=== PATIENT | male | born 1940 | race Caucasian/White ===

== ENCOUNTER → 2016-05-07 | Outpatient (CLI) | payer MEDICARE, BC ==
--- NOTE | 2016-05-07 16:15 | US ---
EXAMINATION TYPE: US thyroid st tissue head/neck DATE OF EXAM: 05/07/2016 2:49 PM COMPARISON: No previous CLINICAL HISTORY: 75-year-old male Thyroid Nodule. Ghazal's thyroiditis TECHNIQUE: Multiple sonographic images of the thyroid gland are obtained. FINDINGS: Right Lobe: 5.7 x 2.4 x 2.1cm, heterogeneous Left Lobe: 5.7 x 2.0 x 1.7cm, heterogeneous Isthmus Thickness: 0.6cm Previously, the thyroid gland measured up to 5.4 and 4.8 cm on the right and left sides, respectively . There is continued diffuse heterogeneous echotexture. No discrete nodule is seen. IMPRESSION: Continued diffuse glandular heterogeneity and progressive thyromegaly. Findings suggest diffuse thyro iditis. No discrete nodule.
== END | disposition home or self-care (01) ==
LOC: RADUSWWP 14:29
PROVIDERS: ATTEND Otolaryngology
DX: E01.0 Iodine-deficiency related diffuse (endemic) goiter (principal)
CPT/HCPCS: 76536

== ENCOUNTER 2016-09-01 08:01 | Day surgery (SDC) | payer MEDICARE, BC ==
[2016-08-27 13:47] VITALS: BMI 27.3
[~2016-09-01 08:01] MED LIST: LACTATED RINGERS 1,000 ML IV SCH
[2016-09-01 08:34] VITALS: TEMP 97.5
[2016-09-01] MEDS ORDERED: LIDOCAINE 1% 20 ML VIAL (10MG/ML) FOR IV START INTRADERMA ONE (08:46)
[2016-09-01] MEDS ORDERED: PROPOFOL 10 MG/ML 20 ML VIAL IV ONE (10:02)
[2016-09-01 10:52] VITALS: RESP 16
--- NOTE | 2016-09-01 11:02 | P.PCN ---
Date of Procedure: 09/01/16 Preoperative Diagnosis: Postoperative Diagnosis: Procedure(s) Performed: Procedures: 1. Esophagogastroduodenoscopy and biopsy. 2. Colonoscopy and biopsy. Preoperative diagnosis: Chronic reflux symptoms, rectal bleeding and history of polyps. Postoperative diagnosis: 1. Hiatal hernia with no evidence of esophagitis or complicated reflux disease. 2. Mild antral gastritis and duodenitis. 3. Sigmoid diverticulosis with no evidence of acute diverticulitis or strictures. 4. Short segments of nonspecific colitis in the distal sigmoid and distal rectum, biopsied, that could be related to radiation treatment. 5. Low-grade internal hemorrhoids without bleeding at the time of this exam. Preparation: HalfLytely prep. Sedation: Was provided by anesthesia. Brief clinical history: The patient is a 75-year-old male who is scheduled for this evaluation for the above reasons. The patient was evaluated in the office last month when he presented with intermittent rectal bleeding, 2 months duration he also reported constipation over the same period of time. His bleeding was described as fresh bleeding. He also has chronic reflux symptoms requiring PPI therapy. On his last colonoscopy in June 2014. A flat polyp around the hepatic flexure which was removed and pathology showed tubular adenoma. Patient had prior radiation therapy for prostate cancer. Procedure: With the patient on her left lateral decubitus position and after informed consent and adequate sedation, I passed the Olympus-GIF 160 video upper endoscope through the cricopharyngeus down the esophagus. GE junction was around 42-43 cm from the incisors and there was a small sliding hiatal hernia. The esophagus did not show any erosions, ulcers, strictures or Herr 's esophagus. The endoscope was then passed into the stomach which was insufflated with air and inspected in detail including the retroflex view in the cardia. There was some mottling and erythema in the antrum consistent with gastritis but no ulcers or erosions. Pyloric channel did not show any ulcers. Duodenal bulb, post bulbar area and descending duodenum showed minimal erythema. Because of his symptoms I obtained biopsies from the duodenum, antrum and esophagus then the endoscope was withdrawn and I proceeded with the colonoscopy. Perianal area did not show any fissures or fistulas. There were no masses felt on digital rectal examination. The Olympus CFQ 160L video colonoscope was then inserted in the rectum in the usual fashion and advanced to the cecum. There were several diverticular orifices seen scattered in the sigmoid with no evidence of acute diverticulitis or strictures. There were 2 short segments of nonspecific colitis in the distal sigmoid and distal rectum. The mucosa, otherwise, appeared healthy. There was no polyps or tumors seen. The area around the splenic flexure where he had a polyp removed did not show any residual or new pathology. I obtained biopsies in the sigmoid and rectum then I retroflexed the endoscope in the rectum before the endoscope was withdrawn. Low-grade internal hemorrhoids were noted with no evidence of bleeding. The patient tolerated the procedure well. Plan: The patient was reassured. Will await pathology results and make further recommendations. I will keep you updated on his progress. Implants: Indications for Procedure: Operative Findings: Description of Procedure:
[2016-09-01 11:13] VITALS: BP 115/68; PULSE 57
== END 2016-09-01 14:00 | disposition home or self-care (01) ==
LOC: ORWHC2ENDO 08:01
DX: K20.9 Esophagitis, unspecified (principal); K29.50 Unspecified chronic gastritis without bleeding; K44.9 Diaphragmatic hernia without obstruction or gangrene; K52.9 Noninfective gastroenteritis and colitis, unspecified; Z86.010 Personal history of colon polyps; K29.80 Duodenitis without bleeding; K57.30 Diverticulosis of large intestine without perforation or abscess without bleeding; Z95.5 Presence of coronary angioplasty implant and graft; K64.8 Other hemorrhoids; E78.5 Hyperlipidemia, unspecified; I10 Essential (primary) hypertension; I25.10 Atherosclerotic heart disease of native coronary artery without angina pectoris; E07.9 Disorder of thyroid, unspecified; N42.9 Disorder of prostate, unspecified; Z79.82 Long term (current) use of aspirin; Z79.899 Other long term (current) drug therapy; Z91.030 Bee allergy status
CPT/HCPCS: 88305; 88342; 45380; 43239; J2704

== ENCOUNTER 2016-11-23 09:54 | Day surgery (SDC) | payer MEDICARE, BC ==
[2016-11-19 10:52] VITALS: BMI 28.0
[2016-11-23 10:22] VITALS: RESP 18; TEMP 96.9
[2016-11-23] MEDS ORDERED: LIDOCAINE 1% 20 ML VIAL (10MG/ML) FOR IV START INTRADERMA ONE (10:23)
[2016-11-23] MEDS ORDERED: PROPOFOL 10 MG/ML 20 ML VIAL IV ONE (10:24)
[2016-11-23] MEDS ORDERED: fentaNYL (PF) 50 MCG/ML 2 ML AMP ONE (10:24)
[2016-11-23 11:11] VITALS: BP 131/77; PULSE 64
--- NOTE | 2016-11-23 13:53 | P.PCN ---
Date of Procedure: 11/23/16 Preoperative Diagnosis: Postoperative Diagnosis: Procedure(s) Performed: Procedure: Colonoscopy and argon plasma coagulation of rectal ectasias. Preoperative diagnosis: Rectal bleeding and history of chronic colitis and radiation proctitis. Postoperative diagnosis: 1. Segmental proctitis and colitis involving the distal sigmoid with ectasias in the rectum consistent with radiation proctitis, S/P treatment with argon plasma coagulation. 2. Sigmoid diverticulosis. 3. Low -grade internal hemorrhoids. Preparation: HalfLytely prep. Sedation: Was provided by anesthesia. Brief clinical history: The patient is a 75-year-old male who is scheduled for this evaluation for the above reasons. The patient was evaluated in the office in September in F/U following his colonoscopy 09/01/2016 performed for intermittent rectal bleeding of 2 months duration. His bleeding was described as fresh bleeding. His colonoscopy showed colitis in distal sigmoid and rectum. Biopsies showed acute colitis with chronicity. Patient had prior radiation therapy for prostate cancer in 2011, but had chronic colitis on biopsies prior to that. Procedure: With the patient on her left lateral decubitus position and after informed consent and adequate sedation, the perianal area was inspected and it did not show any fissures or fistulas. There were no masses felt on digital rectal examination. The Olympus CFQ 160L video colonoscope was then inserted in the rectum in the usual fashion and advanced to the cecum. There were several diverticular orifices seen scattered in the sigmoid with no evidence of acute diverticulitis or strictures. There were 2 short segments of nonspecific colitis in the distal sigmoid and distal rectum as previously described. The mucosa, otherwise, appeared healthy. There was no polyps or tumors seen. The area around the splenic flexure where he had a polyp removed in 2014 did not show any residual or new pathology. I retroflexed the endoscope in the rectum before the endoscope was withdrawn. Low-grade internal hemorrhoids were noted with no evidence of bleeding. At this point, I proceeded to use the argon plasma coagulation power A40 to coagulate the ectatic vessels in the distal rectum with good hemostasis. No biopsies were obtained today. The patient tolerated the procedure well. Plan: The patient was reassured. I discussed dietary measures and local care. I will see him in follow-up in the office and make further recommendations based on his course. I will keep you updated on his progress. Implants: Indications for Procedure: Operative Findings: Description of Procedure:
== END 2016-11-23 11:25 | disposition home or self-care (01) ==
LOC: ORWHC2ENDO 09:54
DX: K62.89 Other specified diseases of anus and rectum (principal); K62.5 Hemorrhage of anus and rectum; K52.9 Noninfective gastroenteritis and colitis, unspecified; K62.7 Radiation proctitis; K57.30 Diverticulosis of large intestine without perforation or abscess without bleeding; K64.8 Other hemorrhoids; Z85.46 Personal history of malignant neoplasm of prostate; Z92.3 Personal history of irradiation; J44.9 Chronic obstructive pulmonary disease, unspecified; I10 Essential (primary) hypertension; K21.9 Gastro-esophageal reflux disease without esophagitis; I25.10 Atherosclerotic heart disease of native coronary artery without angina pectoris; E07.9 Disorder of thyroid, unspecified; Z95.5 Presence of coronary angioplasty implant and graft; Z79.82 Long term (current) use of aspirin; Z79.899 Other long term (current) drug therapy; Z91.030 Bee allergy status
CPT/HCPCS: 45382; J3010; J2704

== ENCOUNTER → 2017-05-12 | Outpatient (CLI) | payer MEDICARE, BC ==
--- NOTE | 2017-05-13 17:57 | US ---
EXAMINATION TYPE: US thyroid st tissue head/neck DATE OF EXAM: 05/12/2017 COMPARISON: 05/07/2016 CLINICAL HISTORY: E07.9 Thyromegaly; Difficulty swallowing per patient; taking thyroid medication GLAND SIZE: Right Lobe: 5.5 x 2.0 x 2.6 cm Overall Parenchyma: heterogenous Left Lobe: 5.3 x 1.9 x 2.9 cm Overall Parenchyma: heterogeneous Isthmus Thickness: 0.3 cm NODULES RIGHT: # of nodules measured on right: 0 LEFT: # of nodules measured on left: 1 1. 0.6 X 0.5 x 0.5 cm isoechoic solid nodule at the upper medial pole with well-defined margins. T his nodule is wider as is tall and shows no intranodular vascularity. No nodule measured previously. ISTHMUS: # of nodules measured in the isthmus: 0 Bilateral neck scanned, no evidence of lymphadenopathy. IMPRESSION: 1. Subcentimeter nodule left lobe thyroid which appears new
== END | disposition home or self-care (01) ==
LOC: RADUSWWP 14:00
PROVIDERS: ATTEND Otolaryngology
DX: E04.1 Nontoxic single thyroid nodule (principal)
CPT/HCPCS: 76536

== ENCOUNTER 2017-09-29 10:40 | Day surgery (SDC) | payer MEDICARE, BC ==
[2017-09-22 16:43] VITALS: BMI 27.9
[~2017-09-29 10:40] MED LIST changes: +ALPRAZolam 0.25 MG TAB PO PRN; +ALPRAZolam 0.5 MG TAB PO PRN; +ASPIRIN 325 MG TAB PO STA; +ATORVASTATIN 80 MG TAB PO STA; -LACTATED RINGERS 1,000 ML IV SCH; +NITROGLYCERIN SL TABS 0.4 MG TAB SUBLINGUAL PRN; +SODIUM CHLORIDE 0.9% 1,000 ML in EMPTY BAG 1 BAG IV ONE
[2017-09-29] MEDS ORDERED: fentaNYL (PF) 50 MCG/ML 2 ML AMP IV ONE (13:25)
[2017-09-29] MEDS ORDERED: LIDOCAINE 2% SYG (PF) 100 MG/5 ML MISCELLANE ONE (13:29)
[2017-09-29] MEDS ORDERED: VERAPAMIL SYRINGE (5 MG/10 ML) INTRAARTER ONE (13:32)
[2017-09-29 13:40] LABS: Basophils % (A) 1 %; Eosinophils # (A) 0.5 k/uL (0-0.7); Eosinophils % (A) 7 %; HCT 42.5 % (39.0-53.0); HGB 14.4 gm/dL (13.0-17.5); Lymphocytes # (A) 2.3 k/uL (1.0-4.8); Lymphocytes % (A) 31 %; MCH 33.9 pg (25.0-35.0); MCHC 33.9 g/dL (31.0-37.0); MCV 100.1 fL (80.0-100.0); Mean Platelet Volume 7.1; Monocytes # (A) 0.5 k/uL (0-1.0); Monocytes % (A) 7 %; Neutrophils # (A) 3.9 k/uL (1.3-7.7); Neutrophils % (A) 53 %; Platelet Count 196 k/uL (150-450); RBC 4.25 m/uL (4.30-5.90); RDW 12.7 % (11.5-15.5); WBC 7.4 k/uL (3.8-10.6)
[2017-09-29] MEDS ORDERED: BIVALIRUDIN BOLUS 250 MG/50 ML IV ONE ×2 (13:40)
[2017-09-29] MEDS ORDERED: BIVALIRUDIN 250 MG in SODIUM CHLORIDE 0.9% 40 ML IV ONE (13:41)
[2017-09-29] MEDS ORDERED: CLOPIDOGREL 75 MG TAB PO ONE (13:46)
[2017-09-29] MEDS ORDERED: BIVALIRUDIN 250 MG in SODIUM CHLORIDE 0.9% 50 ML IV ONE (14:32)
[2017-09-29] MEDS ORDERED: IOPAMIDOL-370 125ML BTL INJ ONE (14:40)
[2017-09-29] MEDS ORDERED: IOPAMIDOL-370 100ML BTL INJ ONE ×2 (14:41)
[2017-09-29] MEDS ORDERED: NITROGLYCERIN SL TABS 0.4 MG TAB SUBLINGUAL PRN (14:44)
[2017-09-29] MEDS ORDERED: MAG HYDROX/AL HYDROX/SIMETH 30 ML CUP PO PRN (14:44)
[2017-09-29] MEDS ORDERED: ZOLPIDEM 5 MG TAB PO PRN (14:44)
[2017-09-29] MEDS ORDERED: ATROPINE SULFATE 0.1 MG/ML 10ML SYRINGE IV PRN (14:44)
[2017-09-29] MEDS ORDERED: RX INFO: IV CONTRAST WAS GIVEN 1 EACH MISC MISCELLANE PRN (14:44)
[2017-09-29] MEDS ORDERED: SODIUM CHLORIDE 0.9% 1,000 ML IV SCH (14:45)
[2017-09-29] MEDS ORDERED: PANTOPRAZOLE 40 MG TABLET PO PRN (14:46)
[2017-09-29] MEDS ORDERED: ACETAMINOPHEN TAB 500 MG TAB PO PRN (14:46)
[2017-09-29] MEDS ORDERED: amLODIPine 5 MG TAB PO SCH (16:00)
--- NOTE | 2017-09-29 19:20 | CC ---
CARDIAC CATHETERIZATION REPORT HISTORY: Ms. Frederick is a 76-year-old male, known history of coronary artery disease, status post stenting of the right coronary artery in 2001, history of hypertension, hyperlipidemia, who has been complaining of episodes of chest discomfort consistent with angina pectoris of new onset. In view of that, recommendation made regarding cardiac catheterization. The procedures, risks and complication were discussed with the patient who is in full understanding and agreement. PROCEDURE: Patient was brought to the shop laborer in a fasting semi-sedated state after receiving fentanyl and Benadryl and achieving moderate conscious sedated state. Using Xylocaine anesthesia and Seldinger technique, a 6-Norwegian sheath was introduced in the right radial artery. Selective right and left coronary angiography performed using 5-Norwegian 3-1/2 bend right and left Danny catheter. Multiple views of the coronary artery including hemiaxial views were obtained. Following that, catheter removed. Images were reviewed. FINDINGS: LEFT MAIN: This is a large-sized vessel, bifurcating in left circumflex, left anterior descending artery. The left main coronary artery has a 30% to 40% plaque distally. LEFT ANTERIOR DESCENDING ARTERY: This is a large-sized vessel, reaching toward the apex, with a wrap around the apex segment, giving rise to 2 diagonal branches. Left anterior descending artery has mild intimal disease without any evidence of high-grade stenosis. LEFT CIRCUMFLEX: This is a nondominant vessel, giving rise to 3 obtuse marginal branches. The first one is the largest in caliber. The takeoff of the left circumflex has a 60% to 70% plaque. The first obtuse marginal branch has a 99% stenosis. The rest of the vessel has no high-grade stenosis. RIGHT CORONARY ARTERY: This is a large dominant vessel bifurcating distally PDA and posterolateral segment and branches. The right coronary artery is stented in the mid segment. It has in-stent stenosis of about 70%, extending distally to the stent. The right PDA is totally occluded shortly after the takeoff with no significant antegrade flow. COLLATERALS: There are collaterals from the left coronary system toward the right PDA. CONCLUSION: 1. Critical stenosis involving the first obtuse marginal branch. 2. Chronically occluded right PDA. 3. Significant stenosis in the mid right coronary artery. 4. Moderate disease in the distal left main with moderate significant disease in the ostial left circumflex. RECOMMENDATIONS: In view of finding of anatomy, recommend proceeding with angioplasty and stenting of the obtuse marginal branch and the right coronary artery. The procedure as well as the risks and complications were discussed with the patient who is in full understanding and agreement. MMODL / IJN: [id number] /
--- NOTE | 2017-09-29 19:23 | PTCA ---
PERCUTANEOUSTRANS CORORONARY ANGIOGRAPHY Mr. Frederick is a 76-year-old male with a known history of coronary artery disease who presented with symptoms of recent onset angina pectoris, underwent cardiac catheterization, was found to have significant stenosis involving the left circumflex, 1st obtuse marginal branch and the right coronary artery. Recommendation was made regarding angioplasty and stenting. The procedures, risks and complications were discussed with the patient who is in full understanding and agreement. PROCEDURE: A 6-Haitian FL 3.5 guiding catheter was introduced into the system. After cannulating the left main, a 0.014 balanced medium weight J-wire was advanced across the lesion, positioned distally. Then a 2.5 x 12 mm Trek balloon was advanced. One inflation at 8 atmospheres was done. Following that, the balloon was removed. The balloon was removed and a 2.5 x 15 mm Xience Alpine stent was deployed. It was dilated at 14 atmospheres. After the last inflation, after appropriate wait, the balloon and the guidewire were withdrawn back in the guiding catheter. Images were obtained and repeated. Those images revealed stable successful stenting. At that point, the guiding catheter, the balloon and the guidewire were removed and a 6-Haitian FR4 guiding catheter in the system. After cannulating the right coronary ostium, a corsair with a balanced medium weight J-wire was advanced across the system. Multiple attempts to cross the totally occluded right PDA were unsuccessful. That wire was removed and a Whisper J-wire was advanced and was unable to cross the total occlusion. Subsequently, a Iain XT wire was advanced and in spite of multiple attempts, there were inability to cross the total occlusion. At that point, the wire was exchanged to a BMW through the corsair catheter and the corsair was removed. Subsequently, a 3.25 x 28 mm Xience Alpine stent was deployed in the mid segment and post dilated at 16 atmospheres. After the last inflation, after appropriate wait, the balloon and the guidewire were withdrawn back in the guiding catheter. Images were obtained and repeated. Those images revealed stable successful stenting. At that point, the guiding catheter, the balloon and the guidewire were removed and sheath was removed. Hemostasis was obtained with deployment of a TR band. There was no immediate complication. The patient was returned to his room in stable condition. Of note, the patient had chest discomfort with the inflation that resolved at the end of the procedure. He received Angiomax per protocol as well as oral loading dose of Plavix. He received intra-arterial verapamil at the start of his coronary angiography. RESULTS: 1. Successful stenting of the first obtuse marginal branch with reduction of stenosis from 99% to 0%. 2. Successful stenting of the mid right coronary artery with reduction of stenosis from 70% to 0%. 3. Inability to recannulize the totally occluded right coronary artery. RECOMMENDATION: At this time, I will recommend to continue present medical therapy. If the patient has persistent symptoms, then he will need to be evaluated either for ENAMELER intervention of the right PDA or depending on the left main, considering coronary artery bypass grafting. Those findings and recommendation were discussed with the patient and his family who are in full understanding and agreement. Duration of procedure is 109 minutes. NICKI / MARCI: [id number] /
[2017-09-29] MEDS ORDERED: ATORVASTATIN 40 MG TAB PO SCH (21:00)
[2017-09-29] MEDS ORDERED: MECLIZINE 12.5 MG TAB PO SCH (21:00)
[2017-09-29] MEDS ORDERED: FLUTICASONE 50MCG/SPRAY NASAL 16GM EA NOSTRIL SCH (21:00)
[2017-09-30] MEDS ORDERED: LEVOTHYROXINE 75 MCG TAB PO SCH (06:30)
--- NOTE | 2017-09-30 07:33 | PN ---
PROGRESS NOTE Mr. Frederick is a 76-year-old male who presented with symptoms of angina pectoris, underwent cardiac catheterization, who underwent stenting of his left circumflex, first obtuse marginal branch and mid right coronary artery. He had chronic total occlusion of the right PDA. He is doing well this morning ambulating without difficulty. Denying any chest pain. No dizziness. No palpitation. No nausea. He continues to be on amlodipine 5 mg daily, aspirin 81 mg daily, Lipitor 40 mg daily, Plavix 75 mg daily, isosorbide mononitrate 30 mg daily, levothyroxine 0.15 mg daily, losartan 50 mg daily, Protonix. PHYSICAL EXAMINATION: Blood pressure 130/60 with the heart rate in 60s. LUNGS: Clear. HEART: Regular rate and rhythm. S1, S2. No S3. No rub. ABDOMEN: Soft, nontender. EXTREMITIES: No edema. Right radial pulse intact. EKG revealed no acute changes. IMPRESSION: 1. Status post stenting of the first obtuse marginal branch and mid right coronary artery. 2. 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 3. Hypertension. 4. Hyperlipidemia. RECOMMENDATION: Patient will be discharged home today and followed as an outpatient. MMODL / IJN: [id number] /
[2017-09-30 07:53] LABS: Anion Gap 12 mmol/L; Blood Urea Nitrogen 17 mg/dL (9-20); Calcium 9.4 mg/dL (8.4-10.2); Carbon Dioxide 22 mmol/L (22-30); Chloride 107 mmol/L (98-107); Glucose 89 mg/dL (74-99); Potassium 4.3 mmol/L (3.5-5.1); Sodium 141 mmol/L (137-145)
[2017-09-30 08:09] VITALS: BP 144/72; PULSE 66; RESP 16; TEMP 96.9
[2017-09-30] MEDS ORDERED: ISOSORBIDE MONONITRATE ER 30 MG TAB.ER.24H PO SCH (09:00)
[2017-09-30] MEDS ORDERED: CHOLECALCIFEROL 1,000 UNIT TAB PO SCH (09:00)
[2017-09-30] MEDS ORDERED: LOSARTAN 50 MG TAB PO SCH (09:00)
[2017-09-30] MEDS ORDERED: ASPIRIN 81 MG PO SCH (09:00)
[2017-09-30] MEDS ORDERED: CLOPIDOGREL 75 MG TAB PO SCH (12:00)
== END 2017-09-30 10:05 | disposition home or self-care (01) ==
LOC: CATHCVL 10:40 → 6SEL 14:35 → CATHCVL 09-30 10:05
PROVIDERS: ATTEND Internal Medicine Interventional Cardiology
DX: I25.119 Atherosclerotic heart disease of native coronary artery with unspecified angina pectoris (principal); I10 Essential (primary) hypertension; F17.210 Nicotine dependence, cigarettes, uncomplicated; E78.2 Mixed hyperlipidemia; Z95.5 Presence of coronary angioplasty implant and graft; Z79.899 Other long term (current) drug therapy; Z79.02 Long term (current) use of antithrombotics/antiplatelets
CPT/HCPCS: 85347; 80048; 85025; C9600; C1769 ×4; C1887 ×3; C1894; C1725; C1874; J2001; J3010; J0583; Q9967 ×2; 93454

== ENCOUNTER → 2018-05-05 | Outpatient (CLI) | payer MEDICARE, BC | END | disposition home or self-care (01) | LOC: LABWHC1 15:11 | PROVIDERS: ATTEND Urology | DX: C61 Malignant neoplasm of prostate (principal); R97.21 Rising PSA following treatment for malignant neoplasm of prostate | CPT/HCPCS: 36415; 84153 ==

== ENCOUNTER → 2018-06-13 | Outpatient (CLI) | payer MEDICARE, BC ==
--- NOTE | 2018-06-13 15:50 | US ---
EXAMINATION TYPE: US thyroid st tissue head/neck DATE OF EXAM: 06/13/2018 COMPARISON: Ultrasound 05/12/2017 CLINICAL HISTORY: E04.1 goiter. Follow up left thyroid nodule, on thyroid meds GLAND SIZE: Right Lobe: 5.2 x 2.1 x 2.1 cm Overall Parenchyma: heterogenous Left Lobe: 5.1 x 2.2 x 1.6 cm Overall Parenchyma: heterogeneous Isthmus Thickness: 0.7 cm NODULES RIGHT: # of nodules measured on right: 0 LEFT: # of nodules measured on left: 1 1. 0.6 X 0.5 x 0.6 cm isoechoic solid nodule at the upper medial pole with well-defined margins. Th is nodule is wider than tall and shows intranodular vascularity. Prior size: 0.6 x 0.5 x 0.5 cm ISTHMUS: # of nodules measured in the isthmus: 0 Bilateral neck scanned, no evidence of lymphadenopathy. Heterogeneous gland with left lobe nodule. IMPRESSION: 1. Stable subcentimeter thyroid nodule left lobe thyroid
== END ==
LOC: RADUSWWP 14:32
PROVIDERS: ATTEND Otolaryngology
DX: E04.1 Nontoxic single thyroid nodule (principal)
CPT/HCPCS: 76536; 84443

== ENCOUNTER → 2018-07-19 | Outpatient (CLI) | payer MEDICARE, BC | END | disposition home or self-care (01) | LOC: LABWHC1 11:58 | PROVIDERS: ATTEND Urology | DX: C61 Malignant neoplasm of prostate (principal); R97.21 Rising PSA following treatment for malignant neoplasm of prostate | CPT/HCPCS: 36415; 84153 ==

== ENCOUNTER → 2018-11-01 | Outpatient (CLI) | payer MEDICARE, BC | END | disposition home or self-care (01) | LOC: LABWHC1 13:45 | PROVIDERS: ATTEND Urology | DX: C61 Malignant neoplasm of prostate (principal); R97.21 Rising PSA following treatment for malignant neoplasm of prostate | CPT/HCPCS: 36415; 84153 ==

== ENCOUNTER → 2019-01-03 | Outpatient (CLI) | payer MEDICARE, BC ==
--- NOTE | 2019-01-04 04:17 | NM ---
EXAMINATION TYPE: NM bone scan whole body DATE OF EXAM: 01/03/2019 COMPARISON: 07/08/2011 HISTORY: 78-year-old male history of prostate cancer with all over body aches. Technique: Delayed whole-body scanning was performed following the injection of 24.7 mCi Tc 99m MDP. Images acquired 3 hours post injection. FINDINGS: Scattered degenerative tracer activity suggestive of the shoulders, sternoclavicular joints, severe a t the left knee especially the medial compartment, and severe at the right ankle. Additional degenera tive activity at the base of the left thumb. No suspicious distribution of tracer to suggest osseous metastatic disease. IMPRESSION: Scattered degenerative tracer activity as above, particularly severe in the left knee and right ankle . No scintigraphic evidence for osseous metastatic disease.
== END | disposition home or self-care (01) ==
LOC: RADNMMAIN 09:30
PROVIDERS: ATTEND Urology
DX: C61 Malignant neoplasm of prostate (principal)
CPT/HCPCS: 78306; A9503

== ENCOUNTER → 2019-09-01 | Outpatient (CLI) | payer MEDICARE, BC | END | disposition home or self-care (01) | LOC: LABWHC1 10:33 | PROVIDERS: ATTEND Internal Medicine Interventional Cardiology | DX: U07.1 COVID-19 (principal) | CPT/HCPCS: 87635 ==

== ENCOUNTER 2019-09-05 06:28 | Day surgery (SDC) | payer MEDICARE, BC ==
[2019-09-04 09:00] VITALS: BMI 29.5
[~2019-09-05 06:28] MED LIST changes: -ATORVASTATIN 80 MG TAB PO STA
[2019-09-05 07:15] VITALS: RESP 16; TEMP 97.7
[2019-09-05] MEDS ORDERED: SODIUM CHLORIDE 0.9% 1,000 ML IV ONE (07:17)
[2019-09-05] MEDS ORDERED: LIDOCAINE 1% INJ 10MG/ML (20 ML MDV) ONE (07:18)
[2019-09-05] MEDS ORDERED: fentaNYL (PF) 50 MCG/ML 2 ML AMP ONE (07:18)
[2019-09-05] MEDS ORDERED: HEPARIN SODIUM 1,000 UN/ML (10ML VL) ONE (07:18)
[2019-09-05] MEDS ORDERED: VERAPAMIL 2.5 MG/ML 2 ML AMP ONE (07:18)
[2019-09-05 07:21] LABS: Basophils % (A) 1 %; Eosinophils # (A) 0.6 k/uL (0-0.7); Eosinophils % (A) 6 %; HCT 43.8 % (39.0-53.0); HGB 14.9 gm/dL (13.0-17.5); Lymphocytes # (A) 2.2 k/uL (1.0-4.8); Lymphocytes % (A) 24 %; MCH 34.6 pg (25.0-35.0); Mean Platelet Volume 7.3; Monocytes # (A) 0.5 k/uL (0-1.0); Monocytes % (A) 6 %; Neutrophils # (A) 5.5 k/uL (1.3-7.7); Neutrophils % (A) 62 %; Platelet Count 204 k/uL (150-450); RBC 4.29 m/uL (4.30-5.90); RDW 12.4 % (11.5-15.5); WBC 8.9 k/uL (3.8-10.6)
[2019-09-05 07:30] LABS: African American GFR (CKD) >90 (>60 ml/min/1.73 sqM); Anion Gap 9 mmol/L; Blood Urea Nitrogen 22 mg/dL (9-20); Calcium 9.2 mg/dL (8.4-10.2); Carbon Dioxide 19 mmol/L (22-30); Chloride 110 mmol/L (98-107); Glucose 98 mg/dL (74-99); Non-African American GFR(CKD) 79 (>60 ml/min/1.73 sqM); Potassium 4.1 mmol/L (3.5-5.1); Sodium 138 mmol/L (137-145)
[2019-09-05] MEDS ORDERED: fentaNYL (PF) 50 MCG/ML 2 ML AMP IV ONE (07:32)
[2019-09-05] MEDS ORDERED: LIDOCAINE 1% INJ 10MG/ML (20 ML MDV) SQ ONE (07:34)
[2019-09-05] MEDS ORDERED: VERAPAMIL SYRINGE (5 MG/10 ML) INTRAARTER ONE (07:37)
[2019-09-05] MEDS ORDERED: HEPARIN SODIUM 1,000 UN/ML (10ML VL) IV ONE (07:45)
[2019-09-05] MEDS ORDERED: IOPAMIDOL-370 125ML BTL INJ ONE (07:50)
[2019-09-05] MEDS ORDERED: RX INFO: IV CONTRAST WAS GIVEN 1 EACH MISC MISCELLANE PRN (08:06)
[2019-09-05] MEDS ORDERED: ALBUTEROL NEBULIZED 2.5 MG/3 ML INHALATION PRN (08:07)
[2019-09-05] MEDS ORDERED: FLUTICASONE 50MCG/SPRAY NASAL 16GM EA NOSTRIL PRN (08:07)
[2019-09-05] MEDS ORDERED: NITROGLYCERIN SL TABS 0.4 MG TAB SUBLINGUAL PRN (08:07)
[2019-09-05] MEDS ORDERED: PANTOPRAZOLE 40 MG TABLET PO PRN (08:07)
[2019-09-05] MEDS ORDERED: SODIUM CHLORIDE 0.9% 1,000 ML IV SCH (08:15)
[2019-09-05] MEDS ORDERED: NON FORMULARY DRUG (Fish Oil/Dha/Epa [Fish Oil 1,200 Mg Fish Oil] 1 EACH) PO SCH (09:00)
--- NOTE | 2019-09-05 09:22 | CC ---
CARDIAC CATHETERIZATION REPORT Mr. Frederick is an 78-year-old male with a known history of hypertension, hyperlipidemia, history of coronary artery disease, status post percutaneous revascularization who presented with symptoms of discomfort in the chest. In view of that, recommendation made regarding cardiac catheterization. The procedures, risks, and complications were discussed with the patient who is in full understanding and agreement. PROCEDURE: Patient was brought to wharf labourer in a fasting semi-sedated state after receiving fentanyl and Benadryl and achieving moderate conscious sedated state. Using Xylocaine anesthesia and Seldinger technique, a 6-Malay sheath was introduced in the right radial artery. Selective right and left coronary angiography performed using 5-Malay 3.5 bend right and left Danny catheter, multiple views of the coronary artery including hemiaxial views were obtained. Following that, a 5-Malay tight pigtail catheter was introduced into the left ventricle and pressures were calculated. Following that, catheter and sheath were removed. Hemostasis was obtained with deployment of a TR band. There was no immediate complication. Patient is returned to his room in stable condition. Of note, the patient received 5000 units of intravenous heparin as well as intra-arterial verapamil. FINDINGS: LEFT MAIN: This is a large-sized vessel, bifurcating into left circumflex, left anterior descending artery. Left main coronary artery had a 40% to 50% plaque distally. The rest of the vessel has no high-grade stenosis. LEFT ANTERIOR DESCENDING ARTERY: This is a large-sized vessel, reaching towards the apex with a wraparound apex segment, giving rise to 2 diagonal branches. The second one is smaller in caliber. The left anterior descending artery has intimal disease throughout its course of 20% to 30%. The second diagonal branch has a 50% to 60% stenosis. The rest of the vessel has no high-grade stenosis. LEFT CIRCUMFLEX: This is a nondominant vessel, moderate in caliber, giving rise to three obtuse marginal branches, the first one is the largest in caliber. The ostium of the left circumflex has a 60% stenosis. The first obtuse marginal branch stented segment is patent with no evidence of a stenosis. RIGHT CORONARY ARTERY: This is a large dominant vessel, bifurcating distally to PDA and posterolateral segment and branches. The right coronary artery stented segment in the mid area is patent with intimal restenosis of 30%. The right PDA is totally occluded. The PLV has intimal disease without any evidence of high-grade stenosis. Next colitis there is collateral from the left coronary system toward the right PDA. LEFT VENTRICULOGRAM: Left ventriculogram was not performed. HEMODYNAMICS: There was no gradient across the aortic valve. The ventricular end- diastolic pressure was 12-14 mmHg. CONCLUSION: 1. Patent stent in the first obtuse marginal branch and the mid right coronary artery. 2. Moderate disease in the distal left main, unchanged compared to images obtained in 2018. 3. Moderate significant disease of the ostium of the left circumflex with no progression. 4. Chronic occluded right PDA. RECOMMENDATION: Reviewing the images and after comparison with 2018, there was no significant progression of disease. I recommend continue medical therapy with aggressive risk modifications being initiated. Those findings and recommendation were discussed with the patient and his family and they are in full understanding and agreement. Duration of procedure is 18 minutes. MMMARCIA / MIKIEN: [id number] /
[2019-09-05] MEDS ORDERED: amLODIPine 5 MG TAB PO SCH (15:00)
[2019-09-05 15:03] VITALS: BP 109/62; PULSE 55
[2019-09-05] MEDS ORDERED: PRAMIPEXOLE 0.25 MG TAB PO SCH (21:00)
[2019-09-05] MEDS ORDERED: ATORVASTATIN 40 MG TAB PO SCH (21:00)
[2019-09-06] MEDS ORDERED: LEVOTHYROXINE 75 MCG TAB PO SCH (06:30)
[2019-09-06] MEDS ORDERED: ISOSORBIDE MONONITRATE ER 30 MG TAB.ER.24H PO SCH (09:00)
[2019-09-06] MEDS ORDERED: CHOLECALCIFEROL 1,000 UNIT TAB PO SCH (09:00)
[2019-09-06] MEDS ORDERED: BICALUTAMIDE 50 MG TAB PO SCH (09:00)
[2019-09-06] MEDS ORDERED: MULTIVITAMINS, THERA 1 EACH TAB PO SCH (09:00)
[2019-09-06] MEDS ORDERED: LOSARTAN 50 MG TAB PO SCH (09:00)
[2019-09-06] MEDS ORDERED: ASPIRIN 81 MG PO SCH (09:00)
== END 2019-09-05 13:00 | disposition home or self-care (01) ==
LOC: CATHCVL 06:28
PROVIDERS: ATTEND Internal Medicine Interventional Cardiology
DX: I25.110 Atherosclerotic heart disease of native coronary artery with unstable angina pectoris (principal); I25.82 Chronic total occlusion of coronary artery; I10 Essential (primary) hypertension; E78.2 Mixed hyperlipidemia; F17.210 Nicotine dependence, cigarettes, uncomplicated; Z95.5 Presence of coronary angioplasty implant and graft; Z79.82 Long term (current) use of aspirin; Z79.02 Long term (current) use of antithrombotics/antiplatelets; Z79.899 Other long term (current) drug therapy; Z79.890 Hormone replacement therapy
CPT/HCPCS: 93458; 80048; 85025; C1769; C1894; J2001; J3010; J1644; Q9967

== ENCOUNTER → 2020-02-12 | Outpatient (CLI) | payer MEDICARE, BC ==
[2020-02-12 17:51] LABS: African American GFR (CKD) 81.4 (60.0-200.0); Albumin 4.6 g/dL (3.80-4.90); Albumin/Globulin Ratio 2.09 (1.60-3.17); Anion Gap 8.6 mmol/L (4.00-12.00); Calcium 9.2 mg/dL (8.7-10.3); Carbon Dioxide 24.4 mmol/L (21.6-31.8); Chol/HDL Ratio 2.92; Globulin 2.2 g/dL (1.6-3.3); LDL Cholesterol,Calculated 69.8 mg/dL (0.0-131.0); Non-African American GFR(CKD) 70.3 (60.0-200.0); Potassium 4.5 mmol/L (3.5-5.5); Total Bilirubin 0.5 mg/dL (0.3-1.2); Total Protein 6.8 g/dL (6.2-8.2); VLDL Calculation 26.2 mg/dL (5.00-40.00)
== END | disposition home or self-care (01) ==
LOC: LABWHC1 09:11
PROVIDERS: ATTEND Internal Medicine Interventional Cardiology
DX: E78.2 Mixed hyperlipidemia (principal)
CPT/HCPCS: 36415; 80053; 80061

== ENCOUNTER → 2020-04-25 | Outpatient (CLI) | payer MEDICARE, BC ==
--- NOTE | 2020-04-25 15:12 | US ---
EXAMINATION TYPE: US thyroid st tissue head/neck DATE OF EXAM: 04/25/2020 COMPARISON: US 06/13/2018 CLINICAL HISTORY: E04.1 Thyroid nodule. GLAND SIZE: Right Lobe: 4.3 x 2.0 x 1.7 cm Overall Parenchyma: heterogenous Left Lobe: 5.0 x 2.0 x 1.6 cm Overall Parenchyma: heterogeneous Isthmus Thickness: 0.6 cm NODULES RIGHT: # of nodules measured on right: 0 LEFT: # of nodules measured on left: 0 ISTHMUS: # of nodules measured in the isthmus: 0 Bilateral neck scanned, no evidence of lymphadenopathy. Diffusely heterogeneous bilateral thyroid lobes IMPRESSION: Heterogenous appearing thyroid. Monitoring can be performed. No discrete suspicious nodules identifie d.
== END | disposition home or self-care (01) ==
LOC: RADUSWWP 14:31
PROVIDERS: ATTEND Otolaryngology
DX: R93.89 Abnormal findings on diagnostic imaging of other specified body structures (principal)
CPT/HCPCS: 76536

== ENCOUNTER → 2020-06-07 | Outpatient (CLI) | payer MEDICARE, BC ==
--- NOTE | 2020-06-07 11:26 | MM ---
Reason for exam: clinical finding. Baseline mammogram. History: Patient has history of other cancer at age 69. Taking other hormone for 1 year. Physical Findings: Nurse did not find any significant physical abnormalities on exam. MG 3D Diag Mammo W/Cad CHRISTOFER Bilateral CC and MLO view(s) were taken. No prior studies available for comparison. The breast tissue is heterogeneously dense. This may lower the sensitivity of mammography. There is no discrete abnormality. These results were verbally communicated with the patient and result sheet given to the patient on 06/07/20. ASSESSMENT: Incomplete: need additional imaging evaluation, BI-RAD 0 RECOMMENDATION: Ultrasound of the right breast.
--- NOTE | 2020-06-07 11:27 | USB ---
Reason for exam: clinical finding. History: Patient has history of other cancer at age 69. Taking other hormone for 1 year. US Breast RT Technologist: Lillie Fontana Right complete breast ultrasound includes all four quadrants, the retroareolar region and axilla. Finding demonstrates no cystic or solid lesion seen. These results were verbally communicated with the patient and result sheet given to the patient on 06/07/20. ASSESSMENT: Negative, BI-RAD 1 RECOMMENDATION: Clinical management of the right breast.
== END | disposition home or self-care (01) ==
LOC: RADMAMWWP 08:37
PROVIDERS: ATTEND Internal Medicine
DX: N63.10 Unspecified lump in the right breast, unspecified quadrant (principal); R92.8 Other abnormal and inconclusive findings on diagnostic imaging of breast
CPT/HCPCS: 77066; 76641; G0279; 77062

== ENCOUNTER → 2020-06-17 | Outpatient (CLI) | payer MEDICARE, BC ==
[2020-06-17 13:57] LABS: HGB 14.1 gm/dL (13.0-17.5); MCH 35.8 pg (25.0-35.0); MCHC 35.2 g/dL (31.0-37.0); MCV 101.7 fL (80.0-100.0); Mean Platelet Volume 7.3; Platelet Count 179 k/uL (150-450); RBC 3.93 m/uL (4.30-5.90); RDW 11.8 % (11.5-15.5); WBC 8.6 k/uL (3.8-10.6)
[2020-06-17 14:00] LABS: Appearance,Urine Clear (Clear); Bilirubin,Urine Negative (Negative); Blood,Urine Negative (Negative); Color,Urine Yellow; Glucose,Urine (UA) Negative (Negative); Ketones,Urine Negative (Negative); Leukocyte Esterase,Urine Negative (Negative); Nitrite,Urine Negative (Negative); Protein,Urine Negative (Negative); Specific Gravity,Urine 1.015 (1.001-1.035); Urobilinogen,Urine <2.0 mg/dL (<2.0)
[2020-06-17 14:07] LABS: INR 0.9 (<1.2); Partial Thromboplastin Time 24.4 sec (22.0-30.0)
[2020-06-17 14:10] LABS: Albumin 4.1 g/dL (3.5-5.0); Calcium 9.5 mg/dL (8.4-10.2); Potassium 4.2 mmol/L (3.5-5.1); Total Bilirubin 0.5 mg/dL (0.2-1.3); Total Protein 6.7 g/dL (6.3-8.2)
== END | disposition home or self-care (01) ==
LOC: LABPAT 12:17
PROVIDERS: ATTEND Orthopaedic Surgery
DX: Z01.818 Encounter for other preprocedural examination (principal); Z01.812 Encounter for preprocedural laboratory examination; Z79.01 Long term (current) use of anticoagulants
CPT/HCPCS: 80053; 81003; 85027; 85610; 85730; 87070

== ENCOUNTER 2020-07-04 08:40 | Day surgery (SDC) | payer MEDICARE, BC ==
[2020-06-28 08:54] VITALS: BMI 28.7
[~2020-07-04 08:40] MED LIST changes: +ACETAMINOPHEN TAB 500 MG TAB PO PRN; -ALPRAZolam 0.25 MG TAB PO PRN; -ALPRAZolam 0.5 MG TAB PO PRN; -ASPIRIN 325 MG TAB PO STA; +GABAPENTIN 300 MG CAP PO PRN; +HYDROmorphone 0.5 MG/0.5 ML SYRINGE IVP PRN; +MELOXICAM 7.5 MG TAB PO PRN; -NITROGLYCERIN SL TABS 0.4 MG TAB SUBLINGUAL PRN; +ONDANSETRON 4 MG/2 ML VIAL IVP ONE; +ONDANSETRON 4 MG/2 ML VIAL IVP PRN; -SODIUM CHLORIDE 0.9% 1,000 ML in EMPTY BAG 1 BAG IV ONE; +TRANEXAMIC ACID 1,000 MG in SODIUM CHLORIDE 0.9% 100 ML IVPB PRN
[2020-07-04] MEDS ORDERED: LIDOCAINE 1% (10MG/ML) FOR IV START INTRADERMA ONE (09:43)
[2020-07-04] MEDS: LACTATED RINGERS 1,000 ML IV SCH ×3 (09:44→19:55)
[2020-07-04] MEDS ORDERED: DEXAMETHASONE SOD PHOSPHATE 4 MG/ML 1 ML VIAL IV ONE (09:45)
[2020-07-04] MEDS ORDERED: MIDAZOLAM 2 MG/2 ML VIAL IV ONE (09:48)
[2020-07-04] MEDS ORDERED: ROPIVACAINE 0.2%-NS ON-Q PUMP 1,090 MG, EMPTY PAIN BALL 1 EACH MISCELLANE PRN (10:29)
--- NOTE | 2020-07-04 10:32 | P.ANPRN ---
Procedure Note - Anesthesia - Nerve Block Performed Left Adductor Canal Infusion Time Out Performed: Yes Date of Procedure: 07/04/20 Procedure Start Time: 09:48 Procedure Stop Time: 10:01 Location of Patient: PreOp Indication: Acute Post-Operative Pain, Requested by Surgeon Sedation Type: Sedate with meaningful contact maintained Preparation: Sterile Prep, Sterile Dressing Position: Supine Catheter: Indwelling Needle Types: Pajunk Needle Gauge: 21 Ultrasound used to visualize needle placement: Yes Ultrasound used to observe medication spread: Yes Blood Aspirated: No Pain Paresthesia on Injection Noted: No Resistance on Injection: Normal Image Stored and Saved: Yes Events: Uneventful and Well Tolerated (ropi .5% 20cc plus dexamethasone 4mg)
--- NOTE | 2020-07-04 10:34 | P.ANPRN ---
Procedure Note - Anesthesia - Nerve Block Performed Left iPack Single Time Out Performed: Yes Date of Procedure: 07/04/20 Procedure Start Time: 10:02 Procedure Stop Time: 10:08 Location of Patient: PreOp Indication: Acute Post-Operative Pain, Requested by Surgeon Sedation Type: Sedate with meaningful contact maintained Preparation: Sterile Prep Position: Supine Needle Types: Pajunk Needle Gauge: 21 Ultrasound used to visualize needle placement: Yes Ultrasound used to observe medication spread: Yes Blood Aspirated: No Pain Paresthesia on Injection Noted: No Resistance on Injection: Normal Image Stored and Saved: Yes Events: Uneventful and Well Tolerated (ropi .5% 20cc)
[2020-07-04] MEDS ORDERED: fentaNYL (PF) 50 MCG/ML 2 ML AMP ONE (11:09)
[2020-07-04] MEDS ORDERED: TRANEXAMIC ACID 1,000 MG/10 ML VIAL ONE (11:09)
[2020-07-04] MEDS ORDERED: PHENYLEPHRINE-0.9% NACL SYG 1,000 MCG/10 ML SYRINGE ONE (11:09)
[2020-07-04] MEDS ORDERED: SODIUM CHLORIDE 0.9% 100 ML BAG ONE (11:09)
[2020-07-04] MEDS ORDERED: PROPOFOL 10 MG/ML 20 ML VIAL IV ONE (11:09)
[2020-07-04] MEDS ORDERED: bisacodyL 10 MG SUPP RECTAL PRN (11:12)
[2020-07-04] MEDS ORDERED: HYDROmorphone 0.5 MG/0.5 ML SYRINGE IVP PRN ×2 (11:12)
[2020-07-04] MEDS ORDERED: diazePAM 5 MG TAB PO PRN (11:12)
[2020-07-04] MEDS ORDERED: NALOXONE 0.4 MG/ML 1 ML VIAL IV PRN (11:12)
[2020-07-04] MEDS ORDERED: ONDANSETRON 4 MG/2 ML VIAL IVP PRN (11:12)
[2020-07-04] MEDS ORDERED: NA PHOS,M-B/NA PHOS,DI-BA 133 ML ENEMA RECTAL PRN (11:12)
[2020-07-04] MEDS ORDERED: HYDROcodone/APAP 5-325MG 1 EACH TAB PO PRN (11:12)
[2020-07-04] MEDS ORDERED: MAGNESIUM HYDROXIDE 2,400 MG/10 ML CUP PO PRN (11:12)
[2020-07-04] MEDS ORDERED: ACETAMINOPHEN TAB 325 MG TAB PO PRN (11:12)
[2020-07-04] MEDS ORDERED: HYDROmorphone 0.2 MG/1 ML SYRINGE IVP PRN (11:12)
[2020-07-04] MEDS ORDERED: traMADol 50 MG TAB PO PRN (11:12)
[2020-07-04] MEDS ORDERED: TEMAZEPAM 15 MG CAP PO PRN (11:12)
[2020-07-04] MEDS ORDERED: ceFAZolin 3,000 MG in SODIUM CHLORIDE 0.9% IRRIGATIO 3,000 ML IRRIGATION ONE (11:14)
[2020-07-04] MEDS: ROPIVACAINE/EPI/CLONIDINE/KET 50 ML SYRINGE MISCELLANE PRN ×2 (11:43→12:32)
[2020-07-04] MEDS ORDERED: LACTATED RINGERS 1,000 ML IV ONE (13:03)
[2020-07-04] MEDS ORDERED: ROPIVACAINE 0.2%-NS ON-Q PUMP 2 MG/ML EACH MISCELLANE ONE (13:25)
--- NOTE | 2020-07-04 14:00 | XR ---
EXAMINATION TYPE: XR knee limited LT DATE OF EXAM: 07/04/2020 COMPARISON: NONE HISTORY: 79-year-old male evaluation for postoperative abnormality in alignment TECHNIQUE: 2 views FINDINGS: Images show placement of left total knee arthroplasty. Both distal femoral and proximal tibial compon ents of the prosthesis appear well seated without periprosthetic fracture. Alignment grossly anatomic . Anterior soft tissue swelling with scattered soft tissue air as well as intra-articular air related to recent operation. IMPRESSION: Uncomplicated postoperative appearance left total knee arthroplasty.
--- NOTE | 2020-07-04 15:44 | OP ---
OPERATIVE REPORT DATE OF PROCEDURE: 07/04/2020 SURGEON: Samm Tapia MD. [facility] RO[facility] ATTENDANT: Calos LOVE. PREOPERATIVE DIAGNOSIS: Left knee osteoarthrosis. POSTOP DIAGNOSIS: Left knee osteoarthrosis. OPERATION: Left total knee arthroplasty. ANESTHESIA: Spinal with sedation. ESTIMATED BLOOD LOSS: 100 mL. TOURNIQUET TIME: Tourniquet time was 58 minutes at 250 mmHg. COMPLICATIONS: None apparent. DRAINS: None. DISPOSITION: Postanesthesia care unit. INDICATIONS: Vincent is an 79-year-old male with longstanding history of left knee pain. History and physical examination are consistent with advanced left knee osteoarthrosis. He has been through significant nonoperative management up to this point. Further treatment options were discussed and he has decided to go forward with a left total knee arthroplasty. The risks of procedure were discussed with him in detail. These risks include, but are not limited to risk of infection, nerve damage, bleeding, pain, and a small risk of deep vein thrombosis which could lead to fatal pulmonary embolism. There is also risk of loosening of the implant which could require revision operation. The patient understands these risks. All of his questions were answered to his satisfaction. An appropriate informed consent was obtained. DESCRIPTION OF THE PROCEDURE: The patient identified in preoperative holding area. Surgical site was marked by both the patient and myself. He was given 2 grams of Ancef IV for prophylactic purposes. He was then transferred to the operative suite. He was placed supine on the operating room table. Spinal anesthetic was then administered and dosed per the Anesthesia Department without apparent complication. Examination under anesthesia was then performed. The patient was 5-7 degrees shy of full extension. He had 95 degrees of flexion. The medial collateral ligament, lateral collateral ligament and posterior cruciate ligaments were stable. Tourniquet was then placed high on the left upper thigh well-padded in preparation for surgery. The patient's left lower extremity was then prepped and draped in usual sterile fashion. Standard surgical pause was undertaken to ensure that we were operating on the correct site and that appropriate preoperative antibiotics had been given. All staff in the room were in agreement and we proceeded. The outlines of the patella were marked surgical pen. A planned 12 cm vertical incision was centered over the patella. It was marked with surgical pen. Leg was exsanguinated with an Esmarch dressing. The knee was then flexed and tourniquet inflated to 250 mmHg. Total tourniquet time for the procedure was 58 minutes Incision was then made with a 10 blade scalpel. Dissection was carried down sharply to the overlying fascia. Great care was taken to minimize the skin flaps. The knee was then exposed using a standard medial parapatellar approach. A small cuff of quadriceps tendon was then left for suturing. He was in quite a bit of varus preoperatively. A standard medial release was then made. The superficial medial collateral ligament was dissected off of the bone around to the posterior aspect of the proximal tibia. The medial meniscus was then excised as well. The lateral meniscus was also released anteriorly. The leg was then externally rotated. The patella was everted. The knee was flexed. Retractors were then placed to protect the collateral ligaments. I then proceeded to remove the infrapatellar fat pad. This was excised sharply tangentially with the fibers of the patellar tendon. I then proceeded to remove the peripheral osteophytes. This was done with a rongeur. I then proceeded with distal femoral resection. He did have a flexion contracture. A planned 11 mm resection was then done. The femoral canal was then entered in the midline of the femur approximately 10 mm anterior to the origin of the posterior cruciate ligament. The geno was then advanced down the center of the femur and placed intramedullary. Based on the preoperative radiographs, the angle between the anatomic and mechanical axis of the femur was approximately 4-5 degrees. The valgus angle of the distal femoral cutting guide was then set at 4 degrees for the left knee. The distal femoral cutting guide was then advanced over the intramedullary geno. This was seated firmly against the femur. I then as mentioned planned to take 11 mm off the distal femur. The cutting block was then secured on the femur with pins. The jig was removed. The distal femoral cut was made through the slot of the block. The pins were removed. The distal femoral cutting block was removed. The accuracy of the distal femoral cuts was checked with 2 flat bars. I then proceeded with femoral sizing. The posterior referencing sizing guide was held firmly against the resected distal surface of the femur. The posterior condyles were resting on the posterior plane of the guide. The sizing stylus was then placed onto the anterior femur. The size was measured as a size 10. I then assessed for femoral rotation. Plan was for 3 degrees external rotation. Three degrees external rotation was placed onto the jig. These holes were then marked. I then confirmed the rotation by 3 separate methods. This was done using epicondylar axis as well as Whitesides line and posterior referencing. It was deemed that the external rotation was proper. I then went forward with placing the femoral cutting block. This was placed over the previously placed pin holes. The Alexey wing was then placed onto the anterior slots to ensure that we would not notch the anterior femur with the anterior femoral cut. I then proceeded with the anterior femoral cut. This was flushed with the anterior cortex of the femur. The posterior cuts were then made followed by the anterior chamfer cut, then the posterior chamfer cut. The cutting block was then removed. Throughout the resection, the collateral ligaments were protected with retractors. I then placed a trial size 10 femur. It fit very nice medial-lateral and fit flush with the distal end of the femur. The drill holes were then made. I then proceeded with the tibial cutter. I planned for cruciate-retaining knee. The guide was placed and set for varus, valgus and for slope. The height was set for approximate 2 mm resection from the medial tibial plateau which was the lower side. I was happy with the alignment and amount of resection. The cutting block was then pinned to the proximal tibia. The alignment geno was removed. The proximal tibia was resected with a reciprocating saw. Again, this was done with retractors protecting the collateral ligaments as well as the posterior cruciate ligament. I then proceeded to evaluate the flexion and extension gaps. A 10 mm block was then placed. The flexion and extension gaps were equal. I then proceeded to resection of posterior osteophytes. He had very extensive posterior osteophytes. This was done using a curved osteotome. This resected the posterior osteophytes and posterior capsule stripping was done off the posterior aspect of the femur at this time. The osteophytes were then removed. I then proceeded with resection of the patella. The thickness of patella was measured using the caliper. The thickness was 24 mm. The thickness of the anticipated patellar dome was taken into account. Resection was performed and confirmed to be equal in 4 quadrants using a caliper. Approximately 14 mm of bone remained after resection. A 32 x 8.5 standard patellar trial was then placed. The holes drilled and the trial was then placed. I then proceeded to sizing tibial plate. A size F tibial plate fit very nicely. I then placed the trial femur, the tibial tray and patellar button. A 10 mm trial tibial insert was also placed. The components fit very nicely. He had full extension and flexion. The extension and flexion gaps were equal and stable to both varus and valgus stress. The patella tracked appropriately. The tibial tray rotation was then marked with a Bovie. This was externally rotated properly. I then proceeded with tibial preparation. I first drilled the femoral holes and removed femoral component. The tibial tray was then set for proper external rotation as well as mediolateral placement onto the tibia. It was then pinned into place. I then proceeded with punching the keel. I then decided to proceed with cementing of all of our components. The knee was thoroughly irrigated with sterile saline solution via pulse lavage. The lateral geniculate artery was identified and cauterized. All blood was removed from the bone of the tibia, femur and patella with pulse lavage. I then proceeded with cementing. Two packs of antibiotic bone cement prepared on the back table by the surgical scrub technologist. I then proceeded with cementing the tibia first. The cement was impacted into the keel as well as deeply seated into the bone. A second coat of cement was then placed. The tibia was then impacted into place. Excess cement was removed with Radha's and Jokers. I then proceeded with cementing of the femoral component. The femoral component was also cemented using standard technique. Excess cement was removed. A 10 mm trial insert was then placed into the knee. It was brought into full extension with a constant axial load placed until the cement had hardened. The patellar component was then cemented. This was held firmly with compressive device until the cement had dried. When the cement had dried, the knee was taken out of extension. All excess cement was removed from around the prosthesis. I then trialed with a 10 mm insert. Flexion extension gaps were appropriate. The knee was stable. It came into full extension. I decided to go forward with a 10 mm medial congruent cross-linked cruciate-retaining tibial insert. Polyethylene was then placed onto the tibial tray and locked into place. The knee was then reduced. The knee was again further irrigated with sterile saline solution with antibiotic added. The tourniquet was then deflated. The total tourniquet time for the procedure was 58 minutes at 250 mmHg. Final components were Judi Persona size 10 cruciate-retaining femoral component, size F tibial tray, a 10 mm medial congruent cruciate-retaining polyethylene insert and a 32 x 8.5 mm patella. I then proceeded with closure. Again, the knee was thoroughly irrigated. The quadriceps tendon and the medial retinaculum were reapproximated with #2 Ethibond suture. The extensor mechanism was then closed with a running #2 Quill suture. Subcutaneous tissues were closed with 2-0 Vicryl interrupted suture. The skin was closed with a running 3-0 Quill suture. Dermabond was applied to the incision. Sterile compressive dressing was then applied. All sponge and needle counts were deemed correct prior to closure. The patient tolerated the procedure without apparent complication. He was transferred to the recovery room in stable condition. MMODL / IJN: [id number] /
[2020-07-04] MEDS: ASPIRIN 81 MG PO SCH (19:54)
[2020-07-04] MEDS ORDERED: SENNOSIDES-DOCUSATE SODIUM 1 EACH TAB PO SCH (21:00)
[2020-07-05 03:19] VITALS: TEMP 97.7
[2020-07-05] MEDS: LACTATED RINGERS 1,000 ML IV SCH ×3 (04:14→07:48)
[2020-07-05 07:33] VITALS: BP 144/77; PULSE 64; RESP 18
--- NOTE | 2020-07-05 07:40 | P.PN ---
Progress Note - Text 07/05/20 717am 79-year-old male status post total knee replacement. Patient has an On-Q pump for postop pain control with the solution running at 8 mL an hour with a VAS of 5. Dressing is clean dry and intact. Plan to continue On-Q pump infusion
[2020-07-05] MEDS: ASPIRIN 81 MG PO SCH (07:45)
[2020-07-05] MEDS: HYDROcodone/APAP 10-325MG 1 EACH TAB PO PRN ×2 (07:45→13:33)
[2020-07-05 08:52] LABS: Basophils # (A) 0.04 X 10*3/uL (0.00-0.10); Basophils % (A) 0.2 %; Eosinophils # (A) 0 X 10*3/uL (0.04-0.35); Eosinophils % (A) 0 %; HCT 37.3 % (39.6-50.0); HGB 12.9 g/dL (13.0-17.0); Lymphocytes % (A) 7.1 %; MCH 34.8 pg (27.0-32.0); MCHC 34.6 g/dL (32.0-37.0); MCV 100.5 fL (80.0-97.0); Mean Platelet Volume 10.1 fL (9.5-12.2); Monocytes # (A) 1.39 X 10*3/uL (0.20-1.00); Monocytes % (A) 6.6 %; Neutrophils # (A) 17.94 X 10*3/uL (1.80-7.70); Neutrophils % (A) 85.5 %; Platelet Count 187 X 10*3/uL (140-440); RBC 3.71 X 10*6/uL (4.40-5.60); WBC 20.99 X 10*3/uL (4.50-10.00)
[2020-07-05] MEDS ORDERED: FLUTICASONE 50MCG/SPRAY NASAL 16GM EA NOSTRIL PRN (09:14)
[2020-07-05] MEDS ORDERED: ALBUTEROL NEBULIZED 2.5 MG/3 ML INHALATION PRN (09:14)
[2020-07-05] MEDS ORDERED: LOSARTAN 50 MG TAB PO SCH (09:30)
--- NOTE | 2020-07-05 10:21 | P.CONS ---
History of Present Illness - Reason for Consult Consult date: 07/05/20 medical management Requesting physician: Samm Tapia - Chief Complaint OA of the left knee - History of Present Illness This is an 79-year-old male patient of Dr. Godoy. Patient presented for an elective total left knee arthroplasty with Dr. Tapia. Patient is currently postop day 1. Patient reports that he has been up ambulating with walker complaints of minimum discomfort. Patient has a past medical history of prostate cancer in which she underwent procedure that he now requires straight catheterizations at home. Cohen catheter is in place. Additional medical history includes COPD, GERD hyperlipidemia and hypertension. Patient's white blood cell count elevated at 20.99. This does appear higher than patient's baseline. Patient is afebrile denies any acute complaints. Denies chest pain or shortness breath. Patient denies nausea vomiting or diarrhea. Patient does straight cath at home and currently has indwelling catheter in place will check UA to rule out infection. Patient states he's planning to be DC'd home with assistance of family. Possible discharge today per orthopedic services Review of Systems please refer to HPI otherwise unremarkable Past Medical History Past Medical History: Cancer, COPD, GERD/Reflux, GI Bleed, Hyperlipidemia, Hypertension, Prostate Disorder, Thyroid Disorder Additional Past Medical History / Comment(s): had both moderna vaccine doses,prostate CA recurrence 2019-on oral tx,PROSTATE CANCER (SURGERY & RADIATION [place] (2011) , hiatal hernia, constipation, hx ulcer yrs ago, INCONTINENT URINE-USES EXTERNAL MALE CATHETER, lt ear has fluid in ear drum causes occasional dizziness. History of Any Multi-Drug Resistant Organisms: None Reported Past Surgical History: Heart Catheterization With Stent, Hernia Repair, Prostate Surgery, Tonsillectomy Additional Past Surgical History / Comment(s): colonoscopy, surgery for artificial urethral sphincter inserted and removed., carpal tunnel-left, nasal surgery,heart stents x3,prostatectomy,left thumb Past Anesthesia/Blood Transfusion Reactions: No Reported Reaction Additional Past Anesthesia/Blood Transfusion Reaction / Comm: no hx blood transf usion Date of Last Stent Placement:: Smoking Status: Former smoker - Past Family History Sister(s) Family Medical History: No Reported History Brother(s) Family Medical History: Cancer, CVA/TIA Additional Family Medical History / Comment(s): testicular CA Medications and Allergies Home Medications Medication Instructions Recorded Confirmed Type Cholecalciferol [Vitamin D3 (25 2,000 unit PO DAILY 06/25/14 07/04/20 History Mcg = 1000 Iu)] Multivit-Min/FA/Lycopen/Lutein 1 tab PO DAILY 11/05/15 07/04/20 History [Centrum Silver Tablet] amLODIPine [Norvasc] 5 mg PO 1500 11/05/15 07/04/20 History Aspirin [Adult Low Dose Aspirin EC] 81 mg PO DAILY 08/27/16 07/04/20 History Fluticasone Nasal [place] [Flonase 1 spray EA NOSTRIL HS PRN 09/22/17 07/04/20 History Nasal [place]] Losartan [Cozaar] 50 mg PO QAM 09/22/17 07/04/20 History Omeprazole [PriLOSEC] 20 mg PO QAM 09/22/17 07/04/20 History Nitroglycerin Sl Tabs [Nitrostat] 0.4 mg SUBLINGUAL Q5M PRN #25 tab 09/30/17 07/04/20 Rx Albuterol Inhaler [Ventolin Hfa 2 puff INHALATION DIRECTED PRN 09/04/19 07/04/20 History Inhaler] Atorvastatin [Lipitor] 40 mg PO HS 09/04/19 07/04/20 History Bicalutamide [Casodex] 50 mg PO DAILY 09/04/19 07/04/20 History Fish Oil/Dha/Epa [Fish Oil 1,200 1 each PO DAILY 09/04/19 07/04/20 History mg Fish Oil] Levothyroxine Sodium [Levoxyl] 150 mcg PO QAM 09/04/19 07/04/20 History Pramipexole Di-HCl [Mirapex] 1 mg PO HS 09/04/19 07/04/20 History Isosorbide Mononitrate ER [Imdur] 30 mg PO QAM 06/28/20 07/04/20 History Acetaminophen [Tylenol Extra 500 - 1,000 mg PO Q6H PRN 07/03/20 07/04/20 History Strength] Allergies Allergy/AdvReac Type Severity Reaction Status Date / Time venom-honey bee Allergy Severe Swelling Verified 07/04/20 09:22 [bee venom (honey bee)] Physical Exam Vitals: Vital Signs Temp Pulse Pulse Resp BP Pulse Ox 07/05/20 07:32 97.7 F 64 18 144/77 95 07/05/20 02:10 97.7 F 63 15 124/56 95 07/04/20 19:10 15 07/04/20 19:05 97.5 F L 59 L 15 130/66 95 07/04/20 18:00 59 L 16 114/59 98 07/04/20 17:00 59 L 17 117/59 99 07/04/20 16:00 58 L 16 121/60 99 07/04/20 15:00 55 L 16 116/58 100 07/04/20 14:45 52 L 16 121/58 99 07/04/20 14:30 59 L 16 119/58 94 L 07/04/20 14:15 53 L 16 122/59 95 07/04/20 14:00 55 L 16 118/59 96 07/04/20 13:45 52 L 16 111/57 97 07/04/20 13:30 52 L 16 121/59 100 07/04/20 13:15 98.8 F 52 L 16 118/56 95 Intake and Output 07/04/20 07/05/20 07/05/20 22:59 06:59 14:59 Intake Total 300 50 Output Total 300 1750 Balance 0 -1750 50 Intake: IV 300 Intake, IV Titration 50 Amount ceFAZolin 2 gm In Sodium 50 Chloride 0.9% 50 ml @ 100 mls/hr IVPB Q8H [facility] Rx#: [id number] Output: Urine 300 1750 Other: Voiding Method Indwelling Catheter Indwelling Catheter # Bowel Movements 0 Weight 92.9 kg Head normocephalic Neck supple Lungs clear to auscultation bilaterally no wheezing or crackles Heart regular rate and rhythm S1-S2, no rub or gallop Abdomen is soft nontender nondistended positive bowel sounds no hepatosplenomegaly Extremities no edema. Left knee dressing is clean dry and intact Neuro alert and orientated to 3 Results CBC & Chem 7: 07/05/20 05:38 Labs: Abnormal Lab Results - Last 24 Hours (Table) 07/05/20 Range/Units 05:38 WBC 20.99 H (4.50-10.00) X 10*3/uL RBC 3.71 L (4.40-5.60) X 10*6/uL Hgb 12.9 L (13.0-17.0) g/dL Hct 37.3 L (39.6-50.0) % MCV 100.5 H (80.0-97.0) fL MCH 34.8 H (27.0-32.0) pg Immature Gran # 0.12 H (0.00-0.04) X 10*3/uL Neutrophils # 17.94 H (1.80-7.70) X 10*3/uL Monocytes # 1.39 H (0.20-1.00) X 10*3/uL Eosinophils # 0 L (0.04-0.35) X 10*3/uL Assessment and Plan Assessment: 1. Status post total left knee arthroplasty. Patient is currently postop day 1. Patient is currently maintained on aspirin 81 mg twice a day per orthopedic services 2. Leukocytosis. WBC elevated at 20.99. afebrile. Denies any acute complaints will check UA 3. History of prostate cancer in which he underwent surgery in which patient now requires straight catheterizations at home 4. History of COPD no exacerbation at this time 5. History of GERD 6. Hyperlipidemia. Maintained on statin 7. History of essential hypertension 8. Hypothyroidism. Maintained on Synthroid Thank you for this consultation we'll continue to follow patient closely throughout stay
[2020-07-05 11:05] LABS: ALT 16 U/L (4-49); AST 26 U/L (17-59); African American GFR (CKD) >90 (>60 ml/min/1.73 sqM); Albumin 3.8 g/dL (3.5-5.0); Albumin/Globulin Ratio 1.5; Alkaline Phosphatase 63 U/L (38-126); Anion Gap 8 mmol/L; Blood Urea Nitrogen 27 mg/dL (9-20); Calcium 9.2 mg/dL (8.4-10.2); Carbon Dioxide 23 mmol/L (22-30); Chloride 106 mmol/L (98-107); Globulin 2.5 g/dL; Glucose 99 mg/dL (74-99); Non-African American GFR(CKD) 80 (>60 ml/min/1.73 sqM); Potassium 4.3 mmol/L (3.5-5.1); Sodium 137 mmol/L (137-145); Total Bilirubin 0.5 mg/dL (0.2-1.3); Total Protein 6.3 g/dL (6.3-8.2)
[2020-07-05 11:08] LABS: Appearance,Urine Clear (Clear); Bilirubin,Urine Negative (Negative); Blood,Urine Negative (Negative); Color,Urine Yellow; Glucose,Urine (UA) Negative (Negative); Ketones,Urine Negative (Negative); Leukocyte Esterase,Urine Negative (Negative); Nitrite,Urine Negative (Negative); PH, Urine 5.5 (5.0-8.0); Protein,Urine Negative (Negative); Specific Gravity,Urine 1.024 (1.001-1.035); Urobilinogen,Urine <2.0 mg/dL (<2.0)
--- NOTE | 2020-07-05 11:37 | P.DS ---
Providers Expected date of discharge: 07/05/20 Attending physician: Samm Tapia Consults: 07/04/20 11:12 Consult Physician Routine Consulting Provider: Heike Tavera Consult Reason/Comments: post op medical management Do you want consulting provider notified?: Yes Primary care physician: Rima Godoy - Discharge Diagnosis(es) (1) Status post total left knee replacement Patient was admitted to the OR on 07/04/20 to undergo a left total knee arthroplasty. He had failed conservative measures as an outpatient and desired to proceed with elective surgery after given informed consent. He underwent the above procedure which he tolerated well without complication. Postoperative hospital course has remained without complication. On day of discharge he is afebrile, vital signs stable, labs within acceptable ranges, tolerating by mouth meds and diet, voiding without difficulty, positive flatus, denies abdominal pain or calf pain, pain is controlled on oral pain medication and has no new complaints. Wound is benign, neurovascular status is intact, calf is soft and nontender, abdomen soft and nontender. Review of systems is negative for numbness, tingling, fever, chills, chest pain, shortness of breath, nausea, vomiting, dizziness, headaches, slurred speech or other. Current Visit: Yes Status: Acute Priority: Medium Procedures: Left TKA Patient Condition at Discharge: Good Plan - Discharge Summary Discharge Rx Participant: No New Discharge Prescriptions: New Aspirin [Adult Low Dose Aspirin EC] 81 mg PO BID #60 tablet. Docusate [Colace] 100 mg PO BID #60 capsule HYDROcodone/APAP 7.5-325MG [[place] 7.5-325] 1 - 2 each PO Q6HR PRN #42 tab PRN Reason: Pain Continue Cholecalciferol [Vitamin D3 (25 Mcg = 1000 Iu)] 2,000 unit PO DAILY amLODIPine [Norvasc] 5 mg PO 1500 Multivit-Min/FA/Lycopen/Lutein [Centrum Silver Tablet] 1 tab PO DAILY Omeprazole [PriLOSEC] 20 mg PO QAM Losartan [Cozaar] 50 mg PO QAM Fluticasone Nasal [place] [Flonase Nasal [place]] 1 spray EA NOSTRIL HS PRN PRN Reason: Congestion Nitroglycerin Sl Tabs [Nitrostat] 0.4 mg SUBLINGUAL Q5M PRN #25 tab PRN Reason: Chest Pain Albuterol Inhaler [Ventolin Hfa Inhaler] 2 puff INHALATION DIRECTED PRN PRN Reason: Wheezing Fish Oil/Dha/Epa [Fish Oil 1,200 mg Fish Oil] 1 each PO DAILY Pramipexole Di-HCl [Mirapex] 1 mg PO HS Bicalutamide [Casodex] 50 mg PO DAILY Levothyroxine Sodium [Levoxyl] 150 mcg PO QAM Atorvastatin [Lipitor] 40 mg PO HS Isosorbide Mononitrate ER [Imdur] 30 mg PO QAM Acetaminophen [Tylenol Extra Strength] 500 - 1,000 mg PO Q6H PRN PRN Reason: Pain No Action Aspirin [Adult Low Dose Aspirin EC] 81 mg PO DAILY Discharge Medication List Cholecalciferol [Vitamin D3 (25 Mcg = 1000 Iu)] 2,000 unit PO DAILY 06/25/14 [History] Multivit-Min/FA/Lycopen/Lutein [Centrum Silver Tablet] 1 tab PO DAILY 11/05/15 [History] amLODIPine [Norvasc] 5 mg PO 1500 11/05/15 [History] Aspirin [Adult Low Dose Aspirin EC] 81 mg PO DAILY 08/27/16 [History] Fluticasone Nasal [place] [Flonase Nasal [place]] 1 spray EA NOSTRIL HS PRN 09/22/17 [History] Losartan [Cozaar] 50 mg PO QAM 09/22/17 [History] Omeprazole [PriLOSEC] 20 mg PO QAM 09/22/17 [History] Nitroglycerin Sl Tabs [Nitrostat] 0.4 mg SUBLINGUAL Q5M PRN #25 tab 09/30/17 [Rx] Albuterol Inhaler [Ventolin Hfa Inhaler] 2 puff INHALATION DIRECTED PRN 09/04/19 [History] Atorvastatin [Lipitor] 40 mg PO HS 09/04/19 [History] Bicalutamide [Casodex] 50 mg PO DAILY 09/04/19 [History] Fish Oil/Dha/Epa [Fish Oil 1,200 mg Fish Oil] 1 each PO DAILY 09/04/19 [History] Levothyroxine Sodium [Levoxyl] 150 mcg PO QAM 09/04/19 [History] Pramipexole Di-HCl [Mirapex] 1 mg PO HS 09/04/19 [History] Isosorbide Mononitrate ER [Imdur] 30 mg PO QAM 06/28/20 [History] Acetaminophen [Tylenol Extra Strength] 500 - 1,000 mg PO Q6H PRN 07/03/20 [History] Aspirin [Adult Low Dose Aspirin EC] 81 mg PO BID #60 tablet. 07/05/20 [Rx] Docusate [Colace] 100 mg PO BID #60 capsule 07/05/20 [Rx] HYDROcodone/APAP 7.5-325MG [[place] 7.5-325] 1 - 2 each PO Q6HR PRN #42 tab 07/05/20 [Rx] Follow up Appointment(s)/Referral(s): Rima Godoy MD [Primary Care Provider] - 07/10/20 11:15 am [facility] [NON-STAFF] - (Please call [facility] if you have questions regarding your new walker.) [facility], [NON-STAFF] - ([facility] will call you to arrange your first visit. ) Samm Tapia MD [STAFF PHYSICIAN] - 07/16/20 1:05 pm Ambulatory/Diagnostic Orders: Complete Blood Count w/diff [LAB.AMB] Time Frame: 2 Days, Location: None Selected Activity/Diet/Wound Care/Special Instructions: Keep wound clean and dry Take meds as directed Follow-up with Dr. Tapia in office Weight bear as tolerated May shower in 3 days if no bleeding Discharge Disposition: HOME WITH HOME HEALTH SERVICES
[2020-07-05] MEDS ORDERED: MULTIVITAMINS, THERA 1 EACH TAB PO SCH (12:00)
[2020-07-05] MEDS ORDERED: amLODIPine 5 MG TAB PO SCH (15:00)
[2020-07-05] MEDS ORDERED: PRAMIPEXOLE 1 MG TAB PO SCH (21:00)
[2020-07-05] MEDS ORDERED: ATORVASTATIN 40 MG TAB PO SCH (21:00)
[2020-07-06] MEDS ORDERED: LEVOTHYROXINE 75 MCG TAB PO SCH (06:30)
[2020-07-06] MEDS ORDERED: PANTOPRAZOLE 40 MG TABLET PO SCH (07:30)
[2020-07-06] MEDS ORDERED: CHOLECALCIFEROL 25 MCG (1000 IU) TABLET PO SCH (09:00)
[2020-07-06] MEDS ORDERED: ISOSORBIDE MONONITRATE ER 30 MG TAB.ER.24H PO SCH (09:00)
[2020-07-06] MEDS ORDERED: NON FORMULARY DRUG (Fish Oil/Dha/Epa [Fish Oil 1,200 Mg Fish Oil] 1 EACH Capsule) PO SCH (09:00)
[2020-07-06] MEDS ORDERED: BICALUTAMIDE 50 MG TAB PO SCH (09:00)
[2020-07-06] MEDS ORDERED: MULTIVITAMINS, THERA 1 EACH TAB PO SCH (09:00)
== END 2020-07-05 16:41 | disposition home health service (06) ==
LOC: OR 08:40 → 4SSUR 13:10 → OR 07-05 16:41
PROVIDERS: ATTEND Orthopaedic Surgery Sports Medicine
DX: M17.12 Unilateral primary osteoarthritis, left knee (principal); M25.762 Osteophyte, left knee; I11.9 Hypertensive heart disease without heart failure; E78.2 Mixed hyperlipidemia; H91.90 Unspecified hearing loss, unspecified ear; E03.9 Hypothyroidism, unspecified; Z87.11 Personal history of peptic ulcer disease; Z85.46 Personal history of malignant neoplasm of prostate; Z97.3 Presence of spectacles and contact lenses; J44.9 Chronic obstructive pulmonary disease, unspecified; Z82.49 Family history of ischemic heart disease and other diseases of the circulatory system; Z72.0 Tobacco use; I25.10 Atherosclerotic heart disease of native coronary artery without angina pectoris; Z95.5 Presence of coronary angioplasty implant and graft; Z90.79 Acquired absence of other genital organ(s); D72.829 Elevated white blood cell count, unspecified; K21.9 Gastro-esophageal reflux disease without esophagitis; Z79.890 Hormone replacement therapy; Z79.82 Long term (current) use of aspirin; Z79.899 Other long term (current) drug therapy
CPT/HCPCS: 97110; 97161; 64448; 76942; 80053; 85025; 81003; 88300; 73560; 27447; C1776; C1713; J2250; J1100; J0690 ×3; J2405; J3010; J2370; J2704; J2795

== ENCOUNTER → 2021-09-23 | Outpatient (CLI) | payer MEDICARE, BC ==
--- NOTE | 2021-09-24 04:28 | MR ---
EXAMINATION TYPE: MR huber/lspine wo con DATE OF EXAM: 09/23/2021 COMPARISON: Lumbar spine 02/01/2013 HISTORY: Neck pain, low back pain that radiates down both legs. Multiplanar multiecho imaging of the cervical spine and lumbar spine with no contrast. The cervical vertebra have normal alignment. Disc spaces are fairly normal for age. No compression fr acture. Cervical spinal cord has normal signal pattern. No edema. No spinal stenosis. No cervical dis c herniation. Brainstem is intact. Facet joints are intact. There is no cervical paraspinal mass. IMPRESSION: Negative MRI scan of the cervical spine. Lumbar spine The lumbar vertebrae have normal alignment. No significant disc space narrowing. There are small post erior disc bulging at L2-3 and L4-5. There is some hypertrophic facet arthropathy and mild spinal ana nosis at L4-5. There is some mild lateral recess stenosis at L2-3 due to facet arthropathy. Lumbar ne rve roots appear normal. The lumbar neural foramina are fairly well maintained. No paraspinal mass. N o focal bone destruction. The sacroiliac joints are intact. IMPRESSION: Mild posterior disc bulging as above. There is a mild relative spinal stenosis at L4-5 due to disc bu lging and facet arthropathy. There is mild lateral recess stenosis at L2-3.
== END | disposition home or self-care (01) ==
LOC: RADMRIMAIN 15:20
PROVIDERS: ATTEND Orthopaedic Surgery Orthopaedic Surgery of the Spine
DX: R29.2 Abnormal reflex (principal); M47.12 Other spondylosis with myelopathy, cervical region; M47.816 Spondylosis without myelopathy or radiculopathy, lumbar region; R26.89 Other abnormalities of gait and mobility; M25.78 Osteophyte, vertebrae; M51.17 Intervertebral disc disorders with radiculopathy, lumbosacral region; F17.200 Nicotine dependence, unspecified, uncomplicated; E66.3 Overweight
CPT/HCPCS: 72141; 72148

== ENCOUNTER → 2021-12-15 | Outpatient (CLI) | payer MEDICARE, BC ==
--- NOTE | 2021-12-15 22:14 | MR ---
EXAMINATION TYPE: MR brain wo con DATE OF EXAM: 12/15/2021 COMPARISON: NONE HISTORY: CVA, balance issues. TECHNIQUE: Multiplanar, multisequence imaging of the brain and brainstem is performed without IV cont rast. FINDINGS: Diffusion weighted images demonstrate no evidence of a recent infarct or other diffusion abnormality. There is mild to moderate ventricular and sulcal prominence. Focal and confluent areas of T2 hyperint ensity are seen throughout the white matter bilaterally. Lesions are nonspecific in appearance and di stribution. Midline structures demonstrate normal morphology. The craniocervical junction appears within normal limits. Normal vascular flow voids are present. Moderate mucosal thickening involving ethmoid sinuses bilaterally. Increased fluid signal right greater than left bilateral mastoid air cells. Flattening of the bilateral lens in the bilateral globes suggest prior cataract surgery bilaterally. IMPRESSION: 1. Fairly moderate diffuse cerebral atrophy and moderate chronic small vessel ischemic changes. No MR I evidence for recent infarct. 2. Moderate chronic ethmoid sinus disease. 3. Fluid signal right greater than left mastoid air cells raises concern for bilateral mastoiditis, c orrelate clinically.
== END | disposition home or self-care (01) ==
LOC: RADMRIMAIN 16:21
PROVIDERS: ATTEND Psychiatry & Neurology Neurology
DX: I67.9 Cerebrovascular disease, unspecified (principal)
CPT/HCPCS: 70551

== ENCOUNTER 2022-02-12 09:49 | Day surgery (SDC) | payer MEDICARE, BC ==
[2022-01-28 08:39] VITALS: BMI 31.0
[2022-02-12] MEDS ORDERED: LACTATED RINGERS 1,000 ML IV SCH (10:13)
[2022-02-12] MEDS ORDERED: LIDOCAINE 1% (10MG/ML) FOR IV START INTRADERMA PRN (10:13)
[2022-02-12 10:30] VITALS: RESP 16; TEMP 97.2
[2022-02-12] MEDS ORDERED: IV FLUID CONTINUATION 1,000 ML IV ONE (10:59)
--- NOTE | 2022-02-12 11:02 | P.PCN ---
Date of Procedure: 02/12/22 Procedure(s) Performed: Preoperative diagnosis: Normal pressure hydrocephalus Post operative diagnoses: Normal pressure hydrocephalus Procedure= lumbar puncture Anesthesia= none Condition: stable Complication: none. Description of the procedure procedure risk and benefits discussed with the patient and family, consent signed. Patient and the procedure area placed in lateral position ( right side down ), back prepped with chlorhexidine 3 times been local infiltration of the skin and subcutaneous tissue with lidocaine 1% 2 mL for skin and subcu interstitial frustrations at L4 5 levels then 20 -gauge Quincke-type needle advanced slowly at L4- 5 interlaminar space there was positive cerebrospinal fluid which was clear, no heme, no paresthesia ,total of 31 ML of clear cerebrospinal fluid collected in 4 different tubes 7.5- 8 mL in each, then the needle removed and a Band-Aid applied and patient tolerated the procedure well without any complications. Opening pressure 24 cm of water. Closing pressure after removal of 31 mL of clear cerebrospinal fluid is 9 cm of water
[2022-02-12 11:24] VITALS: BP 118/61; PULSE 68
[2022-02-12 12:28] LABS: Glucose,CSF 60 mg/dL (40-70); Total Protein,CSF 46 mg/dL (12-60)
[2022-02-12 15:00] LABS: Appearance,CSF Clear; CSF Tube Number 4; CSF Tube Volume 7.5; Nucleated Cells, CSF 0 u/L (0-5); Red Blood Cell,CSF 0 u/L (0-10)
== END 2022-02-12 11:46 | disposition home or self-care (01) ==
LOC: ORPAIN 09:49
PROVIDERS: ATTEND Specialist
DX: G91.2 (Idiopathic) normal pressure hydrocephalus (principal)
CPT/HCPCS: 62270; 82945; 84157; 88108; 89050

== ENCOUNTER → 2022-03-24 | Day surgery (SDC) | payer MEDICARE, BC ==
[2022-03-24 08:44] VITALS: TEMP 98.3
[2022-03-24 09:44] VITALS: RESP 18
--- NOTE | 2022-03-24 10:45 | FL ---
PROCEDURE: FL Lumbar puncture for nuclear medicine cisternogram. DATE: 03/24/2022 CLINICAL HISTORY: 81-year-old male G91. Recent lumbar puncture with fluid removed; subsequent improve ment of incontinence and trouble walking that lasted a week. COMPLICATIONS: None SEDATION: Oral Valium administered by nursing. The patient and the patient's vital signs were monitored by balwinder norman independent radiology personnel. TECHNIQUE: The procedure and potential risks were explained to patient and an informed consent was obtained with teach back. Site and side was verified. A time out was performed. The patient was placed prone on the fluoroscopy table and the L3-L4 level was localized and the skin was marked and was prepped and draped in the usual sterile fashion. Lidocaine was used for local anesthesia. Utilizing fluoroscopic guidance a 22-gauge normal spinal nee dle was placed through the skin and into the subarachnoid space. Clear, colorless cerebral spinal fluid was visualized at the needle hub. Subsequently, we attached the syringe with the measured dose of indium-111 DTPA, handed to us by the physicist nuclear. The dose was injected through the needle. The needle was flushed with 1 to 2 mL of 1% lidocaine as it was withdrawn. Syringe, needles, and gloves were handed to the physicist nuclear for appropriate disposa l. The patient tolerated the procedure well and was sent back to recovery room in satisfactory condition . The estimated blood loss was minimal. The patient's condition was unchanged following the procedure. Fluoroscopy time: 10 Total images: 1 IMPRESSION: Successful lumbar puncture at the L3-L4 level and administration of the measured dose of indium-111 D TPA for subsequent nuclear medicine cisternogram.
[2022-03-24 14:48] VITALS: BP 111/63; PULSE 62
== END ==
LOC: RADPROMAIN 07:57
PROVIDERS: ATTEND Psychiatry & Neurology Neurology
DX: G91.8 Other hydrocephalus (principal); G25.81 Restless legs syndrome; J44.9 Chronic obstructive pulmonary disease, unspecified; F17.210 Nicotine dependence, cigarettes, uncomplicated; I25.10 Atherosclerotic heart disease of native coronary artery without angina pectoris; G47.33 Obstructive sleep apnea (adult) (pediatric); Z96.652 Presence of left artificial knee joint; Z90.79 Acquired absence of other genital organ(s); Z98.890 Other specified postprocedural states; Z82.49 Family history of ischemic heart disease and other diseases of the circulatory system; Z83.49 Family history of other endocrine, nutritional and metabolic diseases; Z82.0 Family history of epilepsy and other diseases of the nervous system; Z79.01 Long term (current) use of anticoagulants; Z79.02 Long term (current) use of antithrombotics/antiplatelets; Z79.82 Long term (current) use of aspirin; Z79.890 Hormone replacement therapy; Z79.899 Other long term (current) drug therapy
CPT/HCPCS: 62328; J2001; 78630

== ENCOUNTER → 2022-09-24 | Outpatient (CLI) | payer MEDICARE, BC ==
--- NOTE | 2022-09-24 15:13 | NM ---
EXAMINATION TYPE: NM bone scan whole body DATE OF EXAM: 09/24/2022 COMPARISON: Nuclear medicine bone scan 01/03/2019 CLINICAL INDICATION: Male, 81 years old with history of C61 MALIGNANT NEOPLASM OF PROSTATE; Delayed whole-body scanning was performed following the injection of 23.1 mCi Tc 99m MDP. Images acq uired 3.75 hours post injection. FINDINGS: New abnormal foci of radiotracer uptake identified within the posterior calvarium, left aspect of the sternum, right lateral fifth rib, in the region of the T7 vertebral body, right posterior 10th rib, right aspect of the L2 vertebral body and diffusely throughout the L4 vertebral body. Likely degenera tive changes involving the left right ankle. IMPRESSION: Findings concerning for osseous metastatic disease with new foci of radiotracer uptake id entified within the calvarium, sternum, ribs, and thoracic lumbar spine. Consider further evaluation with CT.
== END | disposition home or self-care (01) ==
LOC: RADNMMAIN 09:28
PROVIDERS: ATTEND Urology
DX: C61 Malignant neoplasm of prostate (principal)
CPT/HCPCS: 78306; A9503

== ENCOUNTER → 2022-11-18 | Outpatient (CLI) | payer MEDICARE, BC ==
--- NOTE | 2022-11-18 17:27 | CT ---
EXAMINATION TYPE: CT brain wo/w con DATE OF EXAM: 11/18/2022 COMPARISON: None INDICATION: ataxia of gait, headaches see previous study DLP: 2559.3 mGycm, Automated exposure control for dose reduction was used. CONTRAST: None CT of the brain is performed utilizing 3 mm thick sections through the posterior fossa and 3 mm thick sections through the remaining calvarium. Study is performed within 24 hours of arrival to the hosp ital. No abnormal hyperdensity is present to suggest an acute intracranial hemorrhage. No mass lesion is evident. There is some prominence of the extra-axial space near the foramen magnum. Arachnoid cyst may be present within this region. No acute infarcts are evident. There is periventricular white matter hypodensity, likely on the basis of chronic white matter ischemic changes. Ventricles and sulci are prominent for the patient age. Because of thickening is within the ethmoid air cells. Frontal and sphenoid sinuses are clear. Maxill haroon sinuses are clear. There is some mild fluid within the inferior mastoid air cells bilaterally. Re maining mastoid air cells appear clear Following contrast, no suspicious enhancement is evident. IMPRESSIONS: 1. Atrophy with chronic appearing periventricular white matter ischemic type changes. 2. No abnormal enhancement. 3. Arachnoid cyst may be present within the inferior posterior fossa and foramen magnum region.
--- NOTE | 2022-11-18 20:21 | CT ---
EXAMINATION TYPE: CT lumbar spine wo/w con DATE OF EXAM: 11/18/2022 COMPARISON: HISTORY: hx of prostate cancer, lumbar pain CT DLP: 3716.9 mGycm CONTRAST: CT scan of the lumbar is performed with IV Contrast, patient injected with mL of Isovue 300. TECHNIQUE: CT of the lumbar spine is performed on a spiral scan at 3 mm thick sections. Reconstructed images are performed in the coronal and sagittal planes. FINDINGS: There is a sclerotic irregular area within the L3 vertebral body. There is sclerosis diffus tamara through the L4 vertebral body. Findings are suggestive for sclerotic metastasis. T12-L1: No focal disc herniation or significant disc bulge is evident. No spinal canal stenosis or neural foraminal stenosis is present. L1-L2: No focal disc herniation or significant disc bulge is evident. No spinal canal stenosis or n eural foraminal stenosis is present L2-L3: Broad-based disc bulge is present with mild anterior thecal sac compression. Ligamentum flavum laxity is present causing some mild spinal canal narrowing. L3-L4: Broad-based disc bulge is present with mild anterior thecal sac flattening. No AP spinal canal stenosis present. L4-L5: Broad-based disc bulge is present with moderate anterior thecal sac compression. Facet hypertr ophy and ligamentum flavum laxity have significant posterior lateral thecal sac compression. Spinal c anal stenosis present. Correlate with patient's symptoms. L5-S1: No focal disc herniation or significant disc bulge is evident. No spinal canal stenosis or n eural foraminal stenosis is present Vertebral alignment appears normal. Joint space phenomenon is present within the sacroiliac joints. IMPRESSION: 1. Disc bulging and ligamentum flavum laxity with significant spinal canal stenosis L4-5 and to a les ser degree L2-3.
== END | disposition home or self-care (01) ==
LOC: RADCTMAIN 12:50
PROVIDERS: ATTEND Psychiatry & Neurology Neurology
DX: M51.36 Other intervertebral disc degeneration, lumbar region (principal); M48.061 Spinal stenosis, lumbar region without neurogenic claudication; I67.82 Cerebral ischemia; G31.9 Degenerative disease of nervous system, unspecified; R26.0 Ataxic gait; R93.7 Abnormal findings on diagnostic imaging of other parts of musculoskeletal system; R90.82 White matter disease, unspecified; Z85.46 Personal history of malignant neoplasm of prostate
CPT/HCPCS: 72133; 70470; Q9967

== ENCOUNTER 2022-12-12 12:40 | Inpatient (IN) | payer MEDICARE, BC ==
--- NOTE | 2022-12-12 13:22 | ED ---
General Adult HPI - General Chief complaint: Weakness Stated complaint: FALL Time Seen by Provider: 12/12/22 12:54 Source: EMS, RN notes reviewed, old records reviewed Mode of arrival: EMS Limitations: no limitations - History of Present Illness Initial comments: 82-year-old male presenting for evaluation of weakness and multiple falls. Patient states he does not specifically recall falling. He does complain of some right hip pain. Patient reports that he fell twice over the past 24 hours. No central chest pain. No fever. No vomiting. No abdominal pain. - Related Data Home Medications Medication Instructions Recorded Confirmed Cholecalciferol [Vitamin D3 (25 2,000 unit PO DAILY 06/25/14 06/08/22 Mcg = 1000 Iu)] Multivit-Min/FA/Lycopen/Lutein 1 tab PO DAILY 11/05/15 06/08/22 [Centrum Silver Tablet] amLODIPine [Norvasc] 5 mg PO HS 11/05/15 06/08/22 Aspirin [Adult Low Dose Aspirin EC] 81 mg PO DAILY 08/27/16 06/08/22 Losartan [Cozaar] 50 mg PO QAM 09/22/17 06/08/22 Omeprazole [PriLOSEC] 20 mg PO QAM 09/22/17 06/08/22 Albuterol Inhaler [Ventolin Hfa 2 puff INHALATION DIRECTED PRN 09/04/19 06/08/22 Inhaler] Atorvastatin [Lipitor] 40 mg PO HS 09/04/19 06/08/22 Fish Oil/Dha/Epa [Fish Oil 1,200 1 each PO DAILY 09/04/19 06/08/22 mg Fish Oil] Levothyroxine Sodium [Levoxyl] 150 mcg PO QAM 09/04/19 06/08/22 Isosorbide Mononitrate ER [Imdur] 30 mg PO QAM 06/28/20 06/08/22 Acetaminophen [Tylenol Extra 500 - 1,000 mg PO Q6H PRN 07/03/20 06/08/22 Strength] Fluticasone Nasal [place] [Flonase 1 spray EA NOSTRIL DAILY PRN 01/28/22 06/08/22 Nasal [place]] Bicalutamide [Casodex] 50 mg PO DAILY 03/24/22 06/08/22 Pramipexole [Mirapex] 1 mg PO DAILY 03/24/22 06/08/22 Vit C/E/Zn/Coppr/Lutein/Zeaxan 1 each PO DAILY 03/24/22 06/08/22 [Preservision Areds 2 Softgel] Previous Rx's Medication Instructions Recorded Nitroglycerin Sl Tabs [Nitrostat] 0.4 mg SUBLINGUAL Q5M PRN #25 tab 09/30/17 Allergies Allergy/AdvReac Type Severity Reaction Status Date / Time venom-honey bee Allergy Severe Swelling Verified 06/08/22 10:05 [bee venom (honey bee)] latex Allergy Rash/Hives Verified 06/08/22 10:05 Review of Systems ROS Statement: Those systems with pertinent positive or pertinent negative responses have been documented in the HPI. ROS Other: All systems not noted in ROS Statement are negative. Past Medical History Past Medical History: Coronary Artery Disease (CAD), Cancer, GERD/Reflux, GI Bleed, Hyperlipidemia, Hypertension, Prostate Disorder, Sleep Apnea/CPAP/BIPAP, Thyroid Disorder Additional Past Medical History / Comment(s): PROSTATE CANCER ([place]URGERY & RADIATION [place] (2011) , hiatal hernia, constipation, hx ulcer yrs ago, INCONT INENT URINE-USES EXTERNAL MALE CATHETER, occasional dizziness."spinal tap done feb 12 2022 & MRI "water on the brain"-following with Dr Parkinson and specialist- ringing carolyn ear History of Any Multi-Drug Resistant Organisms: None Reported Past Surgical History: Heart Catheterization With Stent, Hernia Repair, Prostate Surgery, Tonsillectomy Additional Past Surgical History / Comment(s): colonoscopy, surgery for artificial urethral sphincter inserted and removed., carpal tunnel-left, nasal surgery. Past Anesthesia/Blood Transfusion Reactions: No Reported Reaction Date of Last Stent Placement:: 2001 Past Psychological History: No Psychological Hx Reported Smoking Status: Former smoker Past Alcohol Use History: None Reported Past Drug Use History: None Reported - Past Family History Sister(s) Family Medical History: Cancer Brother(s) Family Medical History: Cancer, CVA/TIA General Exam Limitations: no limitations General appearance: alert, in no apparent distress Head exam: Present: atraumatic, normocephalic Eye exam: Present: normal appearance, PERRL ENT exam: Present: normal exam Neck exam: Present: normal inspection. Absent: tenderness, meningismus Respiratory exam: Present: normal lung sounds bilaterally. Absent: respiratory distress, wheezes Cardiovascular Exam: Present: regular rate, normal rhythm GI/Abdominal exam: Present: soft. Absent: distended, tenderness, guarding Extremities exam: Present: normal inspection, normal capillary refill Neurological exam: Present: alert, oriented X3, CN II-XII intact. Absent: motor sensory deficit Psychiatric exam: Present: normal affect, normal mood Skin exam: Present: warm, dry Course Vital Signs 12/12/22 12:44 Temperature 97.7 F Pulse Rate 66 Respiratory 18 Rate Blood Pressure 138/92 O2 Sat by Pulse 95 Oximetry Medical Decision Making - Medical Decision Making Was pt. sent in by a medical professional or institution (, PA, MOBILE APPLICATION TESTER, urgent care, hospital, or penitentiary...) When possible be specific @ -No Did you speak to anyone other than the patient for history (EMS, parent, family, police, friend...)? What history was obtained from this source @ -No Did you review nursing and triage notes (agree or disagree)? Why? @ -I reviewed and agree with nursing and triage notes Were old charts reviewed (outside hosp., previous admission, EMS record, old EKG, old radiological studies, urgent care reports/EKG's, penitentiary records)? Report findings @ -No old charts were reviewed Differential Diagnosis (chest pain, altered mental status, abdominal pain women, abdominal pain men, vaginal bleeding, weakness, fever, dyspnea, syncope, headache, dizziness, GI bleed, back pain, seizure, CVA, palpatations, mental health, musculoskeletal)? @ -not applicable EKG interpreted by me (3pts min.). @ Sinus bradycardia rate of 59, QRS duration 135, QTC 400, QRS duration is 89, no ST segment elevation. X-rays interpreted by me (1pt min.). @ X-ray of the pelvis and right hip negative for acute bony abnormality, chest x-ray concerning for pneumonia CT interpreted by me (1pt min.). @ CT brain negative for intracranial hemorrhage or mass effect U/S interpreted by me (1pt. min.). @ -None done What testing was considered but not performed or refused? (CT, X-rays, U/S, labs)? Why? @ -None What meds were considered but not given or refused? Why? @ -None Did you discuss the management of the patient with other professionals (professionals i.e. , BEKA, MOBILE APPLICATION TESTER, lab, RT, psych nurse, social service assistant, prepress operator, teacher, chief medical officer, shoe parts caser)? Give summary @ -Dr. Tavera Was smoking cessation discussed for >3mins.? @ -No Was critical care preformed (if so, how long)? @ -No Were there social determinants of health that impacted care today? How? (Homelessness, low income, unemployed, alcoholism, drug addiction, transportation, low edu. Level, literacy, decrease access to med. care, half-way, rehab)? @ -No Was there de-escalation of care discussed even if they declined (Discuss DNR or withdrawal of care, Hospice)? DNR status @ -No What co-morbidities impacted this encounter? (DM, HTN, Smoking, COPD, CAD, Cancer, CVA, ARF, Chemo, Hep., AIDS, mental health diagnosis, sleep apnea, morbid obesity)? @Hypertension, coronary artery disease Was patient admitted / discharged? Hospital course, mention meds given and route, prescriptions, significant lab abnormalities, going to OR and other pertinent info. @82-year-old male with generalized weakness, multiple falls. Patient denies central chest pain. Denies abdominal pain or fever. He apparently had fallen and was found for an unknown amount of time. He does have a mildly elevated CK at 354. He has a normal white blood cell count, stable hemoglobin, CT brain is negative for intracranial hemorrhage or mass effect. Chest x-ray concerning for possible infiltrate, x-ray of the hip negative for fracture dislocation. Beka serna will be admitted for antibiotics to treat both pneumonia and urinary tract infection. Be placed on IV fluid. Undiagnosed new problem with uncertain prognosis? @ -No Drug Therapy requiring intensive monitoring for toxicity (Heparin, Nitro, Insulin, Cardizem)? @ -No Were any procedures done? @ -No Diagnosis/symptom? @ -Pneumonia, UTI, dehydration Acute, or Chronic, or Acute on Chronic? @Acute Uncomplicated (without systemic symptoms) or Complicated (systemic symptoms)? @ -default Side effects of treatment? @ -No Exacerbation, Progression, or Severe Exacerbation? @ -No Poses a threat to life or bodily function? How? (Chest pain, [place], NH, pneumonia, PE, COPD, DKA, ARF, appy, cholecystitis, CVA, Diverticulitis, Homicidal, Suicidal, threat to staff... and all critical care pts) @ -[Yes, sepsis - Lab Data Result diagrams: 12/12/22 13:10 12/12/22 13:10 Lab Results 12/12/22 12/12/22 12/12/22 Range/Units 13:10 13:10 13:10 WBC 6.9 (3.8-10.6) k/uL RBC 3.94 L (4.30-5.90) m/uL Hgb 13.9 (13.0-17.5) gm/dL Hct 40.5 (39.0-53.0) % MCV 102.7 H (80.0-100.0) fL MCH 35.3 H (25.0-35.0) pg MCHC 34.3 (31.0-37.0) g/dL RDW 12.7 (11.5-15.5) % Plt Count 198 (150-450) k/uL MPV 7.7 Neutrophils % 59 % Lymphocytes % 25 % Monocytes % 8 % Eosinophils % 5 % Basophils % 0 % Neutrophils # 4.1 (1.3-7.7) k/uL Lymphocytes # 1.7 (1.0-4.8) k/uL Monocytes # 0.6 (0-1.0) k/uL Eosinophils # 0.4 (0-0.7) k/uL Basophils # 0.0 (0-0.2) k/uL Macrocytosis Slight PT 9.8 (9.0-12.0) sec INR 0.9 (<1.2) APTT 22.1 (22.0-30.0) sec Sodium (137-145) mmol/L Potassium (3.5-5.1) mmol/L Chloride (98-107) mmol/L Carbon Dioxide (22-30) mmol/L Anion Gap mmol/L BUN (9-20) mg/dL Creatinine (0.66-1.25) mg/dL Est GFR (CKD-EPI)AfAm (>60 ml/min/1.73 sqM) Est GFR (CKD-EPI)NonAf (>60 ml/min/1.73 sqM) Glucose (74-99) mg/dL Plasma Lactic Acid Terell (0.7-2.0) mmol/L Calcium (8.4-10.2) mg/dL Magnesium (1.6-2.3) mg/dL Total Bilirubin (0.2-1.3) mg/dL AST (17-59) U/L ALT (4-49) U/L Alkaline Phosphatase (38-126) U/L Creatine Kinase (55-170) U/L Troponin I (0.000-0.034) ng/mL Total Protein (6.3-8.2) g/dL Albumin (3.5-5.0) g/dL Urine Color Yellow Urine Appearance Clear (Clear) Urine pH 5.5 (5.0-8.0) Ur Specific [place] 1.025 (1.001-1.035) Urine Protein Trace H (Negative) Urine Glucose (UA) Negative (Negative) Urine Ketones Negative (Negative) Urine Blood Trace H (Negative) Urine Nitrite Negative (Negative) Urine Bilirubin Negative (Negative) Urine Urobilinogen <2.0 (<2.0) mg/dL Ur Leukocyte Esterase Large H (Negative) Urine RBC 3 (0-5) /hpf Urine WBC 88 H (0-5) /hpf Ur Squamous Epith Cells 2 (0-4) /hpf Urine Bacteria Rare H (None) /hpf Urine Mucus Occasional H (None) /hpf 12/12/22 12/12/22 12/12/22 Range/Units 13:10 13:10 13:10 WBC (3.8-10.6) k/uL RBC (4.30-5.90) m/uL Hgb (13.0-17.5) gm/dL Hct (39.0-53.0) % MCV (80.0-100.0) fL MCH (25.0-35.0) pg MCHC (31.0-37.0) g/dL RDW (11.5-15.5) % Plt Count (150-450) k/uL MPV Neutrophils % % Lymphocytes % % Monocytes % % Eosinophils % % Basophils % % Neutrophils # (1.3-7.7) k/uL Lymphocytes # (1.0-4.8) k/uL Monocytes # (0-1.0) k/uL Eosinophils # (0-0.7) k/uL Basophils # (0-0.2) k/uL Macrocytosis PT (9.0-12.0) sec INR (<1.2) APTT (22.0-30.0) sec Sodium 137 (137-145) mmol/L Potassium 3.9 (3.5-5.1) mmol/L Chloride 105 (98-107) mmol/L Carbon Dioxide 23 (22-30) mmol/L Anion Gap 9 mmol/L BUN 25 H (9-20) mg/dL Creatinine 0.99 (0.66-1.25) mg/dL Est GFR (CKD-EPI)AfAm 81 (>60 ml/min/1.73 sqM) Est GFR (CKD-EPI)NonAf 70 (>60 ml/min/1.73 sqM) Glucose 117 H (74-99) mg/dL Plasma Lactic Acid Terell 1.8 (0.7-2.0) mmol/L Calcium 8.9 (8.4-10.2) mg/dL Magnesium 1.9 (1.6-2.3) mg/dL Total Bilirubin 0.8 (0.2-1.3) mg/dL AST 34 (17-59) U/L ALT 20 (4-49) U/L Alkaline Phosphatase 50 (38-126) U/L Creatine Kinase (55-170) U/L Troponin I <0.012 (0.000-0.034) ng/mL Total Protein 6.6 (6.3-8.2) g/dL Albumin 4.0 (3.5-5.0) g/dL Urine Color Urine Appearance (Clear) Urine pH (5.0-8.0) Ur Specific [place] (1.001-1.035) Urine Protein (Negative) Urine Glucose (UA) (Negative) Urine Ketones (Negative) Urine Blood (Negative) Urine Nitrite (Negative) Urine Bilirubin (Negative) Urine Urobilinogen (<2.0) mg/dL Ur Leukocyte Esterase (Negative) Urine RBC (0-5) /hpf Urine WBC (0-5) /hpf Ur Squamous Epith Cells (0-4) /hpf Urine Bacteria (None) /hpf Urine Mucus (None) /hpf 12/12/22 Range/Units 13:10 WBC (3.8-10.6) k/uL RBC (4.30-5.90) m/uL Hgb (13.0-17.5) gm/dL Hct (39.0-53.0) % MCV (80.0-100.0) fL MCH (25.0-35.0) pg MCHC (31.0-37.0) g/dL RDW (11.5-15.5) % Plt Count (150-450) k/uL MPV Neutrophils % % Lymphocytes % % Monocytes % % Eosinophils % % Basophils % % Neutrophils # (1.3-7.7) k/uL Lymphocytes # (1.0-4.8) k/uL Monocytes # (0-1.0) k/uL Eosinophils # (0-0.7) k/uL Basophils # (0-0.2) k/uL Macrocytosis PT (9.0-12.0) sec INR (<1.2) APTT (22.0-30.0) sec Sodium (137-145) mmol/L Potassium (3.5-5.1) mmol/L Chloride (98-107) mmol/L Carbon Dioxide (22-30) mmol/L Anion Gap mmol/L BUN (9-20) mg/dL Creatinine (0.66-1.25) mg/dL Est GFR (CKD-EPI)AfAm (>60 ml/min/1.73 sqM) Est GFR (CKD-EPI)NonAf (>60 ml/min/1.73 sqM) Glucose (74-99) mg/dL Plasma Lactic Acid Terell (0.7-2.0) mmol/L Calcium (8.4-10.2) mg/dL Magnesium (1.6-2.3) mg/dL Total Bilirubin (0.2-1.3) mg/dL AST (17-59) U/L ALT (4-49) U/L Alkaline Phosphatase (38-126) U/L Creatine Kinase 354 H (55-170) U/L Troponin I (0.000-0.034) ng/mL Total Protein (6.3-8.2) g/dL Albumin (3.5-5.0) g/dL Urine Color Urine Appearance (Clear) Urine pH (5.0-8.0) Ur Specific [place] (1.001-1.035) Urine Protein (Negative) Urine Glucose (UA) (Negative) Urine Ketones (Negative) Urine Blood (Negative) Urine Nitrite (Negative) Urine Bilirubin (Negative) Urine Urobilinogen (<2.0) mg/dL Ur Leukocyte Esterase (Negative) Urine RBC (0-5) /hpf Urine WBC (0-5) /hpf Ur Squamous Epith Cells (0-4) /hpf Urine Bacteria (None) /hpf Urine Mucus (None) /hpf Disposition Clinical Impression: Dehydration, Pneumonia, UTI (urinary tract infection) Disposition: ADMITTED IP TO THIS HOSP Condition: Stable Is patient prescribed a controlled substance at d/c from ED?: No Referrals: Rima Godoy MD [Primary Care Provider] - 1-2 days Time of Disposition: 15:24
[2022-12-12 13:29] LABS: Basophils % (A) 0 %; Eosinophils # (A) 0.4 k/uL (0-0.7); Eosinophils % (A) 5 %; HCT 40.5 % (39.0-53.0); HGB 13.9 gm/dL (13.0-17.5); Lymphocytes # (A) 1.7 k/uL (1.0-4.8); Lymphocytes % (A) 25 %; MCH 35.3 pg (25.0-35.0); MCHC 34.3 g/dL (31.0-37.0); MCV 102.7 fL (80.0-100.0); Macrocytosis Slight; Mean Platelet Volume 7.7; Monocytes # (A) 0.6 k/uL (0-1.0); Monocytes % (A) 8 %; Neutrophils # (A) 4.1 k/uL (1.3-7.7); Neutrophils % (A) 59 %; Platelet Count 198 k/uL (150-450); RBC 3.94 m/uL (4.30-5.90); RDW 12.7 % (11.5-15.5); WBC 6.9 k/uL (3.8-10.6)
[2022-12-12 13:33] LABS: INR 0.9 (<1.2); Partial Thromboplastin Time 22.1 sec (22.0-30.0); Prothrombin Time 9.8 sec (9.0-12.0)
--- NOTE | 2022-12-12 13:37 | CT ---
EXAMINATION TYPE: CT brain wo con CT DLP: 1099 a mGycm, Automated exposure control for dose reduction was used. DATE OF EXAM: 12/12/2022 1:28 PM COMPARISON: 12/06/2022. CLINICAL INDICATION:Male, 82 years old with history of weakness, TECHNIQUE: Brain: Axial CT images of the brain were obtained with coronal and sagittal reformats created and rev iewed. Contrast used: None. Oral contrast used: None. FINDINGS: Brain: Extra-axial spaces: No abnormal extra-axial fluid collections. Ventricular system: Dilatation in proportion to cerebral atrophy. Cerebral parenchyma: Cerebral atrophy. No acute intraparenchymal hemorrhage or mass effect. The waller -white junction is well differentiated is seen. Scattered hypoattenuating areas are seen within the w dionte matter. Cerebellum: Unremarkable. Mass effect: No evidence of midline shift. Intracranial vasculature: unremarkable Soft tissues: Normal. Calvarium/osseous structures: No depressed skull fracture. Paranasal sinuses and mastoid air cells: Mild scattered paranasal sinus disease. Visualized orbits: Bilateral aphakia IMPRESSION: 1. No acute intracranial process. 2. Nonspecific white matter changes, likely secondary to chronic small vessel ischemic disease.
--- NOTE | 2022-12-12 13:38 | XR ---
EXAMINATION TYPE: XR chest 2V DATE OF EXAM: 12/12/2022 1:35 PM COMPARISON: Chest radiographs from 08/11/2011. TECHNIQUE: XR chest 2V Frontal and lateral views of the chest. CLINICAL INDICATION:Male, 82 years old with history of Weakness; FINDINGS: Lungs/Pleura: There is flattening of the diaphragm with increased lucency of the lungs. No evidence o f pneumothorax, pleural effusion or focal consolidation. Pulmonary vascularity: Unremarkable. Heart/mediastinum: Cardiomediastinal silhouette is unremarkable. Musculoskeletal: No acute osseous pathology. IMPRESSION: 1. Right lower lung airspace opacities correlate for pneumonia. 2. COPD changes.
--- NOTE | 2022-12-12 13:46 | XR ---
EXAMINATION TYPE: XR Hip RT and AP Pelvis DATE OF EXAM: 12/12/2022 1:35 PM INDICATION: Patient age:Male; 82 years old; Reason for study: fall; PHH. COMPARISON: None. TECHNIQUE: The right hip was examined in the frontal and lateral projections and a AP pelvis. FINDINGS: No evidence for acute process, joint dislocation or significant soft tissue swelling. Osteo phyte formation of the superior acetabulum of the hips with mild joint space narrowing.. Multiple reagan gical clips project over the pelvis. IMPRESSION: 1. No evidence for acute process. 2. Mild bilateral hip osteoarthrosis.
[2022-12-12 13:50] LABS: ALT 20 U/L (4-49); AST 34 U/L (17-59); African American GFR (CKD) 81 (>60 ml/min/1.73 sqM); Alkaline Phosphatase 50 U/L (38-126); Anion Gap 9 mmol/L; Blood Urea Nitrogen 25 mg/dL (9-20); Calcium 8.9 mg/dL (8.4-10.2); Carbon Dioxide 23 mmol/L (22-30); Chloride 105 mmol/L (98-107); Glucose 117 mg/dL (74-99); Magnesium 1.9 mg/dL (1.6-2.3); Non-African American GFR(CKD) 70 (>60 ml/min/1.73 sqM); Potassium 3.9 mmol/L (3.5-5.1); Sodium 137 mmol/L (137-145); Total Bilirubin 0.8 mg/dL (0.2-1.3); Total Protein 6.6 g/dL (6.3-8.2)
[2022-12-12 15:05] LABS: Appearance,Urine Clear (Clear); Bacteria,Urine Rare /hpf; Bilirubin,Urine Negative (Negative); Blood,Urine Trace (Negative); Color,Urine Yellow; Glucose,Urine (UA) Negative (Negative); Ketones,Urine Negative (Negative); Leukocyte Esterase,Urine Large (Negative); Mucus,Urine Occasional /hpf; Nitrite,Urine Negative (Negative); PH, Urine 5.5 (5.0-8.0); Protein,Urine Trace (Negative); RBC,Urine 3 /hpf (0-5); Specific Gravity,Urine 1.025 (1.001-1.035); Squamous Epithelial Cell,Urine 2 /hpf (0-4); Urobilinogen,Urine <2.0 mg/dL (<2.0); WBC,Urine 88 /hpf (0-5)
[2022-12-12] MEDS ORDERED: AZITHROMYCIN 500 MG in SODIUM CHLORIDE 0.9% 250 ML IVPB STA (15:20)
[2022-12-12] MEDS ORDERED: SODIUM CHLORIDE 0.9% 500 ML 500 ML IV ONE (15:21)
[2022-12-12] MEDS ORDERED: NALOXONE 0.4 MG/ML 1 ML VIAL IV PRN (15:24)
[2022-12-12] MEDS: SODIUM CHLORIDE 0.9% 1,000 ML IV SCH (16:33)
[2022-12-12] MEDS ORDERED: NITROGLYCERIN SL TABS 0.4 MG TAB SUBLINGUAL PRN (19:23)
[2022-12-12] MEDS ORDERED: ALBUTEROL NEBULIZED 2.5 MG/3 ML INHALATION PRN (19:23)
[2022-12-12] MEDS: ACETAMINOPHEN TAB 325 MG TAB PO PRN (20:03)
[2022-12-12] MEDS: PRAMIPEXOLE 1 MG TAB PO SCH (20:04)
[2022-12-13] MEDS: PANTOPRAZOLE 40 MG TABLET PO SCH (06:34)
[2022-12-13] MEDS: LEVOTHYROXINE 75 MCG TAB PO SCH (06:34)
[2022-12-13] MEDS: SODIUM CHLORIDE 0.9% 1,000 ML IV SCH ×2 (06:34→22:10)
[2022-12-13] MEDS: MULTIVITAMINS, THERA 1 EACH TAB PO SCH (08:02)
[2022-12-13] MEDS: ASPIRIN 81 MG PO SCH (08:02)
[2022-12-13] MEDS: CHOLECALCIFEROL 25 MCG (1000 IU) TABLET PO SCH (08:02)
[2022-12-13] MEDS: GABAPENTIN 300 MG CAP PO SCH (08:02)
[2022-12-13] MEDS: amLODIPine 5 MG TAB PO SCH (08:02)
[2022-12-13] MEDS: LORazepam 0.5 MG TAB PO SCH (08:02)
[2022-12-13] MEDS: ISOSORBIDE MONONITRATE ER 30 MG TAB.ER.24H PO SCH (08:02)
[2022-12-13] MEDS: ATORVASTATIN 40 MG TAB PO SCH (08:02)
[2022-12-13] MEDS: LOSARTAN 50 MG TAB PO SCH (08:02)
[2022-12-13] MEDS: MEGESTROL 40 MG TAB PO SCH (08:03)
[2022-12-13] MEDS: VIT A,C & E-LUTEIN-MINERALS 1 EACH TAB PO SCH (08:05)
[2022-12-13] MEDS ORDERED: NON FORMULARY DRUG (Fish Oil/Dha/Epa [Fish Oil 1,200 Mg Fish Oil] 1 EACH Capsule) PO SCH (09:00)
[2022-12-13 10:04] LABS: Basophils % (A) 0 %; Eosinophils # (A) 0.3 k/uL (0-0.7); Eosinophils % (A) 5 %; HCT 39.6 % (39.0-53.0); HGB 13.7 gm/dL (13.0-17.5); Lymphocytes # (A) 1.6 k/uL (1.0-4.8); Lymphocytes % (A) 25 %; MCH 35.6 pg (25.0-35.0); MCHC 34.5 g/dL (31.0-37.0); Macrocytosis Slight; Monocytes # (A) 0.4 k/uL (0-1.0); Monocytes % (A) 6 %; Neutrophils % (A) 62 %; Platelet Count 186 k/uL (150-450); RBC 3.85 m/uL (4.30-5.90); RDW 12.5 % (11.5-15.5); WBC 6.4 k/uL (3.8-10.6)
--- NOTE | 2022-12-13 10:09 | P.HPIM ---
History of Present Illness H&P Date: 12/13/22 Chief Complaint: Generalized weakness UTI and pneumonia This is an 82-year-old male patient of Dr. Godoy who presents with complaints of increased weakness and falls over the past month. Patient reports he's had just generalized weakness causing him to lose his balance increasing over the past few weeks. Patient has past medical history of coronary artery disease, GERD, GI bleed, hyperlipidemia, hypertension, prostate disorder, thyroid disorder, previous heart cath with stents and ex-smoker. Head CT completed showing no acute intracranial process. Nonspecific white matter changes likely secondary to chronic small vessel ischemic disease. Chest x-ray completed s howing right lower lung airspace opacities correlate for pneumonia COPD changes. Hip x-ray completed showing no evidence for acute process mild bilateral hip osteoarthritis. UA positive for urinary tract infection. Vital signs temp 97.5, heart rate 65, respiratory rate 18, blood pressure 146/75 pulse ox 97% on room air. At this time patient will be admitted patient started on IV antibiotics Rocephin and azithromycin. Pulmonary and infectious disease service is consulted PT OT services consulted repeat chest x-ray ordered for a.m. Review of Systems please refer to HPI otherwise unremarkable Past Medical History Past Medical History: Coronary Artery Disease (CAD), Cancer, GERD/Reflux, GI Bleed, Hyperlipidemia, Hypertension, Prostate Disorder, Sleep Apnea/CPAP/BIPAP, Thyroid Disorder Additional Past Medical History / Comment(s): PROSTATE CANCER ([place]URGERY & RADIATION [place] (2011) , hiatal hernia, constipation, hx ulcer yrs ago, INCONTINENT URINE-USES EXTERNAL MALE CATHETER, occasional dizziness."spinal tap done feb 12 2022 & MRI "water on the brain"-following with Dr Parkinson and specialist-ringing carolyn ear History of Any Multi-Drug Resistant Organisms: None Reported Past Surgical History: Heart Catheterization With Stent, Hernia Repair, Prostate Surgery, Tonsillectomy Additional Past Surgical History / Comment(s): colonoscopy, surgery for artificial urethral sphincter inserted and removed., carpal tunnel-left, nasal surgery. Past Anesthesia/Blood Transfusion Reactions: No Reported Reaction Date of Last Stent Placement:: 2001 Past Psychological History: No Psychological Hx Reported Smoking Status: Former smoker Past Alcohol Use History: None Reported Past Drug Use History: None Reported - Past Family History Sister(s) Family Medical History: Cancer Brother(s) Family Medical History: Cancer, CVA/TIA Medications and Allergies Home Medications Medication Instructions Recorded Confirmed Type Multivit-Min/FA/Lycopen/Lutein 1 tab PO DAILY 11/05/15 12/12/22 History [Centrum Silver Tablet] amLODIPine [Norvasc] 5 mg PO DAILY 11/05/15 12/12/22 History Aspirin [Adult Low Dose Aspirin EC] 81 mg PO DAILY 08/27/16 12/12/22 History Losartan [Cozaar] 50 mg PO DAILY 09/22/17 12/12/22 History Omeprazole [PriLOSEC] 20 mg PO DAILY 09/22/17 12/12/22 History Nitroglycerin Sl Tabs [Nitrostat] 0.4 mg SUBLINGUAL Q5M PRN #25 tab 09/30/17 12/12/22 Rx Albuterol Inhaler [Ventolin Hfa 2 puff INHALATION RT-Q6H PRN 09/04/19 12/12/22 History Inhaler] Atorvastatin [Lipitor] 40 mg PO DAILY 09/04/19 12/12/22 History Fish Oil/Dha/Epa [Fish Oil 1,200 1 cap PO DAILY 09/04/19 12/12/22 History mg Fish Oil] Levothyroxine Sodium [Levoxyl] 150 mcg PO DAILY 09/04/19 12/12/22 History Isosorbide Mononitrate ER [Imdur] 30 mg PO DAILY 06/28/20 12/12/22 History Acetaminophen [Tylenol Extra 500 - 1,000 mg PO Q6H PRN 07/03/20 12/12/22 History Strength] Bicalutamide [Casodex] 50 mg PO DIRECTED 03/24/22 12/12/22 History Pramipexole [Mirapex] 1 mg PO DIRECTED 03/24/22 12/12/22 History Vit C/E/Zn/Coppr/Lutein/Zeaxan 2 cap PO DAILY 03/24/22 12/12/22 History [Preservision Areds 2 Softgel] Cholecalciferol [Vitamin D3 (25 50 mcg PO DAILY 12/12/22 12/12/22 History Mcg = 1000 Iu)] Enzalutamide [Xtandi] 40 mg PO DIRECTED 12/12/22 12/12/22 History Gabapentin 300 mg PO DAILY 12/12/22 12/12/22 History LORazepam [Ativan] 0.5 mg PO DAILY 12/12/22 12/12/22 History Megestrol Acetate 20 mg PO DAILY 12/12/22 12/12/22 History Allergies Allergy/AdvReac Type Severity Reaction Status Date / Time venom-honey bee Allergy Severe Swelling Verified 12/12/22 16:02 [bee venom (honey bee)] latex Allergy Rash/Hives Verified 12/12/22 16:02 Physical Exam Vitals: Vital Signs Temp Pulse Pulse Resp BP BP Pulse Ox 12/13/22 07:47 97.5 F L 65 18 193/94 96 12/13/22 00:50 98.2 F 63 16 164/82 96 12/12/22 20:13 97.4 F L 65 16 146/75 97 12/12/22 17:27 97.9 F 70 18 122/78 95 12/12/22 16:00 58 L 19 128/80 95 12/12/22 15:00 55 L 18 105/89 95 12/12/22 12:44 97.7 F 66 18 138/92 95 Intake and Output 12/12/22 12/13/22 12/13/22 22:59 06:59 14:59 Other: Voiding Method External Catheter Incontinent External Catheter # Voids 2 Weight 95.254 kg Head normocephalic Neck supple Lungs clear to auscultation bilaterally no wheezing or crackles Heart regular rate and rhythm S1-S2, no rub or gallop Abdomen is soft nontender nondistended positive bowel sounds no hepatosplenomegaly Extremities no edema Neuro alert and orientated to 3 Results CBC & Chem 7: 12/12/22 13:10 12/12/22 13:10 Labs: Abnormal Lab Results - Last 24 Hours (Table) 12/12/22 12/12/22 12/12/22 Range/Units 13:10 13:10 13:10 RBC 3.94 L (4.30-5.90) m/uL MCV 102.7 H (80.0-100.0) fL MCH 35.3 H (25.0-35.0) pg BUN 25 H (9-20) mg/dL Glucose 117 H (74-99) mg/dL Creatine Kinase (55-170) U/L Urine Protein Trace H (Negative) Urine Blood Trace H (Negative) Ur Leukocyte Esterase Large H (Negative) Urine WBC 88 H (0-5) /hpf Urine Bacteria Rare H (None) /hpf Urine Mucus Occasional H (None) /hpf 12/12/22 Range/Units 13:10 RBC (4.30-5.90) m/uL MCV (80.0-100.0) fL MCH (25.0-35.0) pg BUN (9-20) mg/dL Glucose (74-99) mg/dL Creatine Kinase 354 H (55-170) U/L Urine Protein (Negative) Urine Blood (Negative) Ur Leukocyte Esterase (Negative) Urine WBC (0-5) /hpf Urine Bacteria (None) /hpf Urine Mucus (None) /hpf Thrombosis Risk Factor Assmnt - Choose All That Apply Each Factor Represents 1 point: Abnormal pulmonary function (COPD), Obesity (BMI >25) Each Risk Factor Represents 3 Points: Age 75 years or older Thrombosis Risk Factor Assessment Total Risk Factor Score: 5 Thrombosis Risk Factor Assessment Level: High Risk Assessment and Plan Assessment: 1. Generalized weakness secondary to UTI pneumonia 2. Urinary tract infection. Urine culture ordered 3. Pneumonia. Repeat 2 view chest x-ray ordered. procalcitonin level ordered patient started on IV antibiotics 4. History of coronary artery disease with previous stent placement 5. History of hyperlipidemia 6. History of essential hypertension 7. History of prostate cancer 8. Ex-smoker DVT prophylaxis Lovenox. GI prophylaxis Protonix Infectious disease and pulmonary services consulted Patient started on IV antibiotics Repeat 2 view chest x-ray ordered Urine culture ordered Repeat labs ordered Time with Patient: Greater than 30 (Greater than 60% of the total time spent in counseling and coordination of care)
[2022-12-13 10:14] LABS: ALT 20 U/L (4-49); AST 32 U/L (17-59); African American GFR (CKD) 85 (>60 ml/min/1.73 sqM); Albumin 3.8 g/dL (3.5-5.0); Albumin/Globulin Ratio 1.4; Alkaline Phosphatase 49 U/L (38-126); Anion Gap 9 mmol/L; Blood Urea Nitrogen 18 mg/dL (9-20); Calcium 9.1 mg/dL (8.4-10.2); Carbon Dioxide 25 mmol/L (22-30); Chloride 103 mmol/L (98-107); Globulin 2.7 g/dL; Glucose 104 mg/dL (74-99); Non-African American GFR(CKD) 74 (>60 ml/min/1.73 sqM); Potassium 3.8 mmol/L (3.5-5.1); Sodium 137 mmol/L (137-145); Total Bilirubin 0.7 mg/dL (0.2-1.3); Total Protein 6.5 g/dL (6.3-8.2)
--- NOTE | 2022-12-13 11:13 | XR ---
EXAMINATION TYPE: XR chest 2V DATE OF EXAM: 12/13/2022 COMPARISON: 12/12/2022 HISTORY: Shortness of breath TECHNIQUE: Frontal and lateral views of the chest are obtained. FINDINGS: Scattered senescent parenchymal changes noted. Hyperinflation compatible with COPD. No evidence for infiltrate. No evidence for atelectasis. Heart size is stable. Mediastinal structures are stable and grossly unremarkable. No evidence for hilar prominence. Degenerative changes dorsal spine. IMPRESSION: 1. No evidence for acute pulmonary disease.
--- NOTE | 2022-12-13 12:18 | P.CNPUL ---
History of Present Illness Consult date: 12/13/22 Reason for consult: COPD History of present illness: 82-year-old male patient, lives in an assisted living, presented with generalized weakness of several weeks' duration. He was also having frequent falls. There was concern for pneumonia and for that reason pulmonary consultation was requested. The chest x-ray that was done in emergency showed a questionable right lower lobe airspace disease. There is also suspected UTI and the patient was started on a combination of Rocephin and Zithromax. The patient is currently on room air oxygen with a pulse ox of 97%. Hemodynamically stable. No significant cough or sputum production. No chest pain. No hemoptysis or pleurisy. CAT scan of the head showed no acute intracranial process that showed some chronic nonspecific white matter ischemic changes. He is known to have COPD, hypertension, hyperlipidemia, sleep apnea and previous history of prostate cancer treated by surgery and radiation. He has chronic urinary incontinence. No leukocytosis. No hypoxemia. Renal function stable with a BUN of 18 and a creatinine of 0.9. LFTs are normal. He does have some mild elevation of CPK related to fall. Review of Systems Constitutional: Reports daytime sleepiness, Reports fatigue, Reports weakness Eyes: bilateral decreased vision, denies as per HPI, denies blurred vision, denies bulging eye, denies diplopia, denies discharge, denies dry eye, denies irritation, denies itching, denies pain, denies photophobia, denies loss of peripheral vision, denies loss of vision, denies tunnel vision/blind spots Ears: bilateral: decreased hearing, deny: ear discharge, earache, tinnitus Ears, nose, mouth and throat: Reports as per HPI Cardiovascular: Reports decreased exercise tolerance Respiratory: Reports as per HPI Gastrointestinal: Reports as per HPI Genitourinary: Reports incontinence Musculoskeletal: Reports as per HPI, Reports frequent falls Musculoskeletal: absent: ankle pain, ankle stiffness, ankle swelling Integumentary: Reports as per HPI Neurological: Reports as per HPI, Reports balance difficulties Psychiatric: Reports as per HPI Endocrine: Reports fatigue Hematologic/Lymphatic: Reports as per HPI Allergic/Immunologic: Reports as per HPI Past Medical History Past Medical History: Coronary Artery Disease (CAD), Cancer, GERD/Reflux, GI Bleed, Hyperlipidemia, Hypertension, Prostate Disorder, Sleep Apnea/CPAP/BIPAP, Thyroid Disorder Additional Past Medical History / Comment(s): PROSTATE CANCER ([place] & [place]IATION [place] (2011) , hiatal hernia, constipation, hx ulcer yrs ago, INCONTINE NT URINE-USES EXTERNAL MALE CATHETER, occasional dizziness."spinal tap done feb 12 2022 & MRI "water on the brain"-following with Dr Parkinson and specialist- ringing carolyn ear History of Any Multi-Drug Resistant Organisms: None Reported Past Surgical History: Heart Catheterization With Stent, Hernia Repair, Prostate Surgery, Tonsillectomy Additional Past Surgical History / Comment(s): colonoscopy, surgery for artificial urethral sphincter inserted and removed., carpal tunnel-left, nasal surgery. Past Anesthesia/Blood Transfusion Reactions: No Reported Reaction Date of Last Stent Placement:: 2001 Past Psychological History: No Psychological Hx Reported Smoking Status: Former smoker Past Alcohol Use History: None Reported Past Drug Use History: None Reported - Past Family History Sister(s) Family Medical History: Cancer Brother(s) Family Medical History: Cancer, CVA/TIA Medications and Allergies Home Medications Medication Instructions Recorded Confirmed Type Multivit-Min/FA/Lycopen/Lutein 1 tab PO DAILY 11/05/15 12/12/22 History [Centrum Silver Tablet] amLODIPine [Norvasc] 5 mg PO DAILY 11/05/15 12/12/22 History Aspirin [Adult Low Dose Aspirin EC] 81 mg PO DAILY 08/27/16 12/12/22 History Losartan [Cozaar] 50 mg PO DAILY 09/22/17 12/12/22 History Omeprazole [PriLOSEC] 20 mg PO DAILY 09/22/17 12/12/22 History Nitroglycerin Sl Tabs [Nitrostat] 0.4 mg SUBLINGUAL Q5M PRN #25 tab 09/30/17 12/12/22 Rx Albuterol Inhaler [Ventolin Hfa 2 puff INHALATION RT-Q6H PRN 09/04/19 12/12/22 History Inhaler] Atorvastatin [Lipitor] 40 mg PO DAILY 09/04/19 12/12/22 History Fish Oil/Dha/Epa [Fish Oil 1,200 1 cap PO DAILY 09/04/19 12/12/22 History mg Fish Oil] Levothyroxine Sodium [Levoxyl] 150 mcg PO DAILY 09/04/19 12/12/22 History Isosorbide Mononitrate ER [Imdur] 30 mg PO DAILY 06/28/20 12/12/22 History Acetaminophen [Tylenol Extra 500 - 1,000 mg PO Q6H PRN 07/03/20 12/12/22 History Strength] Bicalutamide [Casodex] 50 mg PO DIRECTED 03/24/22 12/12/22 History Pramipexole [Mirapex] 1 mg PO DIRECTED 03/24/22 12/12/22 History Vit C/E/Zn/Coppr/Lutein/Zeaxan 2 cap PO DAILY 03/24/22 12/12/22 History [Preservision Areds 2 Softgel] Cholecalciferol [Vitamin D3 (25 50 mcg PO DAILY 12/12/22 12/12/22 History Mcg = 1000 Iu)] Enzalutamide [Xtandi] 40 mg PO DIRECTED 12/12/22 12/12/22 History Gabapentin 300 mg PO DAILY 12/12/22 12/12/22 History LORazepam [Ativan] 0.5 mg PO DAILY 12/12/22 12/12/22 History Megestrol Acetate 20 mg PO DAILY 12/12/22 12/12/22 History Allergies Allergy/AdvReac Type Severity Reaction Status Date / Time venom-honey bee Allergy Severe Swelling Verified 12/12/22 16:02 [bee venom (honey bee)] latex Allergy Rash/Hives Verified 12/12/22 16:02 Physical Exam Vitals: Vital Signs Temp Pulse Pulse Resp BP BP Pulse Ox 12/13/22 10:17 96 12/13/22 07:47 97.5 F L 65 18 193/94 96 12/13/22 00:50 98.2 F 63 16 164/82 96 12/12/22 20:13 97.4 F L 65 16 146/75 97 12/12/22 17:27 97.9 F 70 18 122/78 95 12/12/22 16:00 58 L 19 128/80 95 12/12/22 15:00 55 L 18 105/89 95 12/12/22 12:44 97.7 F 66 18 138/92 95 Intake and Output 12/12/22 12/13/22 12/13/22 22:59 06:59 14:59 Other: Voiding Method External Catheter Incontinent External Catheter # Voids 2 Weight 95.254 kg Gen. appearance, calm and comfortable no acute distress, currently on room air oxygen Head exam was generally normal. There was no scleral icterus or corneal arcus. Mucous membranes were moist. Neck was supple and without jugular venous distension, thyromegaly, or carotid bruits. Carotids were easily palpable bilaterally. There was no adenopathy. Lungs sounds are diminished and there are clear Cardiac exam revealed the PMI to be normally situated and sized. The rhythm was regular and no extrasystoles were noted during several minutes of auscultation. The first and second heart sounds were normal and physiologic splitting of the second heart sound was noted. There were no murmurs, rubs, clicks, or gallops. Abdominal exam revealed normal bowel sounds. The abdomen was soft, non-tender, and without masses, organomegaly, or appreciable enlargement of the abdominal aorta. Examination of the extremities revealed easily palpable radial, femoral and pedal pulses. There was no cyanosis, clubbing or edema. Examination of the skin revealed no evidence of significant rashes, suspicious appearing nevi or other concerning lesions. Neurologically the patient has generalized global weakness. No focal neurological deficits. No cranial deficits. Results - Laboratory Findings CBC and BMP: 12/13/22 09:54 12/13/22 09:54 PT/INR, D-dimer PT 9.8 sec (9.0-12.0) 12/12/22 13:10 INR 0.9 (<1.2) 12/12/22 13:10 Abnormal lab findings: Abnormal Labs 12/12/22 12/12/22 12/12/22 13:10 13:10 13:10 RBC 3.94 L MCV 102.7 H MCH 35.3 H BUN 25 H Glucose 117 H Creatine Kinase Urine Protein Trace H Urine Blood Trace H Ur Leukocyte Esterase Large H Urine WBC 88 H Urine Bacteria Rare H Urine Mucus Occasional H 12/12/22 12/13/22 12/13/22 13:10 09:54 09:54 RBC 3.85 L MCV 103.0 H MCH 35.6 H BUN Glucose 104 H Creatine Kinase 354 H Urine Protein Urine Blood Ur Leukocyte Esterase Urine WBC Urine Bacteria Urine Mucus - Diagnostic Findings Chest x-ray: image reviewed Assessment and Plan Plan: COPD, inactive and stable, no evidence of pneumonia based on my review of the chest x-rays. No leukocytosis. No hypoxemia. No fever. Suspect UTI Generalized global weakness could be related to underlying UTI. Overall, there is significant medical debility. Frequent falls Mild elevation of CPK secondary to falls Coronary artery disease with previous coronary stenting History of prostate cancer Hypertension Hyperlipidemia Urinary incontinence Previous history of GI bleed Obstructive sleep apnea Hiatal hernia Plan Continue Rocephin pending cultures Urine cultures IV fluids at 75 mL an hour Resume all medications Physical therapy We'll follow
[2022-12-13] MEDS: BICALUTAMIDE 50 MG TAB PO SCH (12:53)
--- NOTE | 2022-12-13 14:38 | P.CONS ---
History of Present Illness - Reason for Consult Consult date: 12/13/22 - History of Present Illness Patient is a 82-year-old male with a past medical history significant for hypertension hyperlipidemia prostate disorder coronary disease and did have history of incontinent urine and did have external Catheter patient presenting to the hospital yesterday afternoon for evaluation of weakness and multiple falls symptom has been going on for the last few days patient denies having any headache or URI symptoms no chest pain shortness of breath or cough no nausea no vomiting no abdominal pain no diarrhea patient did have some concentrated dark urine but denies any suprapubic or flank pain patient on presentation to the hospital was afebrile and no fever have been recorded subsequently patient did have a normal white count kidney function was normal liver enzymes are normal did have a positive UA with large leukocyte esterase and 80 WBC patient did have a chest x-ray right lower lobe airspace opacity correlate for pneumonia and COPD changes repeat chest x-ray this morning no evidence for acute pulmonary disease patient was started on Rocephin and Zithromax infectious disease was consulted today for UTI and antibiotic management Past Medical History Past Medical History: Coronary Artery Disease (CAD), Cancer, GERD/Reflux, GI Bleed, Hyperlipidemia, Hypertension, Prostate Disorder, Sleep Apnea/CPAP/BIPAP, Thyroid Disorder Additional Past Medical History / Comment(s): PROSTATE CANCER ([place]URGERY & RADIATION [place] (2011) , hiatal hernia, constipation, hx ulcer yrs ago, INCONTINENT URINE-USES EXTERNAL MALE CATHETER, occasional dizziness."spinal tap done feb 12 2022 & MRI "water on the brain"-following with Dr Parkinson and specialist-ringing carolyn ear History of Any Multi-Drug Resistant Organisms: None Reported Past Surgical History: Heart Catheterization With Stent, Hernia Repair, Prostate Surgery, Tonsillectomy Additional Past Surgical History / Comment(s): colonoscopy, surgery for artificial urethral sphincter inserted and removed., carpal tunnel-left, nasal surgery. Past Anesthesia/Blood Transfusion Reactions: No Reported Reaction Date of Last Stent Placement:: 2001 Past Psychological History: No Psychological Hx Reported Smoking Status: Former smoker Past Alcohol Use History: None Reported Past Drug Use History: None Reported - Past Family History Sister(s) Family Medical History: Cancer Brother(s) Family Medical History: Cancer, CVA/TIA Medications and Allergies Home Medications Medication Instructions Recorded Confirmed Type Multivit-Min/FA/Lycopen/Lutein 1 tab PO DAILY 11/05/15 12/12/22 History [Centrum Silver Tablet] amLODIPine [Norvasc] 5 mg PO DAILY 11/05/15 12/12/22 History Aspirin [Adult Low Dose Aspirin EC] 81 mg PO DAILY 08/27/16 12/12/22 History Losartan [Cozaar] 50 mg PO DAILY 09/22/17 12/12/22 History Omeprazole [PriLOSEC] 20 mg PO DAILY 09/22/17 12/12/22 History Nitroglycerin Sl Tabs [Nitrostat] 0.4 mg SUBLINGUAL Q5M PRN #25 tab 09/30/17 12/12/22 Rx Albuterol Inhaler [Ventolin Hfa 2 puff INHALATION RT-Q6H PRN 09/04/19 12/12/22 History Inhaler] Atorvastatin [Lipitor] 40 mg PO DAILY 09/04/19 12/12/22 History Fish Oil/Dha/Epa [Fish Oil 1,200 1 cap PO DAILY 09/04/19 12/12/22 History mg Fish Oil] Levothyroxine Sodium [Levoxyl] 150 mcg PO DAILY 09/04/19 12/12/22 History Isosorbide Mononitrate ER [Imdur] 30 mg PO DAILY 06/28/20 12/12/22 History Acetaminophen [Tylenol Extra 500 - 1,000 mg PO Q6H PRN 07/03/20 12/12/22 History Strength] Bicalutamide [Casodex] 50 mg PO DIRECTED 03/24/22 12/12/22 History Pramipexole [Mirapex] 1 mg PO DIRECTED 03/24/22 12/12/22 History Vit C/E/Zn/Coppr/Lutein/Zeaxan 2 cap PO DAILY 03/24/22 12/12/22 History [Preservision Areds 2 Softgel] Cholecalciferol [Vitamin D3 (25 50 mcg PO DAILY 12/12/22 12/12/22 History Mcg = 1000 Iu)] Enzalutamide [Xtandi] 40 mg PO DIRECTED 12/12/22 12/12/22 History Gabapentin 300 mg PO DAILY 12/12/22 12/12/22 History LORazepam [Ativan] 0.5 mg PO DAILY 12/12/22 12/12/22 History Megestrol Acetate 20 mg PO DAILY 12/12/22 12/12/22 History Allergies Allergy/AdvReac Type Severity Reaction Status Date / Time venom-honey bee Allergy Severe Swelling Verified 12/12/22 16:02 [bee venom (honey bee)] latex Allergy Rash/Hives Verified 12/12/22 16:02 Physical Exam Vitals: Vital Signs Temp Pulse Pulse Resp BP BP Pulse Ox 12/13/22 10:17 96 12/13/22 07:47 97.5 F L 65 18 193/94 96 12/13/22 00:50 98.2 F 63 16 164/82 96 12/12/22 20:13 97.4 F L 65 16 146/75 97 12/12/22 17:27 97.9 F 70 18 122/78 95 12/12/22 16:00 58 L 19 128/80 95 12/12/22 15:00 55 L 18 105/89 95 12/12/22 12:44 97.7 F 66 18 138/92 95 Intake and Output 12/12/22 12/13/22 12/13/22 22:59 06:59 14:59 Other: Voiding Method External Catheter Incontinent External Catheter # Voids 2 Weight 95.254 kg Results CBC & Chem 7: 12/13/22 09:54 12/13/22 09:54 Labs: Abnormal Lab Results - Last 24 Hours (Table) 12/12/22 12/12/22 12/12/22 Range/Units 13:10 13:10 13:10 RBC 3.94 L (4.30-5.90) m/uL MCV 102.7 H (80.0-100.0) fL MCH 35.3 H (25.0-35.0) pg BUN 25 H (9-20) mg/dL Glucose 117 H (74-99) mg/dL Creatine Kinase (55-170) U/L Urine Protein Trace H (Negative) Urine Blood Trace H (Negative) Ur Leukocyte Esterase Large H (Negative) Urine WBC 88 H (0-5) /hpf Urine Bacteria Rare H (None) /hpf Urine Mucus Occasional H (None) /hpf 12/12/22 12/13/22 12/13/22 Range/Units 13:10 09:54 09:54 RBC 3.85 L (4.30-5.90) m/uL MCV 103.0 H (80.0-100.0) fL MCH 35.6 H (25.0-35.0) pg BUN (9-20) mg/dL Glucose 104 H (74-99) mg/dL Creatine Kinase 354 H (55-170) U/L Urine Protein (Negative) Urine Blood (Negative) Ur Leukocyte Esterase (Negative) Urine WBC (0-5) /hpf Urine Bacteria (None) /hpf Urine Mucus (None) /hpf Assessment and Plan Plan: 1patient was in the hospital with weakness and falls patient did have a positive UA did have a history of urinary incontinence with external catheter some urinary symptoms dark urine high clinical suspicious for symptomatic UTI patient currently on room air did not have significant respiratory symptoms clinical suspicion is low for pneumonia with a chest x-ray this morning was negative for acute cardiopulmonary process. 2patient to continue with Rocephin while waiting for the culture to finalize We will follow on clinical condition and cultures to further adjust medication if needed Thank you for this consultation we will follow the patient along with you Dictation was produced using [employer] dictation software. please excuse any grammatical, word or spelling errors. Time with Patient: Greater than 30
[2022-12-13] MEDS: ACETAMINOPHEN TAB 325 MG TAB PO PRN (16:35)
[2022-12-13] MEDS ORDERED: AZITHROMYCIN 500 MG in SODIUM CHLORIDE 0.9% 250 ML IVPB SCH (18:00)
[2022-12-13] MEDS: PRAMIPEXOLE 1 MG TAB PO SCH (21:08)
[2022-12-13] MEDS: HYDROcodone/APAP 7.5-325MG 1 EACH TAB PO PRN (22:07)
[2022-12-13] MEDS: MELATONIN 5 MG TABLET PO SCH (22:07)
[2022-12-14] MEDS: LEVOTHYROXINE 75 MCG TAB PO SCH (06:09)
[2022-12-14] MEDS: PANTOPRAZOLE 40 MG TABLET PO SCH (06:09)
[2022-12-14] MEDS: HYDROcodone/APAP 7.5-325MG 1 EACH TAB PO PRN ×2 (06:10→22:16)
[2022-12-14] MEDS: SODIUM CHLORIDE 0.9% 1,000 ML IV SCH (06:13)
[2022-12-14] MEDS: CHOLECALCIFEROL 25 MCG (1000 IU) TABLET PO SCH (07:42)
[2022-12-14] MEDS: MULTIVITAMINS, THERA 1 EACH TAB PO SCH (07:43)
[2022-12-14] MEDS: LORazepam 0.5 MG TAB PO SCH (07:43)
[2022-12-14] MEDS: amLODIPine 5 MG TAB PO SCH (07:43)
[2022-12-14] MEDS: ATORVASTATIN 40 MG TAB PO SCH (07:43)
[2022-12-14] MEDS: LOSARTAN 50 MG TAB PO SCH (07:43)
[2022-12-14] MEDS: MEGESTROL 40 MG TAB PO SCH (07:43)
[2022-12-14] MEDS: ENOXAPARIN 40 MG/0.4 ML SYRINGE SQ SCH (07:43)
[2022-12-14] MEDS: ISOSORBIDE MONONITRATE ER 30 MG TAB.ER.24H PO SCH (07:43)
[2022-12-14] MEDS: GABAPENTIN 300 MG CAP PO SCH (07:43)
[2022-12-14] MEDS: ASPIRIN 81 MG PO SCH (07:43)
[2022-12-14] MEDS: BICALUTAMIDE 50 MG TAB PO SCH (07:44)
[2022-12-14] MEDS: VIT A,C & E-LUTEIN-MINERALS 1 EACH TAB PO SCH (07:44)
[2022-12-14 11:02] LABS: Basophils # (A) 0.05 X 10*3/uL (0.00-0.10); Basophils % (A) 0.7 %; Eosinophils # (A) 0.41 X 10*3/uL (0.04-0.35); Eosinophils % (A) 5.9 %; HCT 37.8 % (39.6-50.0); HGB 12.9 d/dL (13.0-17.0); Lymphocytes # (A) 2.08 X 10*3/uL (0.90-5.00); Lymphocytes % (A) 29.8 %; MCHC 34.1 d/dL (32.0-37.0); MCV 102.4 FL (80.0-97.0); Monocytes % (A) 8.6 %; NRBC Per 100 WBC 0 X 10*3/uL (0.00-0.01); Neutrophils # (A) 3.83 X 10*3/uL (1.80-7.70); Neutrophils % (A) 54.7 %; Platelet Count 191 X 10*3/uL (140-440); RBC 3.69 X 10*6/uL (4.40-5.60); RDW 12.3 % (11.5-14.5); WBC 6.99 X 10*3/uL (4.50-10.00)
[2022-12-14 11:12] LABS: ALT 18 U/L (10-49); AST 25 U/L (14-35); Albumin 3.9 d/dL (3.8-4.9); Albumin/Globulin Ratio 1.86 Ratio (1.60-3.17); Alkaline Phosphatase 58 U/L (41-126); Blood Urea Nitrogen 15.5 mg/dL (9.0-27.0); Calcium 9.2 mg/dL (8.7-10.3); Carbon Dioxide 22.7 mmol/L (21.6-31.8); Chloride 105 mmol/L (96-109); Globulin 2.1 d/dL (1.6-3.3); Glucose 104 mg/dL (70-110); Potassium 3.9 mmol/L (3.5-5.5); Sodium 138 mmol/L (135-145); Total Bilirubin 0.5 mg/dL (0.3-1.2)
--- NOTE | 2022-12-14 13:01 | P.PN ---
Subjective Progress Note Date: 12/14/22 82-year-old male patient, lives in an assisted living, presented with generalized weakness of several weeks' duration. He was also having frequent falls. There was concern for pneumonia and for that reason pulmonary consultation was requested. The chest x-ray that was done in emergency showed a questionable right lower lobe airspace disease. There is also suspected UTI and the patient was started on a combination of Rocephin and Zithromax. The patient is currently on room air oxygen with a pulse ox of 97%. Hemodynamically stable. No significant cough or sputum production. No chest pain. No hemoptysis or pleurisy. CAT scan of the head showed no acute intracranial process that showed some chronic nonspecific white matter ischemic changes. He is known to have COPD, hypertension, hyperlipidemia, sleep apnea and previous history of prostate cancer treated by surgery and radiation. He has chronic urinary incontinence. No leukocytosis. No hypoxemia. Renal function stable with a BUN of 18 and a creatinine of 0.9. LFTs are normal. He does have some mild elevation of CPK related to fall. The patient is seen today 12/14/2022 in follow-up on the regular medical floor. He is awake and alert in no acute distress. He is maintaining good O2 saturations in the 90s on room air. His pro calcitonin was 0.03. He is currently on Rocephin and azithromycin. He has chronic Cohen in place. Recurrent UTIs. Chest x-ray revealed no acute pulmonary disease. White count 6.9. Hemoglobin 12.9. Platelets 191. Sodium 138. Potassium 3.9. Bicarb 23. BUN 15. Creatinine 1.0. Glucose 104. Urine culture pending. Objective - Vital Signs Vital signs: Vital Signs Temp 98.3 F 12/14/22 07:25 Pulse 53 L 12/14/22 07:25 Resp 18 12/14/22 07:25 BP 183/81 12/14/22 07:25 Pulse Ox 97 12/14/22 07:25 FiO2 Intake & Output 12/13/22 12/14/22 12/14/22 18:59 06:59 18:59 Other: Voiding Method Incontinent Diaper Diaper External Catheter Incontinent Incontinent # Voids 3 4 - Exam Gen. appearance reveals a pleasant 82-year-old male, calm and comfortable no acute distress, currently on room air oxygen Head exam was generally normal. There was no scleral icterus or corneal arcus. Mucous membranes were moist. Neck was supple and without jugular venous distension, thyromegaly, or carotid bruits. Carotids were easily palpable bilaterally. There was no adenopathy. Lungs sounds are diminished and they are clear with no rhonchi, wheeze or dulln ess. Cardiac exam revealed the PMI to be normally situated and sized. The rhythm was regular and no extrasystoles were noted during several minutes of auscultation. The first and second heart sounds were normal and physiologic splitting of the second heart sound was noted. There were no murmurs, rubs, clicks, or gallops. Abdominal exam revealed normal bowel sounds. The abdomen was soft, non-tender, and without masses, organomegaly, or appreciable enlargement of the abdominal aorta. Examination of the extremities revealed easily palpable radial, femoral and pedal pulses. There was no cyanosis, clubbing or edema. Examination of the skin revealed no evidence of significant rashes, suspicious appearing nevi or other concerning lesions. Neurologically the patient has generalized weakness. No focal neurological deficits. No cranial deficits. - Labs CBC & Chem 7: 12/14/22 07:01 12/14/22 07:01 Labs: Abnormal Lab Results - Last 24 Hours (Table) 12/14/22 12/14/22 Range/Units 07: 07:01 RBC 3.69 L (4.40-5.60) X 10*6/uL Hgb 12.9 L (13.0-17.0) d/dL Hct 37.8 L (39.6-50.0) % MCV 102.4 H (80.0-97.0) FL MCH 35.0 H (27.0-32.0) pg Eosinophils # 0.41 H (0.04-0.35) X 10*3/uL Total Protein 6.0 L (6.2-8.2) d/dL Assessment and Plan Assessment: COPD, inactive and stable, no evidence of pneumonia based on review of the chest x-rays. No leukocytosis. No hypoxemia. No fever. Suspect UTI culture pending, remains on ceftriaxone Generalized global weakness could be related to underlying UTI. Overall, there is significant medical debility. Frequent falls Mild elevation of CPK secondary to falls Coronary artery disease with previous coronary stenting History of prostate cancer Hypertension Hyperlipidemia Urinary incontinence Previous history of GI bleed Obstructive sleep apnea Hiatal hernia Plan: The patient was seen and evaluated Chest x-ray, labs and medications reviewed Procalcitonin within normal limits Discontinue azithromycin Urine culture pending Continue ceftriaxone We will continue to follow I have personally seen and examined the patient, performed the documentation and the assessment and plan as written. Number of minutes spent on the visit: 10.
--- NOTE | 2022-12-14 15:47 | P.CNNES ---
History of Present Illness Consult date: 12/14/22 Requesting physician: Ashley Gan Reason for Consult: weakness, frequent falls History of Present Illness: This is an 82-year-old gentleman who resides in assisted living facility present because of drowsiness weakness with frequent falls over the past several weeks. Patient feels he is having generalized weakness and feels unsteady walk-in. He denies of any of focal weakness. Denies any history of diabetes. He has chronic lower back pain according to him denies any radiation of lower back pain. He feels the back pain is in the posterior region and is mostly over the right side that. He is also having bilateral hip pain. Patient is somewhat slow in responding and the not a great historian but is able to provide some information. Some of the workup during his hospital visit consisted of: CK level is 354. Sodium, calcium, creatinine, magnesium is within normal limits. Urinalysis seems suggestive of underlying urinary tract infection. CT of the head is reported as no acute intracranial process. Nonspecific white matter changes, likely secondary to chronic small vessel ischemic disease. Of note patient had CT of the head on 11/18/2022 and it's reported as atrophy with chronic appearing periventricular white matter ischemic type changes. No abnormal enhancement. Arachnoid cyst to be present within the anterior posterior fossa and foramen magnum region. TSH was 5.86. Hemoglobin A1c at that time was 6.1. Review of Systems Review of system: The 12 point system was reviewed and apparent positive and negative per HPI. Past Medical History Past Medical History: Coronary Artery Disease (CAD), Cancer, GERD/Reflux, GI Bleed, Hyperlipidemia, Hypertension, Prostate Disorder, Sleep Apnea/CPAP/BIPAP, Thyroid Disorder Additional Past Medical History / Comment(s): PROSTATE CANCER ([place]GERY & [place]IATION [place] (2011) , hiatal hernia, constipation, hx ulcer yrs ago, INCONTINENT URINE-USES EXTERNAL MALE CATHETER, occasional dizziness."spinal tap done feb 12 2022 & MRI "water on the brain"-following with Dr Parkinson and specialist-janina carolyn ear History of Any Multi-Drug Resistant Organisms: None Reported Past Surgical History: Heart Catheterization With Stent, Hernia Repair, Prostate Surgery, Tonsillectomy Additional Past Surgical History / Comment(s): colonoscopy, surgery for artificial urethral sphincter inserted and removed., carpal tunnel-left, nasal surgery. Past Anesthesia/Blood Transfusion Reactions: No Reported Reaction Date of Last Stent Placement:: 2001 Past Psychological History: No Psychological Hx Reported Smoking Status: Former smoker Past Alcohol Use History: None Reported Past Drug Use History: None Reported - Past Family History Sister(s) Family Medical History: Cancer Brother(s) Family Medical History: Cancer, CVA/TIA Medications and Allergies Home Medications Medication Instructions Recorded Confirmed Type Multivit-Min/FA/Lycopen/Lutein 1 tab PO DAILY 11/05/15 12/12/22 History [Centrum Silver Tablet] amLODIPine [Norvasc] 5 mg PO DAILY 11/05/15 12/12/22 History Aspirin [Adult Low Dose Aspirin EC] 81 mg PO DAILY 08/27/16 12/12/22 History Losartan [Cozaar] 50 mg PO DAILY 09/22/17 12/12/22 History Omeprazole [PriLOSEC] 20 mg PO DAILY 09/22/17 12/12/22 History Nitroglycerin Sl Tabs [Nitrostat] 0.4 mg SUBLINGUAL Q5M PRN #25 tab 09/30/17 12/12/22 Rx Albuterol Inhaler [Ventolin Hfa 2 puff INHALATION RT-Q6H PRN 09/04/19 12/12/22 History Inhaler] Atorvastatin [Lipitor] 40 mg PO DAILY 09/04/19 12/12/22 History Fish Oil/Dha/Epa [Fish Oil 1,200 1 cap PO DAILY 09/04/19 12/12/22 History mg Fish Oil] Levothyroxine Sodium [Levoxyl] 150 mcg PO DAILY 09/04/19 12/12/22 History Isosorbide Mononitrate ER [Imdur] 30 mg PO DAILY 06/28/20 12/12/22 History Acetaminophen [Tylenol Extra 500 - 1,000 mg PO Q6H PRN 07/03/20 12/12/22 History Strength] Bicalutamide [Casodex] 50 mg PO DAILY 03/24/22 12/14/22 History Pramipexole [Mirapex] 1 mg PO HS 03/24/22 12/14/22 History Vit C/E/Zn/Coppr/Lutein/Zeaxan 2 cap PO DAILY 03/24/22 12/12/22 History [Preservision Areds 2 Softgel] Cholecalciferol [Vitamin D3 (25 50 mcg PO DAILY 12/12/22 12/12/22 History Mcg = 1000 Iu)] Enzalutamide [Xtandi] 160 mg PO DAILY 12/12/22 12/14/22 History Gabapentin 300 mg PO DAILY 12/12/22 12/12/22 History LORazepam [Ativan] 0.5 mg PO DAILY 12/12/22 12/12/22 History Megestrol Acetate 20 mg PO DAILY 12/12/22 12/12/22 History Allergies Allergy/AdvReac Type Severity Reaction Status Date / Time venom-honey bee Allergy Severe Swelling Verified 12/12/22 16:02 [bee venom (honey bee)] latex Allergy Rash/Hives Verified 12/12/22 16:02 Physical Examination - Vital Signs Vital Signs: Vital Signs Temp Pulse Resp BP Pulse Ox 12/14/22 07:25 98.3 F 53 L 18 183/81 97 12/14/22 01:41 97.6 F 66 16 166/85 96 12/13/22 20:00 67 12/13/22 19:34 97.5 F L 67 16 126/65 95 12/13/22 13:42 98.5 F 65 18 160/79 94 L Intake and Output 12/13/22 12/14/22 12/14/22 22:59 06:59 14:59 Other: Voiding Method Diaper Diaper Incontinent Incontinent # Voids 3 4 GENERAL: The patient is lying in bed and is not in acute distress. NEUROLOGICAL: Higher mental function: The patient is awake, alert, oriented to self, place and time. She is slow in responding. Patient is following simple commands. No aphasia and no neglect. Cranial nerves: The pupils are round, equal and reactive to light. Visual warner are full to confrontation throughout. Extraocular movement is intact no nystagmus is noted. Facial sensation is normal to touch throughout. The facial strength is normal throughout. Hearing is moderate to severely decreased bilaterally to hand rub. Tongue is midline and moved [id number] without any difficulty. No dysarthria is noted. Shoulder shrug is normal bilaterally. Motor: The strength is 5 over 5 throughout uppers. While lowers R/L: Hips 5-/4-, knee 4+/3-4, ankle ankle dorsiflexion 2/3 . ankle plantar flexion 3/3-4. Normal tone and bulk. Has malformed right ankle (bigger ins size compared to left). Cerebellum: Normal finger to nose and unable to perform lowers bilaterally. Sensation: Sensation is normal to touch throughout. Reflexes (right/left): 1+ throughout. Plantars mute on the right and left is downgoing bilaterally. Results - Laboratory Findings CBC and BMP: 12/14/22 07:01 12/14/22 07:01 Abnormal Lab Findings: Abnormal Labs 12/12/22 12/12/22 12/12/22 13:10 13:10 13:10 RBC 3.94 L Hgb Hct MCV 102.7 H MCH 35.3 H Eosinophils # BUN 25 H Glucose 117 H Creatine Kinase Total Protein Urine Protein Trace H Urine Blood Trace H Ur Leukocyte Esterase Large H Urine WBC 88 H Urine Bacteria Rare H Urine Mucus Occasional H 12/12/22 12/13/22 12/13/22 13:10 09:54 09:54 RBC 3.85 L Hgb Hct MCV 103.0 H MCH 35.6 H Eosinophils # BUN Glucose 104 H Creatine Kinase 354 H Total Protein Urine Protein Urine Blood Ur Leukocyte Esterase Urine WBC Urine Bacteria Urine Mucus 12/14/22 12/14/22 07:01 07:01 RBC 3.69 L Hgb 12.9 L Hct 37.8 L MCV 102.4 H MCH 35.0 H Eosinophils # 0.41 H BUN Glucose Creatine Kinase Total Protein 6.0 L Urine Protein Urine Blood Ur Leukocyte Esterase Urine WBC Urine Bacteria Urine Mucus Assessment and Plan Assessment: This is an 82-year-old gentleman who resides in assisted living facility who presents our facility because of generalized weakness and frequent falls. It seems the patient has underlying hypothryroidism and his recent TSH in begining of 11/2022 is abnormal, has underlying borderline diabetes. Patient endorses chronic lower back pain in the posterior region. On examination seems the patient has bilateral lower extremity weakness right more than left. Recurrent falls and states having generalized weakness but on examination has bilateral lower leg weakness (right > left): Unsure if due to significant lumbar stenosis vs radiculopathy. His generalized weakness with falls could be contributing from uncontrolled hypothyroidism as well as that could be due to his borderline diabetes. Probable acute UTI Chronic low back pain. History of CAD Status post stent History of hypothyroidism Hypertension Hyperlipidemia Sleep apnea Plan: Ordered MRI Lumbar spine to rule out any significant stenosis. He sated he had multiple CT's from his Neurologist (Dr. Parkinson). This patient has significant lumbar stenosis or any abnormal pathology in the lumbar region and then we'll consult orthopedic surgery team. I also ordered MRI Martine. I ordered a repeat TSH with reflex T4. Ordered vitamin B12, folate, orthostatic vitals to rule out any underlying other causes of frequent falls. PT and OT are consulted We'll defer the rest of the medical management to the primary team Thank you for the consultation Time with Patient: Greater than 30
--- NOTE | 2022-12-14 16:25 | P.PN ---
Subjective Progress Note Date: 12/14/22 This is an 82-year-old male patient of Dr. Godoy who presents with complaints of increased weakness and falls over the past month. Patient reports he's had just generalized weakness causing him to lose his balance increasing over the past few weeks. Patient has past medical history of coronary artery disease, GERD, GI bleed, hyperlipidemia, hypertension, prostate disorder, thyroid disorder, previous heart cath with stents and ex-smoker. Head CT completed showing no acute intracranial process. Nonspecific white matter changes likely secondary to chronic small vessel ischemic disease. Chest x-ray completed showing right lower lung airspace opacities correlate for pneumonia COPD changes. Hip x-ray completed showing no evidence for acute process mild bilateral hip osteoarthritis. UA positive for urinary tract infection. Vital signs temp 97.5, heart rate 65, respiratory rate 18, blood pressure 146/75 pulse ox 97% on room air. At this time patient will be admitted patient started on IV antibiotics Rocephin and azithromycin. Pulmonary and infectious disease service is consulted PT OT services consulted repeat chest x-ray ordered for a.m. On 12/14/2022 patient was seen and examined on the medical floor he is alert and oriented 3 in no apparent distress he is complaining of cough and complaining of generalized weakness otherwise he denies any complaints there is no fever or chills no headache or dizziness no chest pain no shortness of breath no nausea or vomiting no abdominal pain no diarrhea and no urinary symptoms Objective - Vital Signs Vital signs: Vital Signs Temp 97.9 F 12/14/22 14:00 Pulse 65 12/14/22 14:00 Resp 18 12/14/22 14:00 BP 128/65 12/14/22 14:00 Pulse Ox 96 12/14/22 14:00 FiO2 Intake & Output 12/13/22 12/14/22 12/14/22 18:59 06:59 18:59 Other: Voiding Method Incontinent Diaper Diaper External Catheter Incontinent Incontinent # Voids 3 4 - Exam Head normocephalic and atraumatic Neck supple no JVD no goiter Lungs clear to auscultation bilaterally no wheezing or crackles Heart regular rate and rhythm S1-S2, no rub or gallop Abdomen is soft nontender nondistended positive bowel sounds no hepat osplenomegaly Extremities no edema Neuro alert and orientated to 3 - Labs CBC & Chem 7: 12/14/22 07:01 12/14/22 07:01 Labs: Abnormal Lab Results - Last 24 Hours (Table) 12/14/22 12/14/22 12/14/22 Range/Units 07:01 07:01 07:01 RBC 3.69 L (4.40-5.60) X 10*6/uL Hgb 12.9 L (13.0-17.0) d/dL Hct 37.8 L (39.6-50.0) % MCV 102.4 H (80.0-97.0) FL MCH 35.0 H (27.0-32.0) pg Eosinophils # 0.41 H (0.04-0.35) X 10*3/uL Total Protein 6.0 L (6.2-8.2) d/dL TSH 13.000 H (0.350-5.500) UIU/ML Microbiology - Last 24 Hours (Table) 12/12/22 17:07 Blood Culture - Preliminary Blood Assessment and Plan Plan: 1. Generalized weakness secondary to UTI pneumonia 2. Urinary tract infection. Urine culture ordered 3. Pneumonia. Repeat 2 view chest x-ray ordered. procalcitonin level ordered patient started on IV antibiotics 4. History of coronary artery disease with previous stent placement 5. History of hyperlipidemia 6. History of essential hypertension 7. History of prostate cancer 8. Ex-smoker DVT prophylaxis Lovenox. GI prophylaxis Protonix Infectious disease and pulmonary services consulted Patient started on IV antibiotics Repeat 2 view chest x-ray ordered Urine culture ordered Repeat labs ordered
[2022-12-14] MEDS: PRAMIPEXOLE 1 MG TAB PO SCH (21:57)
[2022-12-14] MEDS: MELATONIN 5 MG TABLET PO SCH (21:57)
[2022-12-15] MEDS: SODIUM CHLORIDE 0.9% 1,000 ML IV SCH ×3 (01:39→22:39)
[2022-12-15] MEDS: LEVOTHYROXINE 75 MCG TAB PO SCH (06:51)
[2022-12-15] MEDS: PANTOPRAZOLE 40 MG TABLET PO SCH (06:52)
[2022-12-15 07:13] LABS: Basophils % (A) 1 %; Eosinophils # (A) 0.6 k/uL (0-0.7); Eosinophils % (A) 9 %; HCT 39.1 % (39.0-53.0); HGB 13.6 gm/dL (13.0-17.5); Lymphocytes # (A) 1.9 k/uL (1.0-4.8); Lymphocytes % (A) 31 %; MCH 35.8 pg (25.0-35.0); MCHC 34.8 g/dL (31.0-37.0); Macrocytosis Slight; Mean Platelet Volume 7.6; Monocytes # (A) 0.4 k/uL (0-1.0); Monocytes % (A) 6 %; Neutrophils # (A) 3.3 k/uL (1.3-7.7); Neutrophils % (A) 53 %; Platelet Count 206 k/uL (150-450); RBC 3.79 m/uL (4.30-5.90); RDW 12.6 % (11.5-15.5); WBC 6.3 k/uL (3.8-10.6)
[2022-12-15 07:23] LABS: ALT 18 U/L (4-49); AST 24 U/L (17-59); African American GFR (CKD) 88 (>60 ml/min/1.73 sqM); Albumin 3.6 g/dL (3.5-5.0); Albumin/Globulin Ratio 1.3; Alkaline Phosphatase 86 U/L (38-126); Anion Gap 8 mmol/L; Blood Urea Nitrogen 15 mg/dL (9-20); Carbon Dioxide 21 mmol/L (22-30); Chloride 107 mmol/L (98-107); Globulin 2.7 g/dL; Glucose 105 mg/dL (74-99); Non-African American GFR(CKD) 76 (>60 ml/min/1.73 sqM); Potassium 3.9 mmol/L (3.5-5.1); Sodium 136 mmol/L (137-145); Total Bilirubin 0.4 mg/dL (0.2-1.3); Total Protein 6.3 g/dL (6.3-8.2)
[2022-12-15] MEDS: ENOXAPARIN 40 MG/0.4 ML SYRINGE SQ SCH (08:07)
[2022-12-15] MEDS: VIT A,C & E-LUTEIN-MINERALS 1 EACH TAB PO SCH (08:08)
[2022-12-15] MEDS: ATORVASTATIN 40 MG TAB PO SCH (08:08)
[2022-12-15] MEDS: MULTIVITAMINS, THERA 1 EACH TAB PO SCH (08:08)
[2022-12-15] MEDS: MEGESTROL 40 MG TAB PO SCH (08:08)
[2022-12-15] MEDS: LORazepam 0.5 MG TAB PO SCH (08:08)
[2022-12-15] MEDS: amLODIPine 5 MG TAB PO SCH (08:08)
[2022-12-15] MEDS: LOSARTAN 50 MG TAB PO SCH (08:08)
[2022-12-15] MEDS: ASPIRIN 81 MG PO SCH (08:08)
[2022-12-15] MEDS: CHOLECALCIFEROL 25 MCG (1000 IU) TABLET PO SCH (08:08)
[2022-12-15] MEDS: ISOSORBIDE MONONITRATE ER 30 MG TAB.ER.24H PO SCH (08:08)
[2022-12-15] MEDS: GABAPENTIN 300 MG CAP PO SCH (08:08)
[2022-12-15] MEDS: BICALUTAMIDE 50 MG TAB PO SCH (08:22)
--- NOTE | 2022-12-15 13:02 | P.PN ---
Subjective Progress Note Date: 12/15/22 82-year-old male patient, lives in an assisted living, presented with generalized weakness of several weeks' duration. He was also having frequent falls. There was concern for pneumonia and for that reason pulmonary consultation was requested. The chest x-ray that was done in emergency showed a questionable right lower lobe airspace disease. There is also suspected UTI and the patient was started on a combination of Rocephin and Zithromax. The patient is currently on room air oxygen with a pulse ox of 97%. Hemodynamically stable. No significant cough or sputum production. No chest pain. No hemoptysis or pleurisy. CAT scan of the head showed no acute intracranial process that showed some chronic nonspecific white matter ischemic changes. He is known to have COPD, hypertension, hyperlipidemia, sleep apnea and previous history of prostate cancer treated by surgery and radiation. He has chronic urinary incontinence. No leukocytosis. No hypoxemia. Renal function stable with a BUN of 18 and a creatinine of 0.9. LFTs are normal. He does have some mild elevation of CPK related to fall. The patient is seen today 12/14/2022 in follow-up on the regular medical floor. He is awake and alert in no acute distress. He is maintaining good O2 saturations in the 90s on room air. His pro calcitonin was 0.03. He is currently on Rocephin and azithromycin. He has chronic Cohen in place. Recurrent UTIs. Chest x-ray revealed no acute pulmonary disease. White count 6.9. Hemoglobin 12.9. Platelets 191. Sodium 138. Potassium 3.9. Bicarb 23. BUN 15. Creatinine 1.0. Glucose 104. Urine culture pending. The patient seen today 12/15/2022 in follow-up on the regular medical floor. He is awake and alert in no acute distress. His pro calcitonin 0.03. Urine culture shows no growth. He remains on Rocephin. He is maintaining good O2 saturations in the 90s on room air. White count 6.3. Hemoglobin 13.6. Sodium 136. Potassium 3.9. Bicarb 21. BUN 15. Creatinine 0.92. Glucose 105. Remains quite weak. MRI of the brain and lumbar spine are pending. Objective - Vital Signs Vital signs: Vital Signs Temp 97.8 F 12/15/22 07:00 Pulse 62 12/15/22 07:00 Resp 18 12/15/22 07:00 BP 180/82 12/15/22 07:00 Pulse Ox 95 12/15/22 07:00 FiO2 Intake & Output 12/14/22 12/15/22 12/15/22 18:59 06:59 18:59 Intake Total 1080 Balance 1080 Intake: Oral 1080 Other: Voiding Method Diaper Diaper Diaper Incontinent Incontinent Incontinent External Catheter External Catheter # Voids 3 5 # Bowel Movements 1 - Exam Gen. appearance reveals a pleasant 82-year-old male, resting comfortably in bed, no acute distress, on room air oxygen Head exam was generally normal. There was no scleral icterus or corneal arcus. Mucous membranes were moist. Neck was supple and without jugular venous distension, thyromegaly, or carotid bruits. Carotids were easily palpable bilaterally. There was no adenopathy. Lungs sounds are diminished and they are clear with no rhonchi, wheeze or dullness. Cardiac exam revealed the PMI to be normally situated and sized. The rhythm was regular and no extrasystoles were noted during several minutes of auscultation. The first and second heart sounds were normal and physiologic splitting of the second heart sound was noted. There were no murmurs, rubs, clicks, or gallops. Abdominal exam revealed normal bowel sounds. The abdomen was soft, non-tender, and without masses, organomegaly, or appreciable enlargement of the abdominal aorta. Examination of the extremities revealed easily palpable radial, femoral and pedal pulses. There was no cyanosis, clubbing or edema. Examination of the skin revealed no evidence of significant rashes, suspicious appearing nevi or other concerning lesions. Neurologically the patient has generalized weakness. No focal neurological deficits. No cranial deficits. - Labs CBC & Chem 7: 12/15/22 06:29 12/15/22 06:29 Labs: Abnormal Lab Results - Last 24 Hours (Table) 12/14/22 12/15/22 12/15/22 Range/Units 07:01 06: 06:29 RBC 3.79 L (4.30-5.90) m/uL MCV 103.0 H (80.0-100.0) fL MCH 35.8 H (25.0-35.0) pg Sodium 136 L (137-145) mmol/L Carbon Dioxide 21 L (22-30) mmol/L Glucose 105 H (74-99) mg/dL TSH 13.000 H (0.350-5.500) UIU/ML Microbiology - Last 24 Hours (Table) 12/13/22 17:16 Urine Culture - Final Urine,Clean Catch 12/12/22 17:07 Blood Culture - Preliminary Blood Assessment and Plan Assessment: COPD, inactive and stable, no evidence of pneumonia based on review of the chest x-rays. No leukocytosis. No hypoxemia. No fever. Generalized global weakness could be related to underlying UTI. Overall, there is significant medical debility. Frequent falls Mild elevation of CPK secondary to falls Coronary artery disease with previous coronary stenting History of prostate cancer Hypertension Hyperlipidemia Urinary incontinence Previous history of GI bleed Obstructive sleep apnea Hiatal hernia Plan: The patient was seen and evaluated Labs and medications reviewed Continue the current treatment plan The plan is for subacute rehab at discharge We will continue to follow I have personally seen and examined the patient, performed the documentation and the assessment and plan as written. Number of minutes spent on the visit: 10.
--- NOTE | 2022-12-15 14:58 | P.PN ---
Subjective Progress Note Date: 12/14/22 Principal diagnosis: Urinary tract infection Patient is a 82-year-old male with a past medical history significant for hypertension hyperlipidemia prostate disorder coronary disease and did have history of incontinent urine and did have external Catheter patient presenting to the hospital yesterday afternoon for evaluation of weakness and multiple falls , patient did have a urinary symptoms positive UA concerning for symptomatic UTI. On today's evaluation and that is 12/06/2022, the patient remains to be afebrile, the patient's abdominal feeling weak he is breathing comfortably on chest pain shortness of breath or cough no abdominal pain and no diarrhea. Patient did have a hemoglobin of 12.16539 daily 1.0, blood and urine cultures so far pending Objective - Vital Signs Vital signs: Vital Signs Temp 98.3 F 12/14/22 07:25 Pulse 53 L 12/14/22 07:25 Resp 18 12/14/22 07:25 BP 183/81 12/14/22 07:25 Pulse Ox 97 12/14/22 07:25 FiO2 Intake & Output 12/13/22 12/14/22 12/14/22 18:59 06:59 18:59 Other: Voiding Method Incontinent Diaper Diaper External Catheter Incontinent Incontinent # Voids 3 4 - Exam GENERAL DESCRIPTION: An elderly male up in the chair in no distress RESPIRATORY SYSTEM: Unlabored breathing , decreased breath sounds at bases HEART: S1 S2 regular rate and rhythm , ABDOMEN: Soft , no tenderness EXTREMITIES: No edema feet - Labs CBC & Chem 7: 12/15/22 06:29 12/15/22 06:29 Labs: Abnormal Lab Results - Last 24 Hours (Table) 12/14/22 12/14/22 Range/Units 07:01 07:01 RBC 3.69 L (4.40-5.60) X 10*6/uL Hgb 12.9 L (13.0-17.0) d/dL Hct 37.8 L (39.6-50.0) % MCV 102.4 H (80.0-97.0) FL MCH 35.0 H (27.0-32.0) pg Eosinophils # 0.41 H (0.04-0.35) X 10*3/uL Total Protein 6.0 L (6.2-8.2) d/dL Assessment and Plan (1) UTI (urinary tract infection) Current Visit: Yes Status: Acute Code(s): N39.0 - URINARY TRACT INFECTION, SITE NOT SPECIFIED SNOMED Code(s): 28437037 Plan: 1patient was in the hospital with weakness and falls patient did have a positive UA did have a history of urinary incontinence with external catheter some urinary symptoms dark urine high clinical suspicious for symptomatic UTI patient currently on room air did not have significant respiratory symptoms clinical suspicion is low for pneumonia with a chest x-ray repeat was negative for acute cardiopulmonary process. 2patient to continue with Rocephin while waiting for the culture to finalize Dictation was produced using [employer] dictation software. please excuse any grammatical, word or spelling errors. Time with Patient: Less than 30
--- NOTE | 2022-12-15 15:00 | P.PN ---
Subjective Progress Note Date: 12/15/22 Principal diagnosis: Urinary tract infection Patient is a 82-year-old male with a past medical history significant for hypertension hyperlipidemia prostate disorder coronary disease and did have history of incontinent urine and did have external Catheter patient presenting to the hospital yesterday afternoon for evaluation of weakness and multiple falls , patient did have a urinary symptoms positive UA concerning for symptomatic UTI. On today's evaluation and that is 12/15/2022, the patient continues to be afebrile, the patient is feeling slightly better today, the patient is breathing comfortably on room air, which denies chest pain shortness of breath or cough no abdominal pain and no diarrhea. Patient did have a hemoglobin of 13.6, white count is 6.3, creatinine 0.92, blood and urine cultures so far negative Objective - Vital Signs Vital signs: Vital Signs Temp 97.8 F 12/15/22 07:00 Pulse 62 12/15/22 07:00 Resp 18 12/15/22 07:00 BP 180/82 12/15/22 07:00 Pulse Ox 95 12/15/22 07:00 FiO2 Intake & Output 12/14/22 12/15/22 12/15/22 18:59 06:59 18:59 Intake Total 1080 Balance 1080 Intake: Oral 1080 Other: Voiding Method Diaper Diaper Diaper Incontinent Incontinent Incontinent External Catheter External Catheter # Voids 3 5 # Bowel Movements 1 - Exam GENERAL DESCRIPTION: An elderly male up in the chair in no distress RESPIRATORY SYSTEM: Unlabored breathing , decreased breath sounds at bases HEART: S1 S2 regular rate and rhythm , ABDOMEN: Soft , no tenderness EXTREMITIES: No edema feet - Labs CBC & Chem 7: 12/15/22 06:29 12/15/22 06:29 Labs: Abnormal Lab Results - Last 24 Hours (Table) 12/14/22 12/15/22 12/15/22 Range/Units 07:01 06:29 06:29 RBC 3.79 L (4.30-5.90) m/uL MCV 103.0 H (80.0-100.0) fL MCH 35.8 H (25.0-35.0) pg Sodium 136 L (137-145) mmol/L Carbon Dioxide 21 L (22-30) mmol/L Glucose 105 H (74-99) mg/dL TSH 13.000 H (0.350-5.500) UIU/ML Microbiology - Last 24 Hours (Table) 12/12/22 17:07 Blood Culture - Preliminary Blood 12/13/22 17:16 Urine Culture - Final Urine,Clean Catch Assessment and Plan (1) UTI (urinary tract infection) Current Visit: Yes Status: Acute Code(s): N39.0 - URINARY TRACT INFECTION, SITE NOT SPECIFIED SNOMED Code(s): 13511946 Plan: 1patient was in the hospital with weakness and falls patient did have a positive UA did have a history of urinary incontinence with external catheter some urinary symptoms dark urine high clinical suspicious for symptomatic UTI patient currently on room air did not have significant respiratory symptoms clinical suspicion is low for pneumonia with a chest x-ray repeat was negative for acute cardiopulmonary process. 2patient seemed to show some clinical improvement culture had been negative so far patient to continue with Rocephin and monitor clinical course closely Dictation was produced using [employer] dictation software. please excuse any g rammatical, word or spelling errors. Time with Patient: Less than 30
--- NOTE | 2022-12-15 16:41 | P.PN ---
Subjective Progress Note Date: 12/15/22 The patient is seen at bedside and is accompanied with his grandson who states the patient was told he had "water in his brain" Patient stated he was told he had "water in brain" and was seen initially be Dr. Parkinson then was Dr. Marie (neurosurgeon) over at [facility] in [place] about a year ago and was told no intervention because of his "memory issues" according to patient. He had memory loss for the past one year per grandson and urinary incontinence. He has been having falls for the past one week. He has history of prostate cancer. Objective - Vital Signs Vital signs: Vital Signs Temp 99.0 F 12/15/22 14:00 Pulse 74 12/15/22 14:00 Resp 18 12/15/22 14:00 BP 118/68 12/15/22 14:00 Pulse Ox 95 12/15/22 14:00 FiO2 Intake & Output 12/14/22 12/15/22 12/15/22 18:59 06:59 18:59 Intake Total 1080 Balance 1080 Intake: Oral 1080 Other: Voiding Method Diaper Diaper Diaper Incontinent Incontinent Incontinent External Catheter External Catheter # Voids 3 5 # Bowel Movements 1 - Exam GENERAL: The patient is sitting in a chair and is not in acute distress. NEUROLOGICAL: Higher mental function: The patient is awake, alert, oriented to self, place and time.He is mildly slow responding. Patient is following simple commands. No aphasia and no neglect. Cranial nerves: The pupils are round, equal and reactive to light. Visual warner are full to confrontation throughout. Extraocular movement is intact no nystagmus is noted. Facial sensation is normal to touch throughout. The facial strength is normal throughout. Hearing is moderate to severely decreased bilaterally to hand rub. Tongue is midline and moved [id number] without any difficulty. No dysarthria is noted. Shoulder shrug is normal bilaterally. Motor: The strength is 5 over 5 throughout uppers. While lowers R/L: Hips 5-/4-, knee 4+/3-4, ankle ankle dorsiflexion 2/3 . ankle plantar flexion 3/3-4. Normal tone and bulk. Has malformed right ankle (bigger ins size compared to left). Cerebellum: Normal finger to nose and unable to perform lowers bilaterally. Sensation: Sensation is normal to touch throughout. Reflexes (right/left): 1+ throughout. Plantars mute on the right and left is downgoing bilaterally. Some of the workup during his hospital visit consisted of: CK level is 354. Vitamin B12: 364 Folate level: 19.40 TSH: 13 and free T4: 1.0 Sodium, calcium, creatinine, magnesium is within normal limits. Urinalysis seems suggestive of underlying urinary tract infection. CT of the head is reported as no acute intracranial process. Nonspecific white matter changes, likely secondary to chronic small vessel ischemic disease. Of note patient had CT of the head on 11/18/2022 and it's reported as atrophy with chronic appearing periventricular white matter ischemic type changes. No abnormal enhancement. Arachnoid cyst to be present within the anterior posterior fossa and foramen magnum region. TSH was 5.86. Hemoglobin A1c at that time was 6.1. - Labs CBC & Chem 7: 12/15/22 06:29 12/15/22 06:29 Labs: Abnormal Lab Results - Last 24 Hours (Table) 12/14/22 12/15/22 12/15/22 Range/Units 07:01 06:29 06:29 RBC 3.79 L (4.30-5.90) m/uL MCV 103.0 H (80.0-100.0) fL MCH 35.8 H (25.0-35.0) pg Sodium 136 L (137-145) mmol/L Carbon Dioxide 21 L (22-30) mmol/L Glucose 105 H (74-99) mg/dL TSH 13.000 H (0.350-5.500) UIU/ML Microbiology - Last 24 Hours (Table) 12/12/22 17:07 Blood Culture - Preliminary Blood 12/13/22 17:16 Urine Culture - Final Urine,Clean Catch Assessment and Plan Assessment: This is an 82-year-old gentleman who resides in assisted living facility who presents our facility because of generalized weakness and frequent falls. It seems the patient has underlying hypothryroidism and his recent TSH in begining of 11/2022 is abnormal, has underlying borderline diabetes. Patient endorses chronic lower back pain in the posterior region. On examination seems the patient has bilateral lower extremity weakness right more than left. Recurrent falls and states having generalized weakness but on examination has bilateral lower leg weakness (right > left): Unsure if due to significant lumbar stenosis vs radiculopathy. His generalized weakness with falls could be contributing from uncontrolled hypothyroidism as well as that could be due to his borderline diabetes. Also due to his underlying Normal pressure hydrocephalus. Probable acute UTI Likely underlying hx of Normal pressure hydrocephalus (NPH). About a year ago and was seen by neurosurgeon and was told no intervention. low normal vitamin B12: 364, Chronic low back pain. History of CAD Status post stent History of hypothyroidism Hypertension Hyperlipidemia Sleep apnea Plan: Ordered MRI Lumbar spine to rule out any significant stenosis. He sated he had multiple CT's from his Neurologist (Dr. Parkinson). This patient has significant lumbar stenosis or any abnormal pathology in the lumbar region and then we'll consult orthopedic surgery team. I also ordered MRI [place]. Patient has low normal vitamin B12: 364, therefore started him on Vitamin B12 1000mcg daily. Pending orthostatic vitals to rule out any underlying other causes of frequent falls. It seems he has underlying history of NPH and was evaluated by Dr. Marie (who is currently ) about a year ago and was told no intervention. Can consider a second neurosurgeon opinion for BANKRUPTCY MANAGER shunt as outpatient. PT and OT are consulted We'll defer the rest of the medical management to the primary team The plan is discussed with patient and his grandson who is at bedside. Time with Patient: Less than 30
--- NOTE | 2022-12-15 17:45 | P.PN ---
Subjective Progress Note Date: 12/15/22 This is an 82-year-old male patient of Dr. Godoy who presents with complaints of increased weakness and falls over the past month. Patient reports he's had just generalized weakness causing him to lose his balance increasing over the past few weeks. Patient has past medical history of coronary artery disease, GERD, GI bleed, hyperlipidemia, hypertension, prostate disorder, thyroid disorder, previous heart cath with stents and ex-smoker. Head CT completed showing no acute intracranial process. Nonspecific white matter changes likely secondary to chronic small vessel ischemic disease. Chest x-ray completed showing right lower lung airspace opacities correlate for pneumonia COPD changes. Hip x-ray completed showing no evidence for acute process mild bilateral hip osteoarthritis. UA positive for urinary tract infection. Vital signs temp 97.5, heart rate 65, respiratory rate 18, blood pressure 146/75 pulse ox 97% on room air. At this time patient will be admitted patient started on IV antibiotics Rocephin and azithromycin. Pulmonary and infectious disease service is consulted PT OT services consulted repeat chest x-ray ordered for a.m. On 12/14/2022 patient was seen and examined on the medical floor he is alert and oriented 3 in no apparent distress he is complaining of cough and complaining of generalized weakness otherwise he denies any complaints there is no fever or chills no headache or dizziness no chest pain no shortness of breath no nausea or vomiting no abdominal pain no diarrhea and no urinary symptoms. On 12/15/2022 patient was seen and examined on the medical floor he is alert and oriented in no apparent distress he is complaining of generalized weakness and cough otherwise he denies any complaints. TSH was elevated at 13. Patient insists that he has been taking his Synthroid 150 g on a daily basis. At this time will increase Synthroid dose to 175 g. Continue with current management otherwise. Objective - Vital Signs Vital signs: Vital Signs Temp 99.0 F 12/15/22 14:00 Pulse 74 12/15/22 14:00 Resp 18 12/15/22 14:00 BP 118/68 12/15/22 14:00 Pulse Ox 95 12/15/22 14:00 FiO2 Intake & Output 12/14/22 12/15/22 12/15/22 18:59 06:59 18:59 Intake Total 1080 Balance 1080 Intake: Oral 1080 Other: Voiding Method Diaper Diaper Diaper Incontinent Incontinent Incontinent External Catheter External Catheter # Voids 3 5 # Bowel Movements 1 - Exam Head normocephalic and atraumatic Neck supple no JVD no goiter Lungs clear to auscultation bilaterally no wheezing or crackles Heart regular rate and rhythm S1-S2, no rub or gallop Abdomen is soft nontender nondistended positive bowel sounds no hepatosplenomegaly Extremities no edema Neuro alert and orientated to 3 - Labs CBC & Chem 7: 12/15/22 06:29 12/15/22 06:29 Labs: Abnormal Lab Results - Last 24 Hours (Table) 12/15/22 12/15/22 Range/Units 06:29 06:29 RBC 3.79 L (4.30-5.90) m/uL MCV 103.0 H (80.0-100.0) fL MCH 35.8 H (25.0-35.0) pg Sodium 136 L (137-145) mmol/L Carbon Dioxide 21 L (22-30) mmol/L Glucose 105 H (74-99) mg/dL Microbiology - Last 24 Hours (Table) 12/12/22 17:07 Blood Culture - Preliminary Blood 12/13/22 17:16 Urine Culture - Final Urine,Clean Catch Assessment and Plan Plan: 1. Generalized weakness secondary to UTI pneumonia 2. Urinary tract infection. Urine culture ordered 3. Pneumonia. Repeat 2 view chest x-ray ordered. procalcitonin level ordered patient started on IV antibiotics 4. History of coronary artery disease with previous stent placement 5. History of hyperlipidemia 6. History of essential hypertension 7. History of prostate cancer 8. Ex-smoker DVT prophylaxis Lovenox. GI prophylaxis Protonix Infectious disease and pulmonary services consulted Patient started on IV antibiotics Repeat 2 view chest x-ray ordered Urine culture ordered Repeat labs ordered
[2022-12-15] MEDS: CYANOCOBALAMIN 500 MCG TAB PO SCH (18:44)
[2022-12-15] MEDS: MELATONIN 5 MG TABLET PO SCH (22:38)
[2022-12-15] MEDS: PRAMIPEXOLE 1 MG TAB PO SCH (22:38)
[2022-12-15] MEDS: ENZALUTAMIDE 120 MG PO SCH (22:39)
[2022-12-16] MEDS: PANTOPRAZOLE 40 MG TABLET PO SCH (06:41)
[2022-12-16] MEDS: LEVOTHYROXINE 100 MCG TAB PO SCH (06:41)
[2022-12-16] MEDS: CYANOCOBALAMIN 500 MCG TAB PO SCH (07:52)
[2022-12-16] MEDS: ATORVASTATIN 40 MG TAB PO SCH (07:52)
[2022-12-16] MEDS: MEGESTROL 40 MG TAB PO SCH (07:53)
[2022-12-16] MEDS: MULTIVITAMINS, THERA 1 EACH TAB PO SCH (07:53)
[2022-12-16] MEDS: amLODIPine 5 MG TAB PO SCH (07:53)
[2022-12-16] MEDS: ASPIRIN 81 MG PO SCH (07:53)
[2022-12-16] MEDS: CHOLECALCIFEROL 25 MCG (1000 IU) TABLET PO SCH (07:53)
[2022-12-16] MEDS: ISOSORBIDE MONONITRATE ER 30 MG TAB.ER.24H PO SCH (07:53)
[2022-12-16] MEDS: LOSARTAN 50 MG TAB PO SCH (07:53)
[2022-12-16] MEDS: LORazepam 0.5 MG TAB PO SCH (07:53)
[2022-12-16] MEDS: VIT A,C & E-LUTEIN-MINERALS 1 EACH TAB PO SCH (07:54)
[2022-12-16] MEDS: ENOXAPARIN 40 MG/0.4 ML SYRINGE SQ SCH (07:54)
[2022-12-16] MEDS: BICALUTAMIDE 50 MG TAB PO SCH (07:55)
[2022-12-16] MEDS: ENZALUTAMIDE 120 MG PO SCH (07:55)
[2022-12-16] MEDS: GABAPENTIN 300 MG CAP PO SCH (08:00)
--- NOTE | 2022-12-16 11:27 | P.PN ---
Subjective Progress Note Date: 12/16/22 This is an 82-year-old male patient of Dr. Godoy who presents with complaints of increased weakness and falls over the past month. Patient reports he's had just generalized weakness causing him to lose his balance increasing over the past few weeks. Patient has past medical history of coronary artery disease, GERD, GI bleed, hyperlipidemia, hypertension, prostate disorder, thyroid disorder, previous heart cath with stents and ex-smoker. Head CT completed showing no acute intracranial process. Nonspecific white matter changes likely secondary to chronic small vessel ischemic disease. Chest x-ray completed showing right lower lung airspace opacities correlate for pneumonia COPD changes. Hip x-ray completed showing no evidence for acute process mild bilateral hip osteoarthritis. UA positive for urinary tract infection. Vital signs temp 97.5, heart rate 65, respiratory rate 18, blood pressure 146/75 pulse ox 97% on room air. At this time patient will be admitted patient started on IV antibiotics Rocephin and azithromycin. Pulmonary and infectious disease service is consulted PT OT services consulted repeat chest x-ray ordered for a.m. On 12/14/2022 patient was seen and examined on the medical floor he is alert and oriented 3 in no apparent distress he is complaining of cough and complaining of generalized weakness otherwise he denies any complaints there is no fever or chills no headache or dizziness no chest pain no shortness of breath no nausea or vomiting no abdominal pain no diarrhea and no urinary symptoms. On 12/15/2022 patient was seen and examined on the medical floor he is alert and oriented in no apparent distress he is complaining of generalized weakness and cough otherwise he denies any complaints. TSH was elevated at 13. Patient insists that he has been taking his Synthroid 150 g on a daily basis. At this time will increase Synthroid dose to 175 g. Continue with current management otherwise. On 12/16/2022 patient is alert and oriented 3. MRI of the spine has been ordered per neurology services. Patient denies chest pain or shortness of breath. Patient denies nausea vomiting or diarrhea. Patient denies any urinary burning or frequency Objective - Vital Signs Vital signs: Vital Signs Temp 98.4 F 12/16/22 07:08 Pulse 62 12/16/22 07:08 Resp 18 12/16/22 07:08 BP 189/84 12/16/22 08:29 Pulse Ox 97 12/16/22 07:08 FiO2 Intake & Output 12/15/22 12/16/22 12/16/22 18:59 06:59 18:59 Output Total 950 Balance -950 Output: Urine 950 Other: Voiding Method Diaper Diaper Incontinent Incontinent External Catheter External Catheter # Voids 2 - Exam Head normocephalic and atraumatic Neck supple no JVD no goiter Lungs clear to auscultation bilaterally no wheezing or crackles Heart regular rate and rhythm S1-S2, no rub or gallop Abdomen is soft nontender nondistended positive bowel sounds no hepatosplenomegaly Extremities no edema Neuro alert and orientated to 3 - Labs CBC & Chem 7: 12/15/22 06:29 12/15/22 06:29 Labs: Microbiology - Last 24 Hours (Table) 12/12/22 17:07 Blood Culture - Preliminary Blood Assessment and Plan Assessment: 1. Generalized weakness secondary to UTI pneumonia 2. Urinary tract infection. Urine culture ordered 3. Pneumonia. Repeat 2 view chest x-ray ordered. procalcitonin level ordered patient started on IV antibiotics 4. History of coronary artery disease with previous stent placement 5. History of hyperlipidemia 6. History of essential hypertension 7. History of prostate cancer 8. Ex-smoker DVT prophylaxis Lovenox. GI prophylaxis Protonix Infectious disease and pulmonary services consulted Neurology services following MRI of the brain ordered per neurology per neurology
--- NOTE | 2022-12-16 12:46 | P.PN ---
Subjective Progress Note Date: 12/16/22 Principal diagnosis: Urinary tract infection Patient is a 82-year-old male with a past medical history significant for hypertension hyperlipidemia prostate disorder coronary disease and did have history of incontinent urine and did have external Catheter patient presenting to the hospital yesterday afternoon for evaluation of weakness and multiple falls , patient did have a urinary symptoms positive UA concerning for symptomatic UTI. On today's evaluation and that is 12/16/2022, the patient denies any fever or any chills, the patient is complaining of feeling weak the patient, the patient is breathing comfortably on room air, which denies chest pain shortness of breath or cough no abdominal pain and no diarrhea. Patient did have a hemoglobin of 13.6, white count is 6.3, creatinine 0.92 as of yesterday no blood draw today, blood and urine cultures so far negative Objective - Vital Signs Vital signs: Vital Signs Temp 98.4 F 12/16/22 07:08 Pulse 62 12/16/22 07:08 Resp 18 12/16/22 07:08 BP 189/84 12/16/22 08:29 Pulse Ox 97 12/16/22 07:08 FiO2 Intake & Output 12/15/22 12/16/22 12/16/22 18:59 06:59 18:59 Output Total 950 Balance -950 Output: Urine 950 Other: Voiding Method Diaper Diaper Incontinent Incontinent External Catheter External Catheter # Voids 2 - Exam GENERAL DESCRIPTION: An elderly male up in the chair in no distress RESPIRATORY SYSTEM: Unlabored breathing , decreased breath sounds at bases HEART: S1 S2 regular rate and rhythm , ABDOMEN: Soft , no tenderness EXTREMITIES: No edema feet - Labs CBC & Chem 7: 12/15/22 06:29 12/15/22 06:29 Labs: Microbiology - Last 24 Hours (Table) 12/12/22 17:07 Blood Culture - Preliminary Blood Assessment and Plan (1) UTI (urinary tract infection) Current Visit: Yes Status: Acute Code(s): N39.0 - URINARY TRACT INFECTION, SITE NOT SPECIFIED SNOMED Code(s): 85981283 Plan: 1patient was in the hospital with weakness and falls patient did have a positive UA did have a history of urinary incontinence with external catheter some urinary symptoms dark urine high clinical suspicious for symptomatic UTI patient currently on room air did not have significant respiratory symptoms clinical suspicion is low for pneumonia with a chest x-ray repeat was negative for acute cardiopulmonary process. 2patient did have some clinical improvement and culture had been negative so far 3- patient to continue with Rocephin and monitor clinical course closely Dictation was produced using [employer] dictation software. please excuse any grammatical, word or spelling errors. Time with Patient: Less than 30
[2022-12-16 12:58] LABS: Basophils # (A) 0.05 X 10*3/uL (0.00-0.10); Basophils % (A) 0.6 %; Eosinophils # (A) 0.51 X 10*3/uL (0.04-0.35); Eosinophils % (A) 5.8 %; HCT 38.8 % (39.6-50.0); HGB 13.8 d/dL (13.0-17.0); Lymphocytes # (A) 2.13 X 10*3/uL (0.90-5.00); Lymphocytes % (A) 24.3 %; MCH 36.3 pg (27.0-32.0); MCHC 35.6 d/dL (32.0-37.0); MCV 102.1 FL (80.0-97.0); Mean Platelet Volume 10.6 FL (9.5-12.2); Monocytes # (A) 0.64 X 10*3/uL (0.20-1.00); Monocytes % (A) 7.3 %; NRBC Per 100 WBC 0 X 10*3/uL (0.00-0.01); Neutrophils # (A) 5.42 X 10*3/uL (1.80-7.70); Neutrophils % (A) 61.8 %; Platelet Count 193 X 10*3/uL (140-440); RDW 12.6 % (11.5-14.5); WBC 8.77 X 10*3/uL (4.50-10.00)
--- NOTE | 2022-12-16 12:58 | P.PN ---
Subjective Progress Note Date: 12/16/22 82-year-old male patient, lives in an assisted living, presented with generalized weakness of several weeks' duration. He was also having frequent falls. There was concern for pneumonia and for that reason pulmonary consultation was requested. The chest x-ray that was done in emergency showed a questionable right lower lobe airspace disease. There is also suspected UTI and the patient was started on a combination of Rocephin and Zithromax. The patient is currently on room air oxygen with a pulse ox of 97%. Hemodynamically stable. No significant cough or sputum production. No chest pain. No hemoptysis or pleurisy. CAT scan of the head showed no acute intracranial process that showed some chronic nonspecific white matter ischemic changes. He is known to have COPD, hypertension, hyperlipidemia, sleep apnea and previous history of prostate cancer treated by surgery and radiation. He has chronic urinary incontinence. No leukocytosis. No hypoxemia. Renal function stable with a BUN of 18 and a creatinine of 0.9. LFTs are normal. He does have some mild elevation of CPK related to fall. The patient is seen today 12/14/2022 in follow-up on the regular medical floor. He is awake and alert in no acute distress. He is maintaining good O2 saturations in the 90s on room air. His pro calcitonin was 0.03. He is currently on Rocephin and azithromycin. He has chronic Cohen in place. Recurrent UTIs. Chest x-ray revealed no acute pulmonary disease. White count 6.9. Hemoglobin 12.9. Platelets 191. Sodium 138. Potassium 3.9. Bicarb 23. BUN 15. Creatinine 1.0. Glucose 104. Urine culture pending. The patient seen today 12/15/2022 in follow-up on the regular medical floor. He is awake and alert in no acute distress. His pro calcitonin 0.03. Urine culture shows no growth. He remains on Rocephin. He is maintaining good O2 saturations in the 90s on room air. White count 6.3. Hemoglobin 13.6. Sodium 136. Potassium 3.9. Bicarb 21. BUN 15. Creatinine 0.92. Glucose 105. Remains quite weak. MRI of the brain and lumbar spine are pending. The patient is seen today 12/16/2022 in follow-up on the regular medical floor. He is currently sitting up in a chair at the bedside. Awake and alert in no acute distress. Maintaining good O2 saturations in the 90s on room air. He's been afebrile. Somewhat hypertensive. Blood culture pending. Urine culture revealed no growth. Plan is for MRI of the brain and the lumbar spine today. Objective - Vital Signs Vital signs: Vital Signs Temp 98.4 F 12/16/22 07:08 Pulse 62 12/16/22 07:08 Resp 18 12/16/22 07:08 BP 189/84 12/16/22 08:29 Pulse Ox 97 12/16/22 07:08 FiO2 Intake & Output 12/15/22 12/16/22 12/16/22 18:59 06:59 18:59 Output Total 950 Balance -950 Output: Urine 950 Other: Voiding Method Diaper Diaper Incontinent Incontinent External Catheter External Catheter # Voids 2 - Exam Gen. appearance reveals a pleasant 82-year-old male, sitting up in a chair, no acute distress, on room air. Head exam was generally normal. There was no scleral icterus or corneal arcus. Mucous membranes were moist. Neck was supple and without jugular venous distension, thyromegaly, or carotid bruits. Carotids were easily palpable bilaterally. There was no adenopathy. Lungs sounds are diminished and they are clear with no rhonchi, wheeze or dullness. Cardiac exam revealed the PMI to be normally situated and sized. The rhythm was regular. The first and second heart sounds were normal and physiologic splitting of the second heart sound was noted. There were no murmurs, rubs, clicks, or gallops. Abdominal exam revealed normal bowel sounds. The abdomen was soft, non-tender, and without masses, organomegaly, or appreciable enlargement of the abdominal aorta. Examination of the extremities revealed easily palpable radial, femoral and pedal pulses. There was no cyanosis, clubbing or edema. Examination of the skin revealed no evidence of significant rashes, suspicious appearing nevi or other concerning lesions. Neurologically the patient has generalized weakness. No focal neurological deficits. No cranial deficits. - Labs CBC & Chem 7: 12/15/22 06:29 12/15/22 06:29 Labs: Microbiology - Last 24 Hours (Table) 12/12/22 17:07 Blood Culture - Preliminary Blood Assessment and Plan Assessment: COPD, inactive and stable, no evidence of pneumonia based on review of the chest x-rays. No leukocytosis. No hypoxemia. No fever. Pro-calcitonin negative. Generalized global weakness of unclear etiology. Overall, there is significant medical debility. Frequent falls. MRI of the brain and lumbar spine pending Mild elevation of CPK secondary to falls Coronary artery disease with previous coronary stenting History of prostate cancer Hypertension Hyperlipidemia Urinary incontinence Previous history of GI bleed Obstructive sleep apnea Hiatal hernia Plan: The patient was seen and evaluated Medications reviewed Awaiting MRI of the brain and lumbar spine The plan is for subacute rehab at discharge We will continue to follow I have personally seen and examined the patient, performed the documentation and the assessment and plan as written. Number of minutes spent on the visit: 10.
[2022-12-16 13:28] LABS: ALT 18 U/L (10-49); AST 23 U/L (14-35); Albumin 4.2 d/dL (3.8-4.9); Albumin/Globulin Ratio 1.91 Ratio (1.60-3.17); Alkaline Phosphatase 72 U/L (41-126); Blood Urea Nitrogen 14.1 mg/dL (9.0-27.0); Calcium 9.5 mg/dL (8.7-10.3); Chloride 104 mmol/L (96-109); Globulin 2.2 d/dL (1.6-3.3); Glucose 101 mg/dL (70-110); Potassium 4.2 mmol/L (3.5-5.5); Sodium 138 mmol/L (135-145); Total Bilirubin 0.3 mg/dL (0.3-1.2); Total Protein 6.4 d/dL (6.2-8.2)
--- NOTE | 2022-12-16 16:09 | MR ---
EXAMINATION TYPE: MR brain wo/w con DATE OF EXAM: 12/16/2022 1:33 PM CLINICAL INDICATION:Male, 82 years old with history of falls with generalized weakness. ?NPH; Confus ion, weakness. COMPARISON: CT 12/12/2022 TECHNIQUE: Multi planar, multi sequence imaging was performed through the brain including: T1, T2, In version recovery, susceptibility weighted imaging and gradient echo imaging and Diffusion weighted im aging. The patient was then given intravenous contrast and multi planar, T1 fat-saturation images wer e obtained. IV Contrast: 9 cc Gadavist FINDINGS: Cerebral atrophy with partial dilation of the ventricular system. Dilation to the ventricle s Abdul index 0.34. Diffusion-weighted imaging shows no evidence of restricted diffusion to suggest a cute/subacute infarct. Intracranial arterial flow voids are maintained. Midline structures show no ab normality. Scattered foci of high T2 signal intensity are seen within the periventricular white matte r. The susceptibility weighted images do not reveal any evidence for micro-hemorrhage. After administ ration of gadolinium, no abnormal enhancement is seen. The bone marrow signal is within normal limits. Paranasal sinuses and mastoid air cells: Trace bilateral mastoid air cell effusions. Visualized orbits: Bilateral aphakia. IMPRESSION: 1. Generalized atrophy with dilation to the ventricular system, correlate with elevated Abdul index c orrelate for normal pressure hydrocephalus. No evidence of intracranial mass, acute/subacute infarct, or abnormal enhancement. 2. Nonspecific white matter changes, likely related to small vessel ischemic disease 3. Trace bilateral mastoid air cell effusions.
--- NOTE | 2022-12-16 16:36 | MR ---
EXAMINATION TYPE: MR lumbar spine wo con DATE OF EXAM: 12/16/2022 1:34 PM COMPARISON: CT lumbar spine 11/18/2022. CLINICAL INDICATION: Male, 82 years old with history of leg weakness with falls.; Falls with generali zed weakness. TECHNIQUE: Multi planar, multi sequence imaging was performed utilizing: T1-weighted, T2-weighted, a nd turbo inversion recovery imaging of the lumbar spine. IV Contrast: None. FINDINGS: Alignment: The lumbar vertebral bodies have preserved heights and alignment. Cord: The conus medullaris and the distal spinal cord appear unremarkable with regards to their signa l intensity and morphology. Bones/Discs: High inversion recovery signal seen within a majority of the anterior and middle portion s of the L4 vertebral body with associated low T1 signal. Additional abnormal T1 signal within the L3 vertebral body and anterior aspect of L5 vertebral body all correlating with areas of sclerosis on C T on 12/06/2022. Multilevel disc degeneration changes throughout the spine with facet joint arthropath y scattered osteophytes and disc space narrowing with disc desiccation at multiple levels. T12-L1: No evidence of significant spinal canal stenosis or neural foraminal stenosis. L1-L2: No evidence of significant spinal canal stenosis or neural foraminal stenosis. L2-L3: Disc bulge and facet joint arthropathy result in mild spinal canal and mild bilateral neural f oraminal stenosis. L3-L4: No evidence of significant spinal canal stenosis. Facet joint arthropathy mild bilateral neura l foraminal stenosis. L4-L5: Disc bulge, ligamentum flavum buckling and facet joint arthropathy result in mild to moderate spinal canal and moderate bilateral neural foraminal stenosis. Trace bilateral facet joint effusions. L5-S1: The disc is rounded posterior morphology without significant spinal canal stenosis. Facet join t arthropathy with mild right and moderate left neural foraminal stenosis. No significant spinal canal or neural foraminal stenosis in the remainder of the visualized levels. IMPRESSION: 1. 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 2. No evidence for significant spinal canal stenosis. 3. Mild disc degeneration with associated osteoarthritic changes worse at L5 4 L5 with ligamentum fl avum buckling and mild to moderate mild to moderate spinal canal stenosis and moderate bilateral neur al foraminal stenosis. Additional trace bilateral facet joint effusions.
[2022-12-16] MEDS: SODIUM CHLORIDE 0.9% 1,000 ML IV SCH (19:38)
[2022-12-16] MEDS: MELATONIN 5 MG TABLET PO SCH (22:39)
[2022-12-16] MEDS: PRAMIPEXOLE 1 MG TAB PO SCH (22:39)
[2022-12-17] MEDS: SODIUM CHLORIDE 0.9% 1,000 ML IV SCH ×2 (07:36→16:38)
[2022-12-17] MEDS: GABAPENTIN 300 MG CAP PO SCH (08:37)
[2022-12-17] MEDS: LOSARTAN 50 MG TAB PO SCH (08:37)
[2022-12-17] MEDS: LEVOTHYROXINE 100 MCG TAB PO SCH (08:37)
[2022-12-17] MEDS: PANTOPRAZOLE 40 MG TABLET PO SCH (08:37)
[2022-12-17] MEDS: CYANOCOBALAMIN 500 MCG TAB PO SCH (08:37)
[2022-12-17] MEDS: LORazepam 0.5 MG TAB PO SCH (08:37)
[2022-12-17] MEDS: MEGESTROL 40 MG TAB PO SCH (08:38)
[2022-12-17] MEDS: ASPIRIN 81 MG PO SCH (08:38)
[2022-12-17] MEDS: CHOLECALCIFEROL 25 MCG (1000 IU) TABLET PO SCH (08:38)
[2022-12-17] MEDS: MULTIVITAMINS, THERA 1 EACH TAB PO SCH (08:38)
[2022-12-17] MEDS: ATORVASTATIN 40 MG TAB PO SCH (08:38)
[2022-12-17] MEDS: VIT A,C & E-LUTEIN-MINERALS 1 EACH TAB PO SCH (08:38)
[2022-12-17] MEDS: amLODIPine 5 MG TAB PO SCH (08:38)
[2022-12-17] MEDS: ISOSORBIDE MONONITRATE ER 30 MG TAB.ER.24H PO SCH (08:38)
[2022-12-17] MEDS: ENOXAPARIN 40 MG/0.4 ML SYRINGE SQ SCH (08:39)
[2022-12-17] MEDS: ENZALUTAMIDE 120 MG PO SCH (08:39)
[2022-12-17] MEDS: BICALUTAMIDE 50 MG TAB PO SCH (08:39)
[2022-12-17 13:20] LABS: Basophils # (A) 0.04 X 10*3/uL (0.00-0.10); Basophils % (A) 0.5 %; Eosinophils # (A) 0.41 X 10*3/uL (0.04-0.35); Eosinophils % (A) 5.1 %; HCT 40.2 % (39.6-50.0); Lymphocytes # (A) 1.92 X 10*3/uL (0.90-5.00); Lymphocytes % (A) 23.9 %; MCH 35.5 pg (27.0-32.0); MCHC 34.8 d/dL (32.0-37.0); Mean Platelet Volume 10.2 FL (9.5-12.2); Monocytes # (A) 0.65 X 10*3/uL (0.20-1.00); Monocytes % (A) 8.1 %; NRBC Per 100 WBC 0 X 10*3/uL (0.00-0.01); Neutrophils % (A) 62.2 %; Platelet Count 208 X 10*3/uL (140-440); RBC 3.94 X 10*6/uL (4.40-5.60); RDW 12.7 % (11.5-14.5); WBC 8.04 X 10*3/uL (4.50-10.00)
--- NOTE | 2022-12-17 13:30 | P.PN ---
Subjective Progress Note Date: 12/17/22 82-year-old male patient, lives in an assisted living, presented with generalized weakness of several weeks' duration. He was also having frequent falls. There was concern for pneumonia and for that reason pulmonary consultation was requested. The chest x-ray that was done in emergency showed a questionable right lower lobe airspace disease. There is also suspected UTI and the patient was started on a combination of Rocephin and Zithromax. The patient is currently on room air oxygen with a pulse ox of 97%. Hemodynamically stable. No significant cough or sputum production. No chest pain. No hemoptysis or pleurisy. CAT scan of the head showed no acute intracranial process that showed some chronic nonspecific white matter ischemic changes. He is known to have COPD, hypertension, hyperlipidemia, sleep apnea and previous history of prostate cancer treated by surgery and radiation. He has chronic urinary incontinence. No leukocytosis. No hypoxemia. Renal function stable with a BUN of 18 and a creatinine of 0.9. LFTs are normal. He does have some mild elevation of CPK related to fall. The patient is seen today 12/14/2022 in follow-up on the regular medical floor. He is awake and alert in no acute distress. He is maintaining good O2 saturations in the 90s on room air. His pro calcitonin was 0.03. He is currently on Rocephin and azithromycin. He has chronic Cohen in place. Recurrent UTIs. Chest x-ray revealed no acute pulmonary disease. White count 6.9. Hemoglobin 12.9. Platelets 191. Sodium 138. Potassium 3.9. Bicarb 23. BUN 15. Creatinine 1.0. Glucose 104. Urine culture pending. The patient seen today 12/15/2022 in follow-up on the regular medical floor. He is awake and alert in no acute distress. His pro calcitonin 0.03. Urine culture shows no growth. He remains on Rocephin. He is maintaining good O2 saturations in the 90s on room air. White count 6.3. Hemoglobin 13.6. Sodium 136. Potassium 3.9. Bicarb 21. BUN 15. Creatinine 0.92. Glucose 105. Remains quite weak. MRI of the brain and lumbar spine are pending. The patient is seen today 12/16/2022 in follow-up on the regular medical floor. He is currently sitting up in a chair at the bedside. Awake and alert in no acute distress. Maintaining good O2 saturations in the 90s on room air. He's been afebrile. Somewhat hypertensive. Blood culture pending. Urine culture revealed no growth. Plan is for MRI of the brain and the lumbar spine today. The patient is seen today 12/17/2022 in follow-up on the regular medical floor. He sitting up in a chair. Awake and alert in no acute distress. Continues to maintain good O2 saturations in the 90s on room air. Urine and blood cultures pending. White count 8.0. Hemoglobin 14.0. Platelets 208. MRI of the brain revealed no evidence of intracranial mass, acute/subacute infarct or abnormal enhancement. MRI of the lumbar spine revealed evidence of prostate metastatic disease involving L3, L4 and L5. Mild disc degeneration with associated osteoarthritic changes worse at L4-L5 with ligamentum flavum buckling and mild to moderate spinal canal stenosis and moderate bilateral neural foraminal stenosis. Additional trace bilateral facet joint effusions. Objective - Vital Signs Vital signs: Vital Signs Temp 97.4 F L 12/17/22 08:00 Pulse 76 12/17/22 08:00 Resp 16 12/17/22 08:00 BP 169/77 12/17/22 08:00 Pulse Ox 95 12/17/22 08:00 FiO2 Intake & Output 12/16/22 12/17/22 12/17/22 18:59 06:59 18:59 Output Total 200 350 Balance -200 -350 Output: Urine 200 350 Other: Voiding Method External Catheter External Catheter External Catheter - Exam GENERAL EXAM: Alert, pleasant 82-year-old gentleman, in a chair, on room air, comfortable in no apparent distress. HEAD: Normocephalic. EYES: Normal reaction of pupils, equal size. NOSE: Clear with pink turbinates. THROAT: No erythema or exudates. NECK: No masses, no JVD. CHEST: No chest wall deformity. LUNGS: Equal air entry with no crackles, wheeze, rhonchi or dullness. CVS: S1 and S2 normal with no audible murmur, regular rhythm. ABDOMEN: No hepatosplenomegaly, normal bowel sounds, no guarding or rigidity. SPINE: No scoliosis or deformity SKIN: No rashes CENTRAL NERVOUS SYSTEM: No focal deficits, tone is normal in all 4 extremities. EXTREMITIES: There is no peripheral edema. No clubbing, no cyanosis. Peripheral pulses are intact. - Labs CBC & Chem 7: 12/17/22 06:45 12/16/22 06:56 Labs: Abnormal Lab Results - Last 24 Hours (Table) 12/16/22 12/17/22 Range/Units 06:56 06:45 RBC 3.94 L (4.40-5.60) X 10*6/uL MCV 102.0 H (80.0-97.0) FL MCH 35.5 H (27.0-32.0) pg Eosinophils # 0.41 H (0.04-0.35) X 10*3/uL Carbon Dioxide 21.0 L (21.6-31.8) mmol/L Anion Gap 13.00 H (4.00-12.00) mmol/L Microbiology - Last 24 Hours (Table) 12/12/22 17:07 Blood Culture - Preliminary Blood Assessment and Plan Assessment: COPD, inactive and stable, no evidence of pneumonia based on review of the chest x-rays. No leukocytosis. No hypoxemia. No fever. Pro-calcitonin negative. Generalized global weakness of unclear etiology. Overall, there is significant medical debility. MRI of the lumbar spine revealed evidence of prostate metastatic disease involving L3, L4 and L5. Mild disc degeneration with associated osteoarthritic changes worse at L4-L5 with ligamentum flavum buckling and mild to moderate spinal canal stenosis and moderate bilateral neural foraminal stenosis. Additional trace bilateral facet joint effusions. Frequent falls. MRI of the brain revealed no acute abnormality. Mild elevation of CPK secondary to falls Coronary artery disease with previous coronary stenting History of prostate cancer Hypertension Hyperlipidemia Urinary incontinence Previous history of GI bleed Obstructive sleep apnea Hiatal hernia Plan: The patient was seen and evaluated Medications and labs reviewed MRI of the brain and lumbar spine reviewed Orthopedics consulted The plan is for subacute rehab at discharge I have personally seen and examined the patient, performed the documentation and the assessment and plan as written. Number of minutes spent on the visit: 10.
--- NOTE | 2022-12-17 14:30 | P.PN ---
Subjective Progress Note Date: 12/17/22 Principal diagnosis: Urinary tract infection Patient is a 82-year-old male with a past medical history significant for hypertension hyperlipidemia prostate disorder coronary disease and did have history of incontinent urine and did have external Catheter patient presenting to the hospital yesterday afternoon for evaluation of weakness and multiple falls , patient did have a urinary symptoms positive UA concerning for symptomatic UTI. On today's evaluation and that is 12/17/2022, the patient remains to be febrile , the patient is breathing comfortably on room air, the patient denies chest pain shortness of breath or cough no abdominal pain and no diarrhea. Patient did have a hemoglobin of 14.0, white count is 8.04 creatinine is 1.0 blood and urine cultures have been negative so far patient did have MRI of the lumbar spine did not show any evidence of discitis or abscess, MRI of the brain generalized atrophy and nonspecific white matter changes Objective - Vital Signs Vital signs: Vital Signs Temp 97.4 F L 12/17/22 08:00 Pulse 76 12/17/22 08:00 Resp 16 12/17/22 08:00 BP 169/77 12/17/22 08:00 Pulse Ox 95 12/17/22 08:00 FiO2 Intake & Output 12/16/22 12/17/22 12/17/22 18:59 06:59 18:59 Output Total 200 350 Balance -200 -350 Output: Urine 200 350 Other: Voiding Method External Catheter External Catheter External Catheter - Exam GENERAL DESCRIPTION: An elderly male up in the chair in no distress RESPIRATORY SYSTEM: Unlabored breathing , decreased breath sounds at bases HEART: S1 S2 regular rate and rhythm , ABDOMEN: Soft , no tenderness EXTREMITIES: No edema feet - Labs CBC & Chem 7: 12/17/22 06:45 12/16/22 06:56 Labs: Abnormal Lab Results - Last 24 Hours (Table) 12/16/22 12/16/22 Range/Units 06:56 06:56 RBC 3.80 L (4.40-5.60) X 10*6/uL Hct 38.8 L (39.6-50.0) % MCV 102.1 H (80.0-97.0) FL MCH 36.3 H (27.0-32.0) pg Eosinophils # 0.51 H (0.04-0.35) X 10*3/uL Carbon Dioxide 21.0 L (21.6-31.8) mmol/L Anion Gap 13.00 H (4.00-12.00) mmol/L Microbiology - Last 24 Hours (Table) 12/12/22 17:07 Blood Culture - Preliminary Blood Assessment and Plan (1) UTI (urinary tract infection) Current Visit: Yes Status: Acute Code(s): N39.0 - URINARY TRACT INFECTION, SITE NOT SPECIFIED SNOMED Code(s): 23921930 Plan: 1patient was in the hospital with weakness and falls patient did have a positive UA did have a history of urinary incontinence with external catheter s ome urinary symptoms dark urine high clinical suspicious for symptomatic UTI patient currently on room air did not have significant respiratory symptoms clinical suspicion is low for pneumonia with a chest x-ray repeat was negative for acute cardiopulmonary process. 2patient did have some clinical improvement and culture had been negative so far 3- patient to continue with Rocephin while inpatient however can be discontinued on discharge Dictation was produced using Numerate dictation software. please excuse any grammatical, word or spelling errors. Time with Patient: Less than 30
--- NOTE | 2022-12-17 15:41 | P.CONS ---
History of Present Illness - Reason for Consult Consult date: 12/17/22 metastatic prostate cancer Requesting physician: Gio Ledesma - Chief Complaint falls, confusion - History of Present Illness Mr. Frederick is a pleasantly confused 82 yo with PMH of hypothyroidism, HTN, hyperlipidemia, GERD, hydrocephalus, we have been asked to see because of metastatic prostate cancer. Info comes from pt and family. He was diagnosed in 2019, has been seeing Dr. Johnson for treatment, it has spread to the bones, on xtandi, was seen 12/07 and his dose was decreased due to symptoms-fatigue, weakness-his PSA decreased by half. Unknown if what other meds pt is receiving. Pt currently admitted with weakness and falls, UA was suspicious, abx ordered. He has been followed by Neurology in the past for known hydrocephalus, previously asymptomatic. Pt has been falling more recently, he has a bruise on his left knee. He has had incontinence of urine, been on a catheter for quite some time per family. He denies incontinence of stool. Review of Systems ROS unobtainable: due to mental status Past Medical History Past Medical History: Coronary Artery Disease (CAD), Cancer, GERD/Reflux, GI Bleed, Hyperlipidemia, Hypertension, Prostate Disorder, Sleep Apnea/CPAP/BIPAP, Thyroid Disorder Additional Past Medical History / Comment(s): PROSTATE CANCER ([place]URGERY & RADIATION [place] (2011) , hiatal hernia, constipation, hx ulcer yrs ago, INCONTINENT URINE-USES EXTERNAL MALE CATHETER, occasional dizziness."spinal tap done feb 12 2022 & MRI "water on the brain"-following with Dr Parkinson and specialist-ringing carolyn ear History of Any Multi-Drug Resistant Organisms: None Reported Past Surgical History: Heart Catheterization With Stent, Hernia Repair, Prostate Surgery, Tonsillectomy Additional Past Surgical History / Comment(s): colonoscopy, surgery for artificial urethral sphincter inserted and removed., carpal tunnel-left, nasal surgery. Past Anesthesia/Blood Transfusion Reactions: No Reported Reaction Date of Last Stent Placement:: 2001 Past Psychological History: No Psychological Hx Reported Smoking Status: Former smoker Past Alcohol Use History: None Reported Past Drug Use History: None Reported - Past Family History Sister(s) Family Medical History: Cancer Brother(s) Family Medical History: Cancer, CVA/TIA Medications and Allergies Home Medications Medication Instructions Recorded Confirmed Type Multivit-Min/FA/Lycopen/Lutein 1 tab PO DAILY 11/05/15 12/12/22 History [Centrum Silver Tablet] amLODIPine [Norvasc] 5 mg PO DAILY 11/05/15 12/12/22 History Aspirin [Adult Low Dose Aspirin EC] 81 mg PO DAILY 08/27/16 12/12/22 History Losartan [Cozaar] 50 mg PO DAILY 09/22/17 12/12/22 History Omeprazole [PriLOSEC] 20 mg PO DAILY 09/22/17 12/12/22 History Nitroglycerin Sl Tabs [Nitrostat] 0.4 mg SUBLINGUAL Q5M PRN #25 tab 09/30/17 12/12/22 Rx Albuterol Inhaler [Ventolin Hfa 2 puff INHALATION RT-Q6H PRN 09/04/19 12/12/22 History Inhaler] Atorvastatin [Lipitor] 40 mg PO DAILY 09/04/19 12/12/22 History Fish Oil/Dha/Epa [Fish Oil 1,200 1 cap PO DAILY 09/04/19 12/12/22 History mg Fish Oil] Levothyroxine Sodium [Levoxyl] 150 mcg PO DAILY 09/04/19 12/12/22 History Isosorbide Mononitrate ER [Imdur] 30 mg PO DAILY 06/28/20 12/12/22 History Acetaminophen [Tylenol Extra 500 - 1,000 mg PO Q6H PRN 07/03/20 12/12/22 History Strength] Bicalutamide [Casodex] 50 mg PO DAILY 03/24/22 12/14/22 History Pramipexole [Mirapex] 1 mg PO HS 03/24/22 12/14/22 History Vit C/E/Zn/Coppr/Lutein/Zeaxan 2 cap PO DAILY 03/24/22 12/12/22 History [Preservision Areds 2 Softgel] Cholecalciferol [Vitamin D3 (25 50 mcg PO DAILY 12/12/22 12/12/22 History Mcg = 1000 Iu)] Enzalutamide [Xtandi] 160 mg PO DAILY 12/12/22 12/14/22 History Gabapentin 300 mg PO DAILY 12/12/22 12/12/22 History LORazepam [Ativan] 0.5 mg PO DAILY 12/12/22 12/12/22 History Megestrol Acetate 20 mg PO DAILY 12/12/22 12/12/22 History Allergies Allergy/AdvReac Type Severity Reaction Status Date / Time venom-honey bee Allergy Severe Swelling Verified 12/12/22 16:02 [bee venom (honey bee)] latex Allergy Rash/Hives Verified 12/12/22 16:02 Physical Exam Vitals: Vital Signs Temp Pulse Resp BP Pulse Ox 12/17/22 13:55 97.2 F L 64 15 179/74 92 L 12/17/22 08:00 97.4 F L 76 16 169/77 95 12/17/22 01:30 98.7 F 55 L 17 180/91 97 12/16/22 19:14 97.9 F 58 L 16 169/77 93 L Intake and Output 12/16/22 12/17/22 12/17/22 22:59 06:59 14:59 Output Total 200 350 Balance -200 -350 Output: Urine 200 350 Other: Voiding Method External Catheter External Catheter - Constitutional General appearance: average body habitus, cooperative, no acute distress - EENT Eyes: anicteric sclerae, EOMI ENT: hearing grossly normal, normal oropharynx - Neck Neck: no lymphadenopathy - Respiratory Respiratory: bilateral: CTA - Cardiovascular Rhythm: regular Heart sounds: normal: S1, S2 Abnormal Heart Sounds: systolic murmur leg Peripheral Edema: right: None, left: 1+ - Gastrointestinal General gastrointestinal: no absent bowel sounds, no decreased bowel sounds, no distended, no hepatomegaly, no hyperactive bowel sounds, normal bowel sounds, no organomegaly, no rigid, no scaphoid, soft, no splenomegaly, no tenderness, no umbilical hernia, no ventral hernia - Integumentary Integumentary: normal - Neurologic pt can feel soft touch on BLE Neurologic: CNII-XII intact (grossly) - Musculoskeletal Musculoskeletal: generalized weakness - Psychiatric Pt calm, awake oriented to self, place. Mild confusion in general. Results CBC & Chem 7: 12/17/22 06:45 12/16/22 06:56 Labs: Abnormal Lab Results - Last 24 Hours (Table) 12/17/22 Range/Units 06:45 RBC 3.94 L (4.40-5.60) X 10*6/uL MCV 102.0 H (80.0-97.0) FL MCH 35.5 H (27.0-32.0) pg Eosinophils # 0.41 H (0.04-0.35) X 10*3/uL Microbiology - Last 24 Hours (Table) 12/12/22 17:07 Blood Culture - Preliminary Blood Comments: L/S MRI report reviewed Chest x-ray: report reviewed CT Scan - head: report reviewed MRI - head: report reviewed Assessment and Plan (1) Prostate cancer metastatic to bone Current Visit: Yes Status: Chronic Priority: Medium Code(s): C61 - MALIGNANT NEOPLASM OF PROSTATE; C79.51 - SECONDARY MALIGNANT NEOPLASM OF BONE SNOMED Code(s): 222065396 (2) Hydrocephalus Current Visit: Yes Status: Chronic Priority: High Code(s): G91.9 - HYDROCEPHALUS, UNSPECIFIED SNOMED Code(s): 906326936 Plan: Metastatic prostate cancer -Known bone mets per pt and family -Back pain. MRI L/S compared with scan 11/18, imaging similar, mets to L3, 4, 5. Orthopedic Surgeon consulted -Cancer treated with Dr. Johnson, last seen 12/07/22. Family reports that xtandi dose was reduced, PSA decreased by half! -Hold today's dose of xtandi-treating UTI. -Consult Dr. Johnson Hydrocephalus -Started seeing Neurologist Dr. Marie late last year -He was asymptomatic at that time and was placed on monitoring -He was due to see Dr. Parkinson 12/14 to establish and f/u, as hydrocephalus is now symptomatic. Neurology following inpt
--- NOTE | 2022-12-17 16:19 | P.PN ---
Subjective Progress Note Date: 12/17/22 I am following-up with patient and he feels about the same. Objective - Vital Signs Vital signs: Vital Signs Temp 97.2 F L 12/17/22 13:55 Pulse 64 12/17/22 13:55 Resp 15 12/17/22 13:55 BP 179/74 12/17/22 13:55 Pulse Ox 92 L 12/17/22 13:55 FiO2 Intake & Output 12/16/22 12/17/22 12/17/22 18:59 06:59 18:59 Output Total 200 350 Balance -200 -350 Output: Urine 200 350 Other: Voiding Method External Catheter External Catheter External Catheter - Exam GENERAL: The patient is sitting in a chair and is not in acute distress. NEUROLOGICAL: Higher mental function: The patient is awake, alert, oriented to self, place and time.He is mildly slow responding. Patient is following simple commands. No aphasia and no neglect. Cranial nerves: The pupils are round, equal and reactive to light. Visual warner are full to confrontation throughout. Extraocular movement is intact no nystagmus is noted. Facial sensation is normal to touch throughout. The facial strength is normal throughout. Hearing is moderate to severely decreased bilate rally to hand rub. Tongue is midline and moved [id number] without any difficulty. No dysarthria is noted. Shoulder shrug is normal bilaterally. Motor: The strength is 5 over 5 throughout uppers. While lowers R/L: Hips 5-/4-, knee 4+/3-4, ankle ankle dorsiflexion 2/3 . ankle plantar flexion 3/3-4. Normal tone and bulk. Has malformed right ankle (bigger ins size compared to left). Cerebellum: Normal finger to nose and unable to perform lowers bilaterally. Sensation: Sensation is normal to touch throughout. Reflexes (right/left): 1+ throughout. Plantars mute on the right and left is downgoing bilaterally. Some of the workup during his hospital visit consisted of: CK level is 354. Vitamin B12: 364 Folate level: 19.40 TSH: 13 and free T4: 1.0 Sodium, calcium, creatinine, magnesium is within normal limits. Urinalysis seems suggestive of underlying urinary tract infection. CT of the head is reported as no acute intracranial process. Nonspecific white matter changes, likely secondary to chronic small vessel ischemic disease. MRI Brain is reported as generalized atrophy with dilation to the ventricular system, correlate with elevated Abdul index correlate for normal pressure hydrocephalus. No evidence of intracranial mass, acute/subacute infarct or abnormal enhancement. Nonspecific white matter changes, likely related to small vessel ischemic disease. Trace bilateral mastoid air cell effusion. MRI Lumbar spine: Evidence of prostate metastitc disease involving L3,L4 and L5 as seen on CT on 11/18/2022. No evidence for significant spinal canal stenosis. Mild disc degeneration with associated osteoarthritic changes worse at L4L5 with ligamentum flavum buckling and mild to moderate spinal canal stenosis and moderate bilateral neural foraminal stenosis. Additional trace bilateral face joint effusion. Of note patient had CT of the head on 11/18/2022 and it's reported as atrophy with chronic appearing periventricular white matter ischemic type changes. No abnormal enhancement. Arachnoid cyst to be present within the anterior po sterior fossa and foramen magnum region. TSH was 5.86. Hemoglobin A1c at that time was 6.1. - Labs CBC & Chem 7: 12/17/22 06:45 12/16/22 06:56 Labs: Abnormal Lab Results - Last 24 Hours (Table) 12/17/22 Range/Units 06:45 RBC 3.94 L (4.40-5.60) X 10*6/uL MCV 102.0 H (80.0-97.0) FL MCH 35.5 H (27.0-32.0) pg Eosinophils # 0.41 H (0.04-0.35) X 10*3/uL Microbiology - Last 24 Hours (Table) 12/12/22 17:07 Blood Culture - Preliminary Blood Assessment and Plan Assessment: This is an 82-year-old gentleman who resides in assisted living facility who presents our facility because of generalized weakness and frequent falls. It seems the patient has underlying hypothryroidism and his recent TSH in begining of 11/2022 is abnormal, has underlying borderline diabetes. Patient endorses chronic lower back pain in the posterior region. On examination seems the patient has bilateral lower extremity weakness right more than left. Recurrent falls and states having generalized weakness but on examination has bilateral lower leg weakness (right > left): It is due to prostate metastatis involving L3, L4 and L5. Patient has known lumbar mets and is on chemotherapy. Also other factors acn be contributing his recurrent falls with generalized weakness are: chemotherapy, uncontrolled hypothyroidism as well as that could be due to his borderline diabetes and underlying Normal pressure hydrocephalus. Probable acute UTI History of Normal pressure hydrocephalus (NPH) and patient was evaluated by Dr. Marie in past and was told no intervention. History of prostate cancer with mets to lumbar involving L3-L5 and is on chemothrapy Low normal vitamin B12: 364 Chronic low back pain. History of CAD Status post stent History of hypothyroidism Hypertension Hyperlipidemia Sleep apnea Plan: Patient has low normal vitamin B12: 364, therefore started him on Vitamin B12 1000mcg daily. It seems he has underlying history of NPH and was evaluated by Dr. Marie (who is currently ) and was told no intervention. Can consider a second n eurosurgeon opinion for [employer] shunt as outpatient if family will like to pursue possible intervention. I consulted Oncology team for prostate cancer with mets to lumbar. PT and OT are consulted We'll defer the rest of the medical management to the primary team Recommend the patient to continue to follow-up with his neurologist (Dr. Parkinson) as outpatient within 3 weeks. The plan is discussed with patient, his daughter (Es) via phone and his nurse. There is no additional neurological work-up. Will sign off. Please reconsult if needed. Time with Patient: Less than 30
--- NOTE | 2022-12-17 16:59 | P.CNOR ---
History of Present Illness - [facility] Consult date: 12/17/22 Requesting physician: Ashley Gan Consult reason: other (Spinal stenosis, prostate cancer mets) History of present illness: Patient is an 82-year-old male who presents to the emergency department on 12/10/2022 for chief complaint of weakness/falls. Orthopedics was consulted for metastatic prostate cancer metastasis to the spine. MRI lumbar spine was performed and that there are lesions at L3, L4, L5. Patient was seen at bedside this morning lying semirecumbent position. Throughout the encounter patient did appear to be very groggy. Patient states that over the past several weeks he has had a number of falls. Patient says he does have a history of back pain. However, once TV and falling over the past couple weeks he has had difficulty getting up out of bed and being able to walk on resumption power. Patient says he has tried to use a cane and a walker but he he says his legs are not able to hold in operative table. Patient denies any previous orthopedic spine surgery. Patient says he did have a left total knee arthroplasty performed Dr. Tapia a couple years ago. Patient states most the pain is in the low back. Patient says there is some radiation down both legs. Patient denies any loss of bowel/bladder control. Patient denies any saddle anesthesia. Patient mentions that he feels the weakness has been getting worse in the legs over the past several months. Patient says he does follow with Dr. Johnson and has had prostate cancer over the past 12 years. Patient denies chest pain, fever, nausea, vomiting, change in vision, loss of bowel/bladder control. Past Medical History Past Medical History: Coronary Artery Disease (CAD), Cancer, GERD/Reflux, GI Bleed, Hyperlipidemia, Hypertension, Prostate Disorder, Sleep Apnea/CPAP/BIPAP, Thyroid Disorder Additional Past Medical History / Comment(s): PROSTATE CANCER ([place]IATION [place] (2011) , hiatal hernia, constipation, hx ulcer yrs ago, INCONTINENT URINE-USES EXTERNAL MALE CATHETER, occasional dizziness."spinal tap done feb 12 2022 & MRI "water on the brain"-following with Dr Parkinson and specialist-ringing carolyn ear History of Any Multi-Drug Resistant Organisms: None Reported Past Surgical History: Heart Catheterization With Stent, Hernia Repair, Prostate Surgery, Tonsillectomy Additional Past Surgical History / Comment(s): colonoscopy, surgery for a rtificial urethral sphincter inserted and removed., carpal tunnel-left, nasal surgery. Past Anesthesia/Blood Transfusion Reactions: No Reported Reaction Date of Last Stent Placement:: 2001 Past Psychological History: No Psychological Hx Reported Smoking Status: Former smoker Past Alcohol Use History: None Reported Past Drug Use History: None Reported - Past Family History Sister(s) Family Medical History: Cancer Brother(s) Family Medical History: Cancer, CVA/TIA Medications and Allergies Home Medications Medication Instructions Recorded Confirmed Type Multivit-Min/FA/Lycopen/Lutein 1 tab PO DAILY 11/05/15 12/12/22 History [Centrum Silver Tablet] amLODIPine [Norvasc] 5 mg PO DAILY 11/05/15 12/12/22 History Aspirin [Adult Low Dose Aspirin EC] 81 mg PO DAILY 08/27/16 12/12/22 History Losartan [Cozaar] 50 mg PO DAILY 09/22/17 12/12/22 History Omeprazole [PriLOSEC] 20 mg PO DAILY 09/22/17 12/12/22 History Nitroglycerin Sl Tabs [Nitrostat] 0.4 mg SUBLINGUAL Q5M PRN #25 tab 09/30/17 12/12/22 Rx Albuterol Inhaler [Ventolin Hfa 2 puff INHALATION RT-Q6H PRN 09/04/19 12/12/22 History Inhaler] Atorvastatin [Lipitor] 40 mg PO DAILY 09/04/19 12/12/22 History Fish Oil/Dha/Epa [Fish Oil 1,200 1 cap PO DAILY 09/04/19 12/12/22 History mg Fish Oil] Levothyroxine Sodium [Levoxyl] 150 mcg PO DAILY 09/04/19 12/12/22 History Isosorbide Mononitrate ER [Imdur] 30 mg PO DAILY 06/28/20 12/12/22 History Acetaminophen [Tylenol Extra 500 - 1,000 mg PO Q6H PRN 07/03/20 12/12/22 History Strength] Bicalutamide [Casodex] 50 mg PO DAILY 03/24/22 12/14/22 History Pramipexole [Mirapex] 1 mg PO HS 03/24/22 12/14/22 History Vit C/E/Zn/Coppr/Lutein/Zeaxan 2 cap PO DAILY 03/24/22 12/12/22 History [Preservision Areds 2 Softgel] Cholecalciferol [Vitamin D3 (25 50 mcg PO DAILY 12/12/22 12/12/22 History Mcg = 1000 Iu)] Enzalutamide [Xtandi] 160 mg PO DAILY 12/12/22 12/14/22 History Gabapentin 300 mg PO DAILY 12/12/22 12/12/22 History LORazepam [Ativan] 0.5 mg PO DAILY 12/12/22 12/12/22 History Megestrol Acetate 20 mg PO DAILY 12/12/22 12/12/22 History Allergies Allergy/AdvReac Type Severity Reaction Status Date / Time venom-honey bee Allergy Severe Swelling Verified 12/12/22 16:02 [bee venom (honey bee)] latex Allergy Rash/Hives Verified 12/12/22 16:02 Physical Examination Inspection: Negative for any open fractures, significant erythema/ecchymosis/open wounds. Sensation: Equal, symmetric, bilaterally intact throughout the upper and lower extremities Palpation: Moderate tenderness patient diffusely throughout the lower lumbar spine at midline and bilaterally in the SI joints. Nontender to palpation throughout rest exam. Range of motion: Patient has full range of motion in bilateral elbows and wrists in flexion/extension. There is limited range of motion bilaterally and shoulders and forward elevation. Patient does have an range of motion throughout bilateral lower extremities in hips, knees, ankles and flexion/extension and dorsiflexion/plantar flexion bilaterally due to weakness and referred pain in the low back Motor: 3/5 in all major motor groups in bilateral lower extremities. 4/5 in all major motor groups bilateral upper extremities Neurovascular status: Radial pulse intact, 2+. Cap refill under 3 seconds in digits upper extremities. Special tests: Negative Homans bilaterally. Negative Annie bilaterally. Negative clonus bilaterally Results - Labs Labs: Abnormal Lab Results - Last 24 Hours (Table) 12/17/22 Range/Units 06:45 RBC 3.94 L (4.40-5.60) X 10*6/uL MCV 102.0 H (80.0-97.0) FL MCH 35.5 H (27.0-32.0) pg Eosinophils # 0.41 H (0.04-0.35) X 10*3/uL Microbiology - Last 24 Hours (Table) 12/12/22 17:07 Blood Culture - Preliminary Blood H & H 12/12/22 12/13/22 12/14/22 Range/Units 13:10 09:54 07:01 Hgb 13.9 13.7 12.9 L (13.0-17.5) gm/dL Hct 40.5 39.6 37.8 L (39.0-53.0) % 12/15/22 12/16/22 12/17/22 Range/Units 06:29 06:56 06:45 Hgb 13.6 13.8 14.0 (13.0-17.5) gm/dL Hct 39.1 38.8 L 40.2 (39.0-53.0) % Coagulation 12/12/22 Range/Units 13:10 INR 0.9 (<1.2) Result Diagrams: 12/17/22 06:45 12/16/22 06:56 - Diagnostic results Lumbar MRI with/without contrast: report reviewed, image reviewed (Metastatic prostate disease present in the lumbar spine vertebral bodies L3, L4, L5. There is evident lumbar spondylosis throughout the lower lumbar spine as well as degenerative disc disease. Negative for any significant spinal canal stenosis.) Assessment and Plan Assessment: 1. Low back pain; bilateral lower extremity weakness; metastatic prostate cancer Plan: 1. Low back pain; bilateral lower extremity weakness; metastatic prostate canc er - MRI lumbar spine does reveal Metastatic prostate disease present in the lumbar spine vertebral bodies L3, L4, L5. There is evident lumbar spondylosis throughout the lower lumbar spine as well as degenerative disc disease. Negative for any significant spinal canal stenosis. Patient does present with significant bilateral lower extremity weakness on exam. I did review the findings of the imaging with my attending, Dr. Nixon. At this time due to the patient's overall medical state, we are not recommending any emergent/urgent orthopedic surgical intervention. We do recommend continued evaluation with rad/onc. Continue conservative measures at this time for orthopedic standpoint with the use of pain medication. No intervention at this time orthopedics. We will continue to be as well as needed. 2. Appreciate medical management 3. Pain management - Tylenol; [place]; gabapentin 4. GI prophylaxis - Protonix 5. DVT prophylaxis - Lovenox; aspirin 6. PT/OT - weightbearing as tolerated with walker and assistance 7. Encourage incentive spirometer use 8. Appreciate consult Time with Patient: Less than 30
[2022-12-17] MEDS: MELATONIN 5 MG TABLET PO SCH (21:23)
[2022-12-17] MEDS: PRAMIPEXOLE 1 MG TAB PO SCH (21:23)
[2022-12-18] MEDS: SODIUM CHLORIDE 0.9% 1,000 ML IV SCH ×2 (04:48→16:50)
[2022-12-18] MEDS: LEVOTHYROXINE 100 MCG TAB PO SCH (06:07)
--- NOTE | 2022-12-18 07:59 | P.GSCN ---
History of Present Illness Consult date: 12/18/22 History of present illness: 82 yo male with metastatic prostate cancer to the bones who is in the hospital for weakness and falls. He is known to Dr Johnson and he is asked to see him He was last seen in the office 10 days ago. He had a radical prostatectomy in 2011 followed by ebrt in 2014. He is now metastatic on lhrh and xtandi. Because of his weaknes Dr Johnson reduced the xtandi from 160 mg to 80 mg per day. Looking at his med list he appears to be still taking the casodex. He does have a history of hydrocephalus. His last psa was 0.12 on 12/02/2022. The patient had an mri of the brain tht doesnot show mets. He had a lumbar mri showing mets to l3/4/5 plus disc disease. He was seen by Dr Nixon who didnt feel surgery was in order but recommended rad onc consultation Review of Systems All systems: negative - Constitutional Denies fever, Denies weight loss - EENT Eyes: denies blurred vision Ears, nose, mouth and throat: Denies dysphagia - Cardiovascular Denies chest pain, Denies shortness of breath - Respiratory Denies cough, Denies 7 - Gastrointestinal Reports as per HPI - Genitourinary Denies dysuria, Denies hematuria - Integumentary Denies rash, Denies unusual bruising - Neurological Denies headaches, Denies syncope - Hematologic/Lymphatic Denies easy bleeding, Denies easy bruising Past Medical History Past Medical History: Coronary Artery Disease (CAD), Cancer, GERD/Reflux, GI Bleed, Hyperlipidemia, Hypertension, Prostate Disorder, Sleep Apnea/CPAP/BIPAP, Thyroid Disorder Additional Past Medical History / Comment(s): PROSTATE CANCER (SURGERY & RADIATION [place] (2011) , hiatal hernia, constipation, hx ulcer yrs ago, INCONTINENT URINE-USES EXTERNAL MALE CATHETER, occasional dizziness."spinal tap done feb 12 2022 & MRI "water on the brain"-following with Dr Parkinson and specialist-janina leon ear History of Any Multi-Drug Resistant Organisms: None Reported Past Surgical History: Heart Catheterization With Stent, Hernia Repair, Prostate Surgery, Tonsillectomy Additional Past Surgical History / Comment(s): colonoscopy, surgery for artificial urethral sphincter inserted and removed., carpal tunnel-left, nasal surgery. Past Anesthesia/Blood Transfusion Reactions: No Reported Reaction Date of Last Stent Placement:: 2001 Past Psychological History: No Psychological Hx Reported Smoking Status: Former smoker Past Alcohol Use History: None Reported Past Drug Use History: None Reported - Past Family History Sister(s) Family Medical History: Cancer Brother(s) Family Medical History: Cancer, CVA/TIA Medications and Allergies Home Medications Medication Instructions Recorded Confirmed Type Multivit-Min/FA/Lycopen/Lutein 1 tab PO DAILY 11/05/15 12/12/22 History [Centrum Silver Tablet] amLODIPine [Norvasc] 5 mg PO DAILY 11/05/15 12/12/22 History Aspirin [Adult Low Dose Aspirin EC] 81 mg PO DAILY 08/27/16 12/12/22 History Losartan [Cozaar] 50 mg PO DAILY 09/22/17 12/12/22 History Omeprazole [PriLOSEC] 20 mg PO DAILY 09/22/17 12/12/22 History Nitroglycerin Sl Tabs [Nitrostat] 0.4 mg SUBLINGUAL Q5M PRN #25 tab 09/30/17 12/12/22 Rx Albuterol Inhaler [Ventolin Hfa 2 puff INHALATION RT-Q6H PRN 09/04/19 12/12/22 History Inhaler] Atorvastatin [Lipitor] 40 mg PO DAILY 09/04/19 12/12/22 History Fish Oil/Dha/Epa [Fish Oil 1,200 1 cap PO DAILY 09/04/19 12/12/22 History mg Fish Oil] Levothyroxine Sodium [Levoxyl] 150 mcg PO DAILY 09/04/19 12/12/22 History Isosorbide Mononitrate ER [Imdur] 30 mg PO DAILY 06/28/20 12/12/22 History Acetaminophen [Tylenol Extra 500 - 1,000 mg PO Q6H PRN 07/03/20 12/12/22 History Strength] Bicalutamide [Casodex] 50 mg PO DAILY 03/24/22 12/14/22 History Pramipexole [Mirapex] 1 mg PO HS 03/24/22 12/14/22 History Vit C/E/Zn/Coppr/Lutein/Zeaxan 2 cap PO DAILY 03/24/22 12/12/22 History [Preservision Areds 2 Softgel] Cholecalciferol [Vitamin D3 (25 50 mcg PO DAILY 12/12/22 12/12/22 History Mcg = 1000 Iu)] Enzalutamide [Xtandi] 160 mg PO DAILY 12/12/22 12/14/22 History Gabapentin 300 mg PO DAILY 12/12/22 12/12/22 History LORazepam [Ativan] 0.5 mg PO DAILY 12/12/22 12/12/22 History Megestrol Acetate 20 mg PO DAILY 12/12/22 12/12/22 History Allergies Allergy/AdvReac Type Severity Reaction Status Date / Time venom-honey bee Allergy Severe Swelling Verified 12/12/22 16:02 [bee venom (honey bee)] latex Allergy Rash/Hives Verified 12/12/22 16:02 Surgical - Exam Vital Signs Temp Pulse Resp BP Pulse Ox 97.7 F 66 18 138/92 95 12/12/22 12:44 12/12/22 12:44 12/12/22 12:44 12/12/22 12:44 12/12/22 12:44 - General well developed, well nourished, moderate pain - Eyes PERRL - ENT no hearing loss - Neck trachea midline - Respiratory normal respiratory effort - Cardiovascular Rhythm: regular - Abdomen Abdomen: soft, non tender - Integumentary no growths - Neurologic normal coordination, normal sensation - Musculoskeletal Weak, low back pain normal posture - Psychiatric oriented to time, oriented to person, oriented to place, speech is normal, memory intact Results - Labs 12/17/22 06:45 12/16/22 06:56 Abnormal Lab Results - Last 24 Hours (Table) 12/17/22 Range/Units 06:45 RBC 3.94 L (4.40-5.60) X 10*6/uL MCV 102.0 H (80.0-97.0) FL MCH 35.5 H (27.0-32.0) pg Eosinophils # 0.41 H (0.04-0.35) X 10*3/uL - Imaging Additional studies: ls spine mri, brain mri Assessment and Plan Assessment: Impression: Metastatic prostate cancer. weakness and falls. Recommendation: hold the xtandi. Stop the casodex. consult with Dr Dodge of radiation oncology
[2022-12-18] MEDS: MULTIVITAMINS, THERA 1 EACH TAB PO SCH (08:20)
[2022-12-18] MEDS: CHOLECALCIFEROL 25 MCG (1000 IU) TABLET PO SCH (08:20)
[2022-12-18] MEDS: ATORVASTATIN 40 MG TAB PO SCH (08:20)
[2022-12-18] MEDS: GABAPENTIN 300 MG CAP PO SCH (08:20)
[2022-12-18] MEDS: ENOXAPARIN 40 MG/0.4 ML SYRINGE SQ SCH (08:20)
[2022-12-18] MEDS: ASPIRIN 81 MG PO SCH (08:20)
[2022-12-18] MEDS: PANTOPRAZOLE 40 MG TABLET PO SCH (08:20)
[2022-12-18] MEDS: amLODIPine 5 MG TAB PO SCH (08:20)
[2022-12-18] MEDS: LORazepam 0.5 MG TAB PO SCH (08:20)
[2022-12-18] MEDS: CYANOCOBALAMIN 500 MCG TAB PO SCH (08:21)
[2022-12-18] MEDS: LOSARTAN 50 MG TAB PO SCH (08:21)
[2022-12-18] MEDS: MEGESTROL 40 MG TAB PO SCH (08:21)
[2022-12-18] MEDS: ISOSORBIDE MONONITRATE ER 30 MG TAB.ER.24H PO SCH (08:21)
[2022-12-18] MEDS: VIT A,C & E-LUTEIN-MINERALS 1 EACH TAB PO SCH (08:22)
--- NOTE | 2022-12-18 10:36 | P.PN ---
Subjective Progress Note Date: 12/18/22 This is an 82-year-old male patient of Dr. Godoy who presents with complaints of increased weakness and falls over the past month. Patient reports he's had just generalized weakness causing him to lose his balance increasing over the past few weeks. Patient has past medical history of coronary artery disease, GERD, GI bleed, hyperlipidemia, hypertension, prostate disorder, thyroid disorder, previous heart cath with stents and ex-smoker. Head CT completed showing no acute intracranial process. Nonspecific white matter changes likely secondary to chronic small vessel ischemic disease. Chest x-ray completed showing right lower lung airspace opacities correlate for pneumonia COPD changes. Hip x-ray completed showing no evidence for acute process mild bilateral hip osteoarthritis. UA positive for urinary tract infection. Vital signs temp 97.5, heart rate 65, respiratory rate 18, blood pressure 146/75 pulse ox 97% on room air. At this time patient will be admitted patient started on IV antibiotics Rocephin and azithromycin. Pulmonary and infectious disease service is consulted PT OT services consulted repeat chest x-ray ordered for a.m. On 12/14/2022 patient was seen and examined on the medical floor he is alert and oriented 3 in no apparent distress he is complaining of cough and complaining of generalized weakness otherwise he denies any complaints there is no fever or chills no headache or dizziness no chest pain no shortness of breath no nausea or vomiting no abdominal pain no diarrhea and no urinary symptoms. On 12/15/2022 patient was seen and examined on the medical floor he is alert and oriented in no apparent distress he is complaining of generalized weakness and cough otherwise he denies any complaints. TSH was elevated at 13. Patient insists that he has been taking his Synthroid 150 g on a daily basis. At this time will increase Synthroid dose to 175 g. Continue with current management otherwise. On 12/16/2022 patient is alert and oriented 3. MRI of the spine has been ordered per neurology services. Patient denies chest pain or shortness of breath. Patient denies nausea vomiting or diarrhea. Patient denies any urinary burning or frequency On 12/18/2022 patient is alert and oriented 3. MRI of the brain completed Reviewed Per neurology. Interventional radiology consulted this time patient denies chest pain or shortness of breath. Patient denies nausea vomiting or diarrhea. Patient denies any urinary burning or frequency.. Objective - Vital Signs Vital signs: Vital Signs Temp 97.8 F 12/18/22 07:21 Pulse 69 12/18/22 07:21 Resp 17 12/18/22 07:21 BP 190/69 12/18/22 07:21 Pulse Ox 96 12/18/22 07:21 FiO2 Intake & Output 12/17/22 12/18/22 12/18/22 18:59 06:59 18:59 Output Total 1400 400 Balance -1400 -400 Output: Urine 1400 400 Other: Voiding Method External Catheter External Catheter External Catheter - Exam Head normocephalic and atraumatic Neck supple no JVD no goiter Lungs clear to auscultation bilaterally no wheezing or crackles Heart regular rate and rhythm S1-S2, no rub or gallop Abdomen is soft nontender nondistended positive bowel sounds no hep atosplenomegaly Extremities no edema Neuro alert and orientated to 3 - Labs CBC & Chem 7: 12/17/22 06:45 12/16/22 06:56 Labs: Abnormal Lab Results - Last 24 Hours (Table) 12/17/22 Range/Units 06:45 RBC 3.94 L (4.40-5.60) X 10*6/uL MCV 102.0 H (80.0-97.0) FL MCH 35.5 H (27.0-32.0) pg Eosinophils # 0.41 H (0.04-0.35) X 10*3/uL Assessment and Plan Assessment: 1. Generalized weakness secondary to UTI pneumonia 2. Urinary tract infection. Urine culture ordered 3. Pneumonia. Repeat 2 view chest x-ray ordered. procalcitonin level ordered patient started on IV antibiotics 4. History of coronary artery disease with previous stent placement 5. History of hyperlipidemia 6. History of essential hypertension 7. History of prostate cancer 8. Ex-smoker DVT prophylaxis Lovenox. GI prophylaxis Protonix Infectious disease and pulmonary services consulted Neurology services following Interventional radiology ordered per neurology MRI completed
--- NOTE | 2022-12-18 12:05 | P.PN ---
Subjective Progress Note Date: 12/18/22 82-year-old male patient, lives in an assisted living, presented with generalized weakness of several weeks' duration. He was also having frequent falls. There was concern for pneumonia and for that reason pulmonary consultation was requested. The chest x-ray that was done in emergency showed a questionable right lower lobe airspace disease. There is also suspected UTI and the patient was started on a combination of Rocephin and Zithromax. The patient is currently on room air oxygen with a pulse ox of 97%. Hemodynamically stable. No significant cough or sputum production. No chest pain. No hemoptysis or pleurisy. CAT scan of the head showed no acute intracranial process that showed some chronic nonspecific white matter ischemic changes. He is known to have COPD, hypertension, hyperlipidemia, sleep apnea and previous history of prostate cancer treated by surgery and radiation. He has chronic urinary incontinence. No leukocytosis. No hypoxemia. Renal function stable with a BUN of 18 and a creatinine of 0.9. LFTs are normal. He does have some mild elevation of CPK related to fall. The patient is seen today 12/14/2022 in follow-up on the regular medical floor. He is awake and alert in no acute distress. He is maintaining good O2 saturations in the 90s on room air. His pro calcitonin was 0.03. He is currently on Rocephin and azithromycin. He has chronic Cohen in place. Recurrent UTIs. Chest x-ray revealed no acute pulmonary disease. White count 6.9. Hemoglobin 12.9. Platelets 191. Sodium 138. Potassium 3.9. Bicarb 23. BUN 15. Creatinine 1.0. Glucose 104. Urine culture pending. The patient seen today 12/15/2022 in follow-up on the regular medical floor. He is awake and alert in no acute distress. His pro calcitonin 0.03. Urine culture shows no growth. He remains on Rocephin. He is maintaining good O2 saturations in the 90s on room air. White count 6.3. Hemoglobin 13.6. Sodium 136. Potassium 3.9. Bicarb 21. BUN 15. Creatinine 0.92. Glucose 105. Remains quite weak. MRI of the brain and lumbar spine are pending. The patient is seen today 12/16/2022 in follow-up on the regular medical floor. He is currently sitting up in a chair at the bedside. Awake and alert in no acute distress. Maintaining good O2 saturations in the 90s on room air. He's been afebrile. Somewhat hypertensive. Blood culture pending. Urine culture revealed no growth. Plan is for MRI of the brain and the lumbar spine today. The patient is seen today 12/17/2022 in follow-up on the regular medical floor. He sitting up in a chair. Awake and alert in no acute distress. Continues to maintain good O2 saturations in the 90s on room air. Urine and blood cultures pending. White count 8.0. Hemoglobin 14.0. Platelets 208. MRI of the brain revealed no evidence of intracranial mass, acute/subacute infarct or abnormal enhancement. MRI of the lumbar spine revealed evidence of prostate metastatic disease involving L3, L4 and L5. Mild disc degeneration with associated osteoarthritic changes worse at L4-L5 with ligamentum flavum buckling and mild to moderate spinal canal stenosis and moderate bilateral neural foraminal stenosis. Additional trace bilateral facet joint effusions. The patient is seen today 12/18/2022 in follow-up on the regular medical floor. He is awake and alert in no acute distress. He needs to maintain good O2 sa turations in the 90s on room air. He is afebrile. Blood culture reveals no growth. Urine culture revealed no growth. Orthopedics plans for conservative treatment and follow-up in the outpatient setting regarding lumbar spine MRI findings. Radiation oncology has been consulted. Objective - Vital Signs Vital signs: Vital Signs Temp 97.8 F 12/18/22 07:21 Pulse 69 12/18/22 07:21 Resp 17 12/18/22 07:21 BP 190/69 12/18/22 07:21 Pulse Ox 96 12/18/22 07:21 FiO2 Intake & Output 12/17/22 12/18/22 12/18/22 18:59 06:59 18:59 Output Total 1400 400 Balance -1400 -400 Output: Urine 1400 400 Other: Voiding Method External Catheter External Catheter External Catheter - Exam GENERAL EXAM: Alert, 82-year-old gentleman, on room air, comfortable in no apparent distress. HEAD: Normocephalic. EYES: Normal reaction of pupils, equal size. NOSE: Clear with pink turbinates. THROAT: No erythema or exudates. NECK: No masses, no JVD. CHEST: No chest wall deformity. LUNGS: Equal air entry with no crackles, wheeze, rhonchi or dullness. CVS: S1 and S2 normal with no audible murmur, regular rhythm. ABDOMEN: No hepatosplenomegaly, normal bowel sounds, no guarding or rigidity. SPINE: No scoliosis or deformity SKIN: No rashes CENTRAL NERVOUS SYSTEM: No focal deficits, tone is normal in all 4 extremities. EXTREMITIES: There is no peripheral edema. No clubbing, no cyanosis. Peripheral pulses are intact. - Labs CBC & Chem 7: 12/17/22 06:45 12/16/22 06:56 Labs: Abnormal Lab Results - Last 24 Hours (Table) 12/17/22 Range/Units 06:45 RBC 3.94 L (4.40-5.60) X 10*6/uL MCV 102.0 H (80.0-97.0) FL MCH 35.5 H (27.0-32.0) pg Eosinophils # 0.41 H (0.04-0.35) X 10*3/uL Assessment and Plan Assessment: COPD, inactive and stable, no evidence of pneumonia based on review of the chest x-rays. No leukocytosis. No hypoxemia. No fever. Pro-calcitonin negative. Generalized global weakness of unclear etiology. Overall, there is significant medical debility. MRI of the lumbar spine revealed evidence of prostate metastatic disease involving L3, L4 and L5. Mild disc degeneration with associated osteoarthritic changes worse at L4-L5 with ligamentum flavum buckling and mild to moderate spinal canal stenosis and moderate bilateral neural foraminal stenosis. Additional trace bilateral facet joint effusions. Frequent falls. MRI of the brain revealed no acute abnormality. Mild elevation of CPK secondary to falls Coronary artery disease with previous coronary stenting History of prostate cancer Hypertension Hyperlipidemia Urinary incontinence Previous history of GI bleed Obstructive sleep apnea Hiatal hernia Plan: The patient was seen and evaluated Medications and labs reviewed Radiation oncology now consulted The patient remains stable and on room air The plan is for subacute rehab at discharge We will see as needed I have personally seen and examined the patient, performed the documentation and the assessment and plan as written. Number of minutes spent on the visit: 10.
[2022-12-18 12:06] VITALS: BMI 31.0
--- NOTE | 2022-12-18 12:09 | P.PN ---
Subjective Progress Note Date: 12/18/22 Principal diagnosis: Confusion, weakness, metastatic prostate cancer In f/u today pt reports [place], he c/o being "poked a lot". He asked if he was at [facility]. He does not remember seeing Dr. Owens yesterday. He is not sure if he feels less weak then when he came in. Objective - Vital Signs Vital signs: Vital Signs Temp 97.8 F 12/18/22 07:21 Pulse 69 12/18/22 07:21 Resp 17 12/18/22 07:21 BP 190/69 12/18/22 07:21 Pulse Ox 96 12/18/22 07:21 FiO2 Intake & Output 12/17/22 12/18/22 12/18/22 18:59 06:59 18:59 Output Total 1400 400 Balance -1400 -400 Output: Urine 1400 400 Other: Voiding Method External Catheter External Catheter External Catheter - Constitutional General appearance: Present: average body habitus, cooperative, no acute distress - EENT Eyes: Present: anicteric sclerae, EOMI ENT: Present: hearing grossly normal - Respiratory Details: Respirations even and unlabored at rest - Cardiovascular Details: Skin warm and dry to the touch - Peripheral edema leg Peripheral Edema: bilateral: None - Integumentary Integumentary: Present: pale - Neurologic Neurologic: Present: CNII-XII intact (Grossly) - Musculoskeletal Musculoskeletal: Present: generalized weakness - Psychiatric Psychiatric Comment(s): Alert and oriented 1 - Labs CBC & Chem 7: 12/17/22 06:45 12/16/22 06:56 Labs: Abnormal Lab Results - Last 24 Hours (Table) 12/17/22 Range/Units 06:45 RBC 3.94 L (4.40-5.60) X 10*6/uL MCV 102.0 H (80.0-97.0) FL MCH 35.5 H (27.0-32.0) pg Eosinophils # 0.41 H (0.04-0.35) X 10*3/uL Assessment and Plan (1) Prostate cancer metastatic to bone Current Visit: Yes Status: Chronic Priority: Medium Code(s): C61 - MALIGNANT NEOPLASM OF PROSTATE; C79.51 - SECONDARY MALIGNANT NEOPLASM OF BONE SNOMED Code(s): 812144087 (2) Hydrocephalus Current Visit: Yes Status: Chronic Priority: High Code(s): G91.9 - HYDROCEPHALUS, UNSPECIFIED SNOMED Code(s): 850846223 Plan: Metastatic prostate cancer -Urology has seen the patient, malignancy history is documented. -Per Urology Casodex discontinued, cont to hold reduced dose Xtandi -F/U Dr. Johnson Back pain. -MRI L/S compared with scan 11/18, imaging similar, mets to L3, 4, 5. Orthopedic Surgeon consulted -Rad Onc consulted for assessment and recommendations Hydrocephalus -Started seeing Neurologist Dr. Marie late last year -He was asymptomatic at that time and was placed on monitoring -He was due to see Dr. Parkinson 12/14 to establish and f/u, as hydrocephalus is now symptomatic. Neurology following inpt
--- NOTE | 2022-12-18 16:13 | P.CONS ---
History of Present Illness - Reason for Consult Consult date: 12/18/22 low back pain Requesting physician: Harley Owens - Chief Complaint low back pain, weakness - History of Present Illness The patient is an 82-year-old male with a history of metastatic prostate cancer. He has recently had treatment with ADT/Xtandi. The patient presents to the hospital secondary to increased weakness and frequent falls. The patient was hospitalized on December 12, 2022. He presented to the emergency room with progressive weakness and having frequent falls. He was found to have a UTI, and was subsequent started on antibiotics. On December 16, the patient underwent an MRI of the brain. This revealed ventricular dilation with generalized cortical atrophy consistent with NPH. The patient had apparently been evaluated for NPH in the past, and observation had been recommended. He also had an MRI of the lumbar spine on December 16. This revealed metastatic disease involving L3 to L5. There was no spinal compression noted. At the time of my discussion with the patient, he reports that he is not having any pain currently. However, he admits to feeling very fatigued. He states he has been having lower back pain, approximately the level of his belt. He states that this pain is typically worse with ambulating or moving. However, he states he has not been able to walk. I spoke to his daughter, who confirms that the patient has had a significant decline in his functional status over the past month. He was reportedly walking independently, although using a cane back in October. Review of Systems ROS unobtainable: due to mental status Past Medical History Past Medical History: Coronary Artery Disease (CAD), Cancer, GERD/Reflux, GI Bleed, Hyperlipidemia, Hypertension, Prostate Disorder, Sleep Apnea/CPAP/BIPAP, Thyroid Disorder Additional Past Medical History / Comment(s): PROSTATE CANCER ([place]URGERY & RADIATION [place] (2011) , hiatal hernia, constipation, hx ulcer yrs ago, INCONTINENT URINE-USES EXTERNAL MALE CATHETER, occasional dizziness."spinal tap done feb 12 2022 & MRI "water on the brain"-following with Dr Parkinson and pedro leon ear History of Any Multi-Drug Resistant Organisms: None Reported Past Surgical History: Heart Catheterization With Stent, Hernia Repair, Prostate Surgery, Tonsillectomy Additional Past Surgical History / Comment(s): colonoscopy, surgery for artificial urethral sphincter inserted and removed., carpal tunnel-left, nasal surgery. Past Anesthesia/Blood Transfusion Reactions: No Reported Reaction Date of Last Stent Placement:: 2001 Past Psychological History: No Psychological Hx Reported Smoking Status: Former smoker Past Alcohol Use History: None Reported Past Drug Use History: None Reported - Past Family History Sister(s) Family Medical History: Cancer Brother(s) Family Medical History: Cancer, CVA/TIA Medications and Allergies Home Medications Medication Instructions Recorded Confirmed Type Multivit-Min/FA/Lycopen/Lutein 1 tab PO DAILY 11/05/15 12/12/22 History [Centrum Silver Tablet] amLODIPine [Norvasc] 5 mg PO DAILY 11/05/15 12/12/22 History Aspirin [Adult Low Dose Aspirin EC] 81 mg PO DAILY 08/27/16 12/12/22 History Losartan [Cozaar] 50 mg PO DAILY 09/22/17 12/12/22 History Omeprazole [PriLOSEC] 20 mg PO DAILY 09/22/17 12/12/22 History Nitroglycerin Sl Tabs [Nitrostat] 0.4 mg SUBLINGUAL Q5M PRN #25 tab 09/30/17 12/12/22 Rx Albuterol Inhaler [Ventolin Hfa 2 puff INHALATION RT-Q6H PRN 09/04/19 12/12/22 History Inhaler] Atorvastatin [Lipitor] 40 mg PO DAILY 09/04/19 12/12/22 History Fish Oil/Dha/Epa [Fish Oil 1,200 1 cap PO DAILY 09/04/19 12/12/22 History mg Fish Oil] Levothyroxine Sodium [Levoxyl] 150 mcg PO DAILY 09/04/19 12/12/22 History Isosorbide Mononitrate ER [Imdur] 30 mg PO DAILY 06/28/20 12/12/22 History Acetaminophen [Tylenol Extra 500 - 1,000 mg PO Q6H PRN 07/03/20 12/12/22 History Strength] Pramipexole [Mirapex] 1 mg PO HS 03/24/22 12/14/22 History Vit C/E/Zn/Coppr/Lutein/Zeaxan 2 cap PO DAILY 03/24/22 12/12/22 History [Preservision Areds 2 Softgel] Cholecalciferol [Vitamin D3 (25 50 mcg PO DAILY 12/12/22 12/12/22 History Mcg = 1000 Iu)] Enzalutamide [Xtandi] 160 mg PO DAILY 12/12/22 12/14/22 History Gabapentin 300 mg PO DAILY 12/12/22 12/12/22 History LORazepam [Ativan] 0.5 mg PO DAILY 12/12/22 12/12/22 History Megestrol Acetate 20 mg PO DAILY 12/12/22 12/12/22 History Allergies Allergy/AdvReac Type Severity Reaction Status Date / Time venom-honey bee Allergy Severe Swelling Verified 12/12/22 16:02 [bee venom (honey bee)] latex Allergy Rash/Hives Verified 12/12/22 16:02 Physical Exam Vitals: Vital Signs Temp Pulse Resp BP Pulse Ox 12/18/22 12:47 97.8 F 63 16 146/74 91 L 12/18/22 07:21 97.8 F 69 17 190/69 96 12/18/22 01:20 98.4 F 73 16 174/78 95 12/17/22 21:00 71 18 12/17/22 19:52 98.3 F 71 18 147/76 94 L Intake and Output 12/18/22 12/18/22 12/18/22 06:59 14:59 22:59 Output Total 400 Balance -400 Output: Urine 400 Other: Voiding Method External Catheter Weight 95.254 kg - Constitutional General appearance: no acute distress - EENT Eyes: EOMI, PERRLA ENT: hard of hearing - Neck Neck: no lymphadenopathy - Respiratory Respiratory: bilateral: CTA - Cardiovascular Rhythm: regular - Integumentary Integumentary: no rash, no ulcer - Neurologic Neurologic: CNII-XII intact - Musculoskeletal Musculoskeletal: left sided weakness (LLE 2/5 strength compared to 4/5 RLE) Results CBC & Chem 7: 12/17/22 06:45 12/16/22 06:56 Labs: Microbiology - Last 24 Hours (Table) 12/12/22 17:07 Blood Culture - Final Blood MRI - head: report reviewed, image reviewed Assessment and Plan Assessment: The patient is an 82-year-old male with a history of metastatic prostate cancer. He has recently had treatment with ADT/Xtandi. The patient presents to the hospital secondary to increased weakness and frequent falls. Plan: 1. Low back pain: The patient's reported area of pain is consistent with the location of his metastatic disease. He did not report any significant pain at the time of our consultation, but according to the patient's daughter he had been complaining of low back pain over the past few weeks. I discussed with the patient and his daughter that we could consider a short course of palliative radiation (1 fraction) to the lumbar spine. I explained that this may help to d ecrease the patient's lower back pain. I would not recommend any prolonged treatment considering the patient's current performance status. We will re- evaluate the patient Wednesday. 2. Metastatic prostate cancer: As detailed above, the patient was initially diagnosed with localized disease in 2011 undergoing prostatectomy, and subsequently salvage radiation in 2014. The patient was found this past September to have metastatic disease to the bone. I am uncertain of when he started Xtandi, and this is being held in case this is contributing to his weakness. His PSA has responded well (<1). 3. Weakness/Falls: Uncertain etiology and may be multifactorial. This could relate to the patient's UTI, his NPH or even medication related. We will continue to follow along with the patient during his hospital stay. I am concerned however considering this represents a pretty significant decline in performance status as the patient was ambulatory back in mid October. Time with Patient: Greater than 30
[2022-12-18] MEDS: MELATONIN 5 MG TABLET PO SCH (19:29)
[2022-12-18] MEDS: PRAMIPEXOLE 1 MG TAB PO SCH (19:30)
[2022-12-19] MEDS: LEVOTHYROXINE 100 MCG TAB PO SCH (05:03)
[2022-12-19] MEDS: MULTIVITAMINS, THERA 1 EACH TAB PO SCH (08:24)
[2022-12-19] MEDS: PANTOPRAZOLE 40 MG TABLET PO SCH (08:24)
[2022-12-19] MEDS: ENOXAPARIN 40 MG/0.4 ML SYRINGE SQ SCH (08:24)
[2022-12-19] MEDS: CYANOCOBALAMIN 500 MCG TAB PO SCH (08:24)
[2022-12-19] MEDS: ISOSORBIDE MONONITRATE ER 30 MG TAB.ER.24H PO SCH (08:24)
[2022-12-19] MEDS: VIT A,C & E-LUTEIN-MINERALS 1 EACH TAB PO SCH (08:24)
[2022-12-19] MEDS: ATORVASTATIN 40 MG TAB PO SCH (08:24)
[2022-12-19] MEDS: GABAPENTIN 300 MG CAP PO SCH (08:24)
[2022-12-19] MEDS: CHOLECALCIFEROL 25 MCG (1000 IU) TABLET PO SCH (08:24)
[2022-12-19] MEDS: ASPIRIN 81 MG PO SCH (08:24)
[2022-12-19] MEDS: MEGESTROL 40 MG TAB PO SCH (08:24)
[2022-12-19] MEDS: LORazepam 0.5 MG TAB PO SCH (08:24)
[2022-12-19] MEDS: amLODIPine 5 MG TAB PO SCH (08:24)
[2022-12-19] MEDS: LOSARTAN 50 MG TAB PO SCH (08:24)
[2022-12-19] MEDS: SODIUM CHLORIDE 0.9% 1,000 ML IV SCH ×2 (08:30→22:25)
[2022-12-19 08:42] LABS: Basophils # (A) 0.1 k/uL (0-0.2); Basophils % (A) 1 %; Eosinophils # (A) 0.6 k/uL (0-0.7); Eosinophils % (A) 7 %; HCT 45.2 % (39.0-53.0); Lymphocytes # (A) 1.7 k/uL (1.0-4.8); Lymphocytes % (A) 20 %; MCH 35.5 pg (25.0-35.0); MCHC 33.2 g/dL (31.0-37.0); MCV 106.8 fL (80.0-100.0); Macrocytosis Moderate; Mean Platelet Volume 8.6; Monocytes # (A) 0.5 k/uL (0-1.0); Monocytes % (A) 6 %; Neutrophils # (A) 5.5 k/uL (1.3-7.7); Neutrophils % (A) 65 %; Platelet Count 170 k/uL (150-450); RBC 4.24 m/uL (4.30-5.90); RDW 12.6 % (11.5-15.5); WBC 8.6 k/uL (3.8-10.6)
[2022-12-19 08:44] LABS: ALT 23 U/L (4-49); AST 36 U/L (17-59); African American GFR (CKD) >90 (>60 ml/min/1.73 sqM); Albumin/Globulin Ratio 1.4; Alkaline Phosphatase 65 U/L (38-126); Anion Gap 11 mmol/L; Blood Urea Nitrogen 14 mg/dL (9-20); Calcium 9.3 mg/dL (8.4-10.2); Carbon Dioxide 18 mmol/L (22-30); Chloride 109 mmol/L (98-107); Globulin 2.9 g/dL; Glucose 97 mg/dL (74-99); Non-African American GFR(CKD) 83 (>60 ml/min/1.73 sqM); Sodium 138 mmol/L (137-145); Total Bilirubin 0.8 mg/dL (0.2-1.3); Total Protein 6.9 g/dL (6.3-8.2)
--- NOTE | 2022-12-19 10:04 | P.PN ---
Subjective Progress Note Date: 12/17/22 This is an 82-year-old male patient of Dr. Godoy who presents with complaints of increased weakness and falls over the past month. Patient reports he's had just generalized weakness causing him to lose his balance increasing over the past few weeks. Patient has past medical history of coronary artery disease, GERD, GI bleed, hyperlipidemia, hypertension, prostate disorder, thyroid disorder, previous heart cath with stents and ex-smoker. Head CT completed showing no acute intracranial process. Nonspecific white matter changes likely secondary to chronic small vessel ischemic disease. Chest x-ray completed showing right lower lung airspace opacities correlate for pneumonia COPD changes. Hip x-ray completed showing no evidence for acute process mild bilateral hip osteoarthritis. UA positive for urinary tract infection. Vital signs temp 97.5, heart rate 65, respiratory rate 18, blood pressure 146/75 pulse ox 97% on room air. At this time patient will be admitted patient started on IV antibiotics Rocephin and azithromycin. Pulmonary and infectious disease service is consulted PT OT services consulted repeat chest x-ray ordered for a.m. On 12/14/2022 patient was seen and examined on the medical floor he is alert and oriented 3 in no apparent distress he is complaining of cough and complaining of generalized weakness otherwise he denies any complaints there is no fever or chills no headache or dizziness no chest pain no shortness of breath no nausea or vomiting no abdominal pain no diarrhea and no urinary symptoms. On 12/15/2022 patient was seen and examined on the medical floor he is alert and oriented in no apparent distress he is complaining of generalized weakness and cough otherwise he denies any complaints. TSH was elevated at 13. Patient insists that he has been taking his Synthroid 150 g on a daily basis. At this time will increase Synthroid dose to 175 g. Continue with current management otherwise. On 12/16/2022 patient is alert and oriented 3. MRI of the spine has been ordered per neurology services. Patient denies chest pain or shortness of breath. Patient denies nausea vomiting or diarrhea. Patient denies any urinary burning or frequency On 12/17/2022 patient was seen and examined on the medical floor he is alert and oriented 3 in no apparent distress he is still complaining of generalized weakness otherwise he denies any complaints there is no fever or chills no headache or dizziness no chest pain no shortness of breath no cough no nausea or vomiting no abdominal pain no diarrhea and no urinary symptoms Objective - Vital Signs Vital signs: Vital Signs Temp 97.4 F L 12/17/22 08:00 Pulse 76 12/17/22 08:00 Resp 16 12/17/22 08:00 BP 169/77 12/17/22 08:00 Pulse Ox 95 12/17/22 08:00 FiO2 Intake & Output 12/16/22 12/17/22 12/17/22 18:59 06:59 18:59 Output Total 200 350 Balance -200 -350 Output: Urine 200 350 Other: Voiding Method External Catheter External Catheter - Exam Head normocephalic and atraumatic Neck supple no JVD no goiter Lungs clear to auscultation bilaterally no wheezing or crackles Heart regular rate and rhythm S1-S2, no rub or gallop Abdomen is soft nontender nondistended positive bowel sounds no hepatosplenomegaly Extremities no edema Neuro alert and orientated to 3 - Labs CBC & Chem 7: 12/17/22 06:45 12/16/22 06:56 Labs: Abnormal Lab Results - Last 24 Hours (Table) 12/16/22 12/16/22 Range/Units 06:56 06:56 RBC 3.80 L (4.40-5.60) X 10*6/uL Hct 38.8 L (39.6-50.0) % MCV 102.1 H (80.0-97.0) FL MCH 36.3 H (27.0-32.0) pg Eosinophils # 0.51 H (0.04-0.35) X 10*3/uL Carbon Dioxide 21.0 L (21.6-31.8) mmol/L Anion Gap 13.00 H (4.00-12.00) mmol/L Microbiology - Last 24 Hours (Table) 12/12/22 17:07 Blood Culture - Preliminary Blood Assessment and Plan Plan: 1. Generalized weakness secondary to UTI pneumonia 2. Urinary tract infection. Urine culture ordered 3. Pneumonia. Repeat 2 view chest x-ray ordered. procalcitonin level ordered patient started on IV antibiotics 4. History of coronary artery disease with previous stent placement 5. History of hyperlipidemia 6. History of essential hypertension 7. History of prostate cancer 8. Ex-smoker DVT prophylaxis Lovenox. GI prophylaxis Protonix Infectious disease and pulmonary services consulted Patient started on IV antibiotics Repeat 2 view chest x-ray ordered Urine culture ordered Repeat labs ordered
--- NOTE | 2022-12-19 10:16 | P.PN ---
Subjective Progress Note Date: 12/19/22 This is an 82-year-old male patient of Dr. Godoy who presents with complaints of increased weakness and falls over the past month. Patient reports he's had just generalized weakness causing him to lose his balance increasing over the past few weeks. Patient has past medical history of coronary artery disease, GERD, GI bleed, hyperlipidemia, hypertension, prostate disorder, thyroid disorder, previous heart cath with stents and ex-smoker. Head CT completed showing no acute intracranial process. Nonspecific white matter changes likely secondary to chronic small vessel ischemic disease. Chest x-ray completed showing right lower lung airspace opacities correlate for pneumonia COPD changes. Hip x-ray completed showing no evidence for acute process mild bilateral hip osteoarthritis. UA positive for urinary tract infection. Vital signs temp 97.5, heart rate 65, respiratory rate 18, blood pressure 146/75 pulse ox 97% on room air. At this time patient will be admitted patient started on IV antibiotics Rocephin and azithromycin. Pulmonary and infectious disease service is consulted PT OT services consulted repeat chest x-ray ordered for a.m. On 12/14/2022 patient was seen and examined on the medical floor he is alert and oriented 3 in no apparent distress he is complaining of cough and complaining of generalized weakness otherwise he denies any complaints there is no fever or chills no headache or dizziness no chest pain no shortness of breath no nausea or vomiting no abdominal pain no diarrhea and no urinary symptoms. On 12/15/2022 patient was seen and examined on the medical floor he is alert and oriented in no apparent distress he is complaining of generalized weakness and cough otherwise he denies any complaints. TSH was elevated at 13. Patient insists that he has been taking his Synthroid 150 g on a daily basis. At this time will increase Synthroid dose to 175 g. Continue with current management otherwise. On 12/16/2022 patient is alert and oriented 3. MRI of the spine has been ordered per neurology services. Patient denies chest pain or shortness of breath. Patient denies nausea vomiting or diarrhea. Patient denies any urinary burning or frequency On 12/17/2022 patient was seen and examined on the medical floor he is alert and oriented 3 in no apparent distress he is still complaining of generalized weakness otherwise he denies any complaints there is no fever or chills no headache or dizziness no chest pain no shortness of breath no cough no nausea or vomiting no abdominal pain no diarrhea and no urinary symptoms. On 12/18/2022 patient is alert and oriented 3. MRI of the brain completed Reviewed Per neurology. Interventional radiology consulted this time patient denies chest pain or shortness of breath. Patient denies nausea vomiting or diarrhea. Patient denies any urinary burning or frequency.. On 12/19/2022 patient was seen and examined on the medical floor he is alert and oriented 3 in no apparent distress he is complaining of generalized weakness with inability to stand and walk, he is also complaining of constipation, otherwise he denies any complaints, there is no fever or chills no headache or dizziness no chest pain no shortness of breath no cough no nausea or vomiting no abdominal pain no diarrhea no blood in the stools no burning with urination no frequency or urgency and no hematuria. Objective - Vital Signs Vital signs: Vital Signs Temp 97.5 F L 12/19/22 07:45 Pulse 60 12/19/22 07:45 Resp 18 12/19/22 07:45 BP 194/91 12/19/22 07:45 Pulse Ox 94 L 12/19/22 07:45 FiO2 Intake & Output 12/18/22 12/19/22 12/19/22 18:59 06:59 18:59 Output Total 950 1850 Balance -950 -1850 Weight 95.254 kg Output: Urine 950 1850 Other: Voiding Method External Catheter External Catheter # Voids 2 # Bowel Movements 1 - Exam Head normocephalic and atraumatic Neck supple no JVD no goiter Lungs clear to auscultation bilaterally no wheezing or crackles Heart regular rate and rhythm S1-S2, no rub or gallop Abdomen is soft nontender nondistended positive bowel sounds no hepatosplenomegaly Extremities no edema Neuro alert and orientated to 3 - Labs CBC & Chem 7: 12/19/22 07:24 12/19/22 07:24 Labs: Abnormal Lab Results - Last 24 Hours (Table) 12/19/22 12/19/22 Range/Units 07:24 07:24 RBC 4.24 L (4.30-5.90) m/uL MCV 106.8 H (80.0-100.0) fL MCH 35.5 H (25.0-35.0) pg Chloride 109 H (98-107) mmol/L Carbon Dioxide 18 L (22-30) mmol/L Microbiology - Last 24 Hours (Table) 12/12/22 17:07 Blood Culture - Final Blood Assessment and Plan Plan: 1. Generalized weakness secondary to UTI pneumonia 2. Urinary tract infection. Urine culture ordered 3. Pneumonia. Repeat 2 view chest x-ray ordered. procalcitonin level ordered patient started on IV antibiotics 4. History of coronary artery disease with previous stent placement 5. History of hyperlipidemia 6. History of essential hypertension 7. History of prostate cancer, with metastatic disease 8. Ex-smoker 9. History of normal pressure hydrocephalus neurology consultation following. DVT prophylaxis Lovenox. GI prophylaxis Protonix Infectious disease and pulmonary services consulted Patient started on IV antibiotics Repeat 2 view chest x-ray ordered Urine culture ordered Repeat labs ordered Radiation oncology are following
[2022-12-19] MEDS: MELATONIN 5 MG TABLET PO SCH (21:16)
[2022-12-19] MEDS: PRAMIPEXOLE 1 MG TAB PO SCH (21:16)
--- NOTE | 2022-12-19 22:08 | P.PN ---
Subjective Progress Note Date: 12/18/22 Principal diagnosis: Urinary tract infection Patient is a 82-year-old male with a past medical history significant for hypertension hyperlipidemia prostate disorder coronary disease and did have history of incontinent urine and did have external Catheter patient presenting to the hospital yesterday afternoon for evaluation of weakness and multiple falls , patient did have a urinary symptoms positive UA concerning for symptomatic UTI. On today's evaluation and that is 12/18/2022, patient remains to be afebrile patient is breathing comfortably on room air no chest pain or shortness of breath occasional cough no abdominal pain or diarrhea has been complaining of mostly pain to the lower back area. Patient did not have any blood draw today blood and urine culture has been Objective - Vital Signs Vital signs: Vital Signs Temp 97.8 F 12/18/22 07:21 Pulse 69 12/18/22 07:21 Resp 17 12/18/22 07:21 BP 190/69 12/18/22 07:21 Pulse Ox 96 12/18/22 07:21 FiO2 Intake & Output 12/17/22 12/18/22 12/18/22 18:59 06:59 18:59 Output Total 1400 400 Balance -1400 -400 Weight 95.254 kg Output: Urine 1400 400 Other: Voiding Method External Catheter External Catheter External Catheter - Exam GENERAL DESCRIPTION: An elderly male up in the chair in no distress RESPIRATORY SYSTEM: Unlabored breathing , decreased breath sounds at bases HEART: S1 S2 regular rate and rhythm , ABDOMEN: Soft , no tenderness EXTREMITIES: No edema feet - Labs CBC & Chem 7: 12/19/22 07:24 12/19/22 07:24 Labs: Abnormal Lab Results - Last 24 Hours (Table) 12/17/22 Range/Units 06:45 RBC 3.94 L (4.40-5.60) X 10*6/uL MCV 102.0 H (80.0-97.0) FL MCH 35.5 H (27.0-32.0) pg Eosinophils # 0.41 H (0.04-0.35) X 10*3/uL Assessment and Plan (1) UTI (urinary tract infection) Current Visit: Yes Status: Acute Code(s): N39.0 - URINARY TRACT INFECTION, SITE NOT SPECIFIED SNOMED Code(s): 20769962 Plan: 1patient was in the hospital with weakness and falls patient did have a positive UA did have a history of urinary incontinence with external catheter some urinary symptoms dark urine high clinical suspicious for symptomatic UTI patient currently on room air did not have significant respiratory symptoms clinical suspicion is low for pneumonia with a chest x-ray repeat was negative for acute cardiopulmonary process. 2patient did have some clinical improvement and culture had been negative so far 3we will continue patient on Rocephin for another day and monitor his clinical course closely radiation oncology has been consulted for his bone mets to the spine area Dictation was produced using [employer] dictation software. please excuse any grammatical, word or spelling errors.
--- NOTE | 2022-12-19 22:10 | P.PN ---
Subjective Progress Note Date: 12/19/22 Principal diagnosis: Urinary tract infection Patient is a 82-year-old male with a past medical history significant for hypertension hyperlipidemia prostate disorder coronary disease and did have history of incontinent urine and did have external Catheter patient presenting to the hospital yesterday afternoon for evaluation of weakness and multiple falls , patient did have a urinary symptoms positive UA concerning for symptomatic UTI. On today's evaluation and that is 12/19/2022, patient continues to be afebrile, patient is breathing comfortably on room air, the P denies chest pain or shortness of breath occasional cough no abdominal pain or diarrhea has been comp laining of mostly pain to the lower back area. Patient did have a white count of 8.6 hemoglobin is 15 creatinine 0.79 Objective - Vital Signs Vital signs: Vital Signs Temp 97.5 F L 12/19/22 07:45 Pulse 60 12/19/22 07:45 Resp 18 12/19/22 07:45 BP 194/91 12/19/22 07:45 Pulse Ox 94 L 12/19/22 07:45 FiO2 Intake & Output 12/18/22 12/19/22 12/19/22 18:59 06:59 18:59 Output Total 950 1850 Balance -950 -1850 Weight 95.254 kg Output: Urine 950 1850 Other: Voiding Method External Catheter External Catheter External Catheter # Voids 2 # Bowel Movements 1 - Exam GENERAL DESCRIPTION: An elderly male up in the chair in no distress RESPIRATORY SYSTEM: Unlabored breathing , decreased breath sounds at bases HEART: S1 S2 regular rate and rhythm , ABDOMEN: Soft , no tenderness EXTREMITIES: No edema feet - Labs CBC & Chem 7: 12/19/22 07:24 12/19/22 07:24 Labs: Abnormal Lab Results - Last 24 Hours (Table) 12/19/22 12/19/22 Range/Units 07:24 07:24 RBC 4.24 L (4.30-5.90) m/uL MCV 106.8 H (80.0-100.0) fL MCH 35.5 H (25.0-35.0) pg Chloride 109 H (98-107) mmol/L Carbon Dioxide 18 L (22-30) mmol/L Microbiology - Last 24 Hours (Table) 12/12/22 17:07 Blood Culture - Final Blood Assessment and Plan (1) UTI (urinary tract infection) Current Visit: Yes Status: Acute Code(s): N39.0 - URINARY TRACT INFECTION, SITE NOT SPECIFIED SNOMED Code(s): 49285569 Plan: 1patient was in the hospital with weakness and falls patient did have a positive UA did have a history of urinary incontinence with external catheter some urinary symptoms dark urine high clinical suspicious for symptomatic UTI patient currently on room air did not have significant respiratory symptoms clinical suspicion is low for pneumonia with a chest x-ray repeat was negative for acute cardiopulmonary process. 2patient did have some clinical improvement and culture had been negative so far 3the patient has received adequate antibiotic therapy will go ahead and discontinue Rocephin and monitor the patient closely off antibiotic therapy Dictation was produced using [employer] dictation software. please excuse any grammatical, word or spelling errors. Time with Patient: Less than 30
[2022-12-20] MEDS: LEVOTHYROXINE 100 MCG TAB PO SCH (06:18)
[2022-12-20] MEDS: PANTOPRAZOLE 40 MG TABLET PO SCH (06:18)
[2022-12-20] MEDS: ASPIRIN 81 MG PO SCH (08:45)
[2022-12-20] MEDS: CYANOCOBALAMIN 500 MCG TAB PO SCH (08:45)
[2022-12-20] MEDS: ENOXAPARIN 40 MG/0.4 ML SYRINGE SQ SCH (08:45)
[2022-12-20] MEDS: CHOLECALCIFEROL 25 MCG (1000 IU) TABLET PO SCH (08:45)
[2022-12-20] MEDS: GABAPENTIN 300 MG CAP PO SCH (08:45)
[2022-12-20] MEDS: LORazepam 0.5 MG TAB PO SCH (08:46)
[2022-12-20] MEDS: MEGESTROL 40 MG TAB PO SCH (08:46)
[2022-12-20] MEDS: ATORVASTATIN 40 MG TAB PO SCH (08:46)
[2022-12-20] MEDS: VIT A,C & E-LUTEIN-MINERALS 1 EACH TAB PO SCH (08:46)
[2022-12-20] MEDS: MULTIVITAMINS, THERA 1 EACH TAB PO SCH (08:46)
[2022-12-20] MEDS: LOSARTAN 50 MG TAB PO SCH (08:47)
[2022-12-20] MEDS: ISOSORBIDE MONONITRATE ER 30 MG TAB.ER.24H PO SCH (08:47)
[2022-12-20] MEDS: amLODIPine 5 MG TAB PO SCH (08:47)
[2022-12-20 08:52] LABS: Basophils % (A) 0 %; Eosinophils # (A) 0.3 k/uL (0-0.7); Eosinophils % (A) 5 %; HCT 38.9 % (39.0-53.0); HGB 13.2 gm/dL (13.0-17.5); Lymphocytes # (A) 1.4 k/uL (1.0-4.8); Lymphocytes % (A) 20 %; MCH 34.7 pg (25.0-35.0); MCHC 33.9 g/dL (31.0-37.0); MCV 102.4 fL (80.0-100.0); Macrocytosis Slight; Monocytes # (A) 0.5 k/uL (0-1.0); Monocytes % (A) 6 %; Neutrophils % (A) 69 %; Platelet Count 217 k/uL (150-450); RDW 12.5 % (11.5-15.5); WBC 7.3 k/uL (3.8-10.6)
[2022-12-20 09:21] LABS: ALT 21 U/L (4-49); AST 25 U/L (17-59); African American GFR (CKD) >90 (>60 ml/min/1.73 sqM); Albumin 3.5 g/dL (3.5-5.0); Albumin/Globulin Ratio 1.3; Alkaline Phosphatase 65 U/L (38-126); Anion Gap 7 mmol/L; Blood Urea Nitrogen 13 mg/dL (9-20); Calcium 9.1 mg/dL (8.4-10.2); Carbon Dioxide 21 mmol/L (22-30); Chloride 110 mmol/L (98-107); Globulin 2.7 g/dL; Glucose 103 mg/dL (74-99); Non-African American GFR(CKD) 82 (>60 ml/min/1.73 sqM); Potassium 3.6 mmol/L (3.5-5.1); Sodium 138 mmol/L (137-145); Total Bilirubin 0.7 mg/dL (0.2-1.3); Total Protein 6.2 g/dL (6.3-8.2)
[2022-12-20] MEDS: SODIUM CHLORIDE 0.9% 1,000 ML IV SCH ×2 (11:30→23:47)
--- NOTE | 2022-12-20 12:41 | P.PN ---
Subjective Progress Note Date: 12/20/22 This is an 82-year-old male patient of Dr. Godoy who presents with complaints of increased weakness and falls over the past month. Patient reports he's had just generalized weakness causing him to lose his balance increasing over the past few weeks. Patient has past medical history of coronary artery disease, GERD, GI bleed, hyperlipidemia, hypertension, prostate disorder, thyroid disorder, previous heart cath with stents and ex-smoker. Head CT completed showing no acute intracranial process. Nonspecific white matter changes likely secondary to chronic small vessel ischemic disease. Chest x-ray completed showing right lower lung airspace opacities correlate for pneumonia COPD changes. Hip x-ray completed showing no evidence for acute process mild bilateral hip osteoarthritis. UA positive for urinary tract infection. Vital signs temp 97.5, heart rate 65, respiratory rate 18, blood pressure 146/75 pulse ox 97% on room air. At this time patient will be admitted patient started on IV antibiotics Rocephin and azithromycin. Pulmonary and infectious disease service is consulted PT OT services consulted repeat chest x-ray ordered for a.m. On 12/14/2022 patient was seen and examined on the medical floor he is alert and oriented 3 in no apparent distress he is complaining of cough and complaining of generalized weakness otherwise he denies any complaints there is no fever or chills no headache or dizziness no chest pain no shortness of breath no nausea or vomiting no abdominal pain no diarrhea and no urinary symptoms. On 12/15/2022 patient was seen and examined on the medical floor he is alert and oriented in no apparent distress he is complaining of generalized weakness and cough otherwise he denies any complaints. TSH was elevated at 13. Patient insists that he has been taking his Synthroid 150 g on a daily basis. At this time will increase Synthroid dose to 175 g. Continue with current management otherwise. On 12/16/2022 patient is alert and oriented 3. MRI of the spine has been ordered per neurology services. Patient denies chest pain or shortness of breath. Patient denies nausea vomiting or diarrhea. Patient denies any urinary burning or frequency On 12/18/2022 patient is alert and oriented 3. MRI of the brain completed Reviewed Per neurology. Interventional radiology consulted this time patient denies chest pain or shortness of breath. Patient denies nausea vomiting or diarrhea. Patient denies any urinary burning or frequency. On 12/19/2022 patient was seen and examined on the medical floor he is alert and oriented 3 in no apparent distress he is complaining of generalized weakness with inability to stand and walk, he is also complaining of constipation, otherwise he denies any complaints, there is no fever or chills no headache or dizziness no chest pain no shortness of breath no cough no nausea or vomiting no abdominal pain no diarrhea no blood in the stools no burning with urination no frequency or urgency and no hematuria. On 12/20/2022 patient is alert and oriented 3 currently resting in bed. Patient was evaluated by interventional radiology will be reevaluated on Wednesday for possible palliative radiation to back. At this time patient denies chest pain or shortness breath. Patient denies nausea vomiting or diarrhea. Patient denies any urinary burning or frequency Objective - Vital Signs Vital signs: Vital Signs Temp 98.8 F 12/20/22 07:12 Pulse 71 12/20/22 07:12 Resp 16 12/20/22 07:12 BP 177/81 12/20/22 07:12 Pulse Ox 96 12/20/22 07:12 FiO2 Intake & Output 12/19/22 12/20/22 12/20/22 18:59 06:59 18:59 Output Total 1300 350 Balance -1300 -350 Output: Urine 1300 350 Other: Voiding Method External Catheter External Catheter External Catheter # Voids 2 # Bowel Movements 3 - Exam Head normocephalic and atraumatic Neck supple no JVD no goiter Lungs clear to auscultation bilaterally no wheezing or crackles Heart regular rate and rhythm S1-S2, no rub or gallop Abdomen is soft nontender nondistended positive bowel sounds no hepatosplenomegaly Extremities no edema Neuro alert and orientated to 3 - Labs CBC & Chem 7: 12/20/22 08:14 12/20/22 08:14 Labs: Abnormal Lab Results - Last 24 Hours (Table) 12/20/22 12/20/22 Range/Units 08:14 08:14 RBC 3.80 L (4.30-5.90) m/uL Hct 38.9 L (39.0-53.0) % MCV 102.4 H (80.0-100.0) fL Chloride 110 H (98-107) mmol/L Carbon Dioxide 21 L (22-30) mmol/L Glucose 103 H (74-99) mg/dL Total Protein 6.2 L (6.3-8.2) g/dL Assessment and Plan Plan: 1. Generalized weakness secondary to UTI pneumonia 2. Urinary tract infection. Urine culture ordered 3. Pneumonia. Repeat 2 view chest x-ray ordered. procalcitonin level ordered patient started on IV antibiotics 4. History of coronary artery disease with previous stent placement 5. History of hyperlipidemia 6. History of essential hypertension 7. History of prostate cancer 8. Ex-smoker DVT prophylaxis Lovenox. GI prophylaxis Protonix Infectious disease and pulmonary services consulted Neurology services following Interventional radiology ordered per neurology MRI completed
--- NOTE | 2022-12-20 15:39 | P.PN ---
Subjective Progress Note Date: 12/20/22 Principal diagnosis: Urinary tract infection Patient is a 82-year-old male with a past medical history significant for hypertension hyperlipidemia prostate disorder coronary disease and did have history of incontinent urine and did have external Catheter patient presenting to the hospital yesterday afternoon for evaluation of weakness and multiple falls , patient did have a urinary symptoms positive UA concerning for symptomatic UTI. On today's evaluation and that is 12/20/2022, patient remains to be afebrile, patient is breathing comfortably on room air, the patient denies chest pain or shortness of breath , the patient did have occasional cough but no sputum pr oduction, no abdominal pain or diarrhea has been complaining of mostly pain to the lower back area. Patient did have a white count of 7.3 hemoglobin is 13.2, creatinine is 0.81 Objective - Vital Signs Vital signs: Vital Signs Temp 98.1 F 12/20/22 13:18 Pulse 69 12/20/22 13:18 Resp 15 12/20/22 13:18 BP 153/81 12/20/22 13:18 Pulse Ox 91 L 12/20/22 13:18 FiO2 Intake & Output 12/19/22 12/20/22 12/20/22 18:59 06:59 18:59 Output Total 1300 350 Balance -1300 -350 Output: Urine 1300 350 Other: Voiding Method External Catheter External Catheter External Catheter # Voids 2 # Bowel Movements 3 - Exam GENERAL DESCRIPTION: An elderly male up in the chair in no distress RESPIRATORY SYSTEM: Unlabored breathing , decreased breath sounds at bases HEART: S1 S2 regular rate and rhythm , ABDOMEN: Soft , no tenderness EXTREMITIES: No edema feet - Labs CBC & Chem 7: 12/20/22 08:14 12/20/22 08:14 Labs: Abnormal Lab Results - Last 24 Hours (Table) 12/20/22 12/20/22 Range/Units 08:14 08:14 RBC 3.80 L (4.30-5.90) m/uL Hct 38.9 L (39.0-53.0) % MCV 102.4 H (80.0-100.0) fL Chloride 110 H (98-107) mmol/L Carbon Dioxide 21 L (22-30) mmol/L Glucose 103 H (74-99) mg/dL Total Protein 6.2 L (6.3-8.2) g/dL Assessment and Plan (1) UTI (urinary tract infection) Current Visit: Yes Status: Acute Code(s): N39.0 - URINARY TRACT INFECTION, SITE NOT SPECIFIED SNOMED Code(s): 12215430 Plan: 1patient was in the hospital with weakness and falls patient did have a positive UA did have a history of urinary incontinence with external catheter some urinary symptoms dark urine high clinical suspicious for symptomatic UTI patient currently on room air did not have significant respiratory symptoms clinical suspicion is low for pneumonia with a chest x-ray repeat was negative for acute cardiopulmonary process. 2patient did have some clinical improvement and culture had been negative so far 3the patient has received adequate antibiotic therapy and is currently being monitored closely off antibiotic therapy Son at the bedside he was updated about his care Dictation was produced using [employer] dictation software. please excuse any grammatical, word or spelling errors. Time with Patient: Less than 30
[2022-12-20] MEDS: MELATONIN 5 MG TABLET PO SCH (19:54)
[2022-12-20] MEDS: PRAMIPEXOLE 1 MG TAB PO SCH (19:54)
[2022-12-21] MEDS: LEVOTHYROXINE 100 MCG TAB PO SCH (05:36)
[2022-12-21] MEDS: PANTOPRAZOLE 40 MG TABLET PO SCH (06:53)
[2022-12-21 07:52] LABS: Basophils % (A) 0 %; Eosinophils % (A) 8 %; HCT 39.3 % (39.0-53.0); HGB 13.8 gm/dL (13.0-17.5); Lymphocytes # (A) 1.6 k/uL (1.0-4.8); Lymphocytes % (A) 22 %; MCH 35.9 pg (25.0-35.0); MCV 102.4 fL (80.0-100.0); Macrocytosis Slight; Mean Platelet Volume 8.6; Monocytes % (A) 8 %; Neutrophils # (A) 4.2 k/uL (1.3-7.7); Neutrophils % (A) 60 %; Platelet Count 212 k/uL (150-450); RBC 3.84 m/uL (4.30-5.90); RDW 12.7 % (11.5-15.5); WBC 7.1 k/uL (3.8-10.6)
[2022-12-21 07:53] LABS: Eosinophils # (A) 0.6 k/uL (0-0.7); Monocytes # (A) 0.5 k/uL (0-1.0)
[2022-12-21 08:06] LABS: ALT 21 U/L (4-49); AST 26 U/L (17-59); African American GFR (CKD) >90 (>60 ml/min/1.73 sqM); Albumin 3.6 g/dL (3.5-5.0); Albumin/Globulin Ratio 1.4; Alkaline Phosphatase 71 U/L (38-126); Anion Gap 8 mmol/L; Blood Urea Nitrogen 11 mg/dL (9-20); Carbon Dioxide 21 mmol/L (22-30); Chloride 110 mmol/L (98-107); Globulin 2.6 g/dL; Glucose 99 mg/dL (74-99); Non-African American GFR(CKD) 84 (>60 ml/min/1.73 sqM); Potassium 3.5 mmol/L (3.5-5.1); Sodium 139 mmol/L (137-145); Total Bilirubin 0.7 mg/dL (0.2-1.3); Total Protein 6.2 g/dL (6.3-8.2)
[2022-12-21] MEDS: CHOLECALCIFEROL 25 MCG (1000 IU) TABLET PO SCH (08:39)
[2022-12-21] MEDS: ATORVASTATIN 40 MG TAB PO SCH (08:40)
[2022-12-21] MEDS: ASPIRIN 81 MG PO SCH (08:40)
[2022-12-21] MEDS: amLODIPine 5 MG TAB PO SCH (08:40)
[2022-12-21] MEDS: ISOSORBIDE MONONITRATE ER 30 MG TAB.ER.24H PO SCH (08:40)
[2022-12-21] MEDS: MULTIVITAMINS, THERA 1 EACH TAB PO SCH (08:40)
[2022-12-21] MEDS: LOSARTAN 50 MG TAB PO SCH (08:40)
[2022-12-21] MEDS: CYANOCOBALAMIN 500 MCG TAB PO SCH (08:41)
[2022-12-21] MEDS: GABAPENTIN 300 MG CAP PO SCH (08:41)
[2022-12-21] MEDS: ENOXAPARIN 40 MG/0.4 ML SYRINGE SQ SCH (08:41)
[2022-12-21] MEDS: LORazepam 0.5 MG TAB PO SCH (08:41)
[2022-12-21] MEDS: MEGESTROL 40 MG TAB PO SCH (08:42)
[2022-12-21] MEDS: VIT A,C & E-LUTEIN-MINERALS 1 EACH TAB PO SCH (08:42)
--- NOTE | 2022-12-21 12:51 | P.PN ---
Subjective Progress Note Date: 12/21/22 This is an 82-year-old male patient of Dr. Godoy who presents with complaints of increased weakness and falls over the past month. Patient reports he's had just generalized weakness causing him to lose his balance increasing over the past few weeks. Patient has past medical history of coronary artery disease, GERD, GI bleed, hyperlipidemia, hypertension, prostate disorder, thyroid disorder, previous heart cath with stents and ex-smoker. Head CT completed showing no acute intracranial process. Nonspecific white matter changes likely secondary to chronic small vessel ischemic disease. Chest x-ray completed showing right lower lung airspace opacities correlate for pneumonia COPD changes. Hip x-ray completed showing no evidence for acute process mild bilateral hip osteoarthritis. UA positive for urinary tract infection. Vital signs temp 97.5, heart rate 65, respiratory rate 18, blood pressure 146/75 pulse ox 97% on room air. At this time patient will be admitted patient started on IV antibiotics Rocephin and azithromycin. Pulmonary and infectious disease service is consulted PT OT services consulted repeat chest x-ray ordered for a.m. On 12/14/2022 patient was seen and examined on the medical floor he is alert and oriented 3 in no apparent distress he is complaining of cough and complaining of generalized weakness otherwise he denies any complaints there is no fever or chills no headache or dizziness no chest pain no shortness of breath no nausea or vomiting no abdominal pain no diarrhea and no urinary symptoms. On 12/15/2022 patient was seen and examined on the medical floor he is alert and oriented in no apparent distress he is complaining of generalized weakness and cough otherwise he denies any complaints. TSH was elevated at 13. Patient insists that he has been taking his Synthroid 150 g on a daily basis. At this time will increase Synthroid dose to 175 g. Continue with current management otherwise. On 12/16/2022 patient is alert and oriented 3. MRI of the spine has been ordered per neurology services. Patient denies chest pain or shortness of breath. Patient denies nausea vomiting or diarrhea. Patient denies any urinary burning or frequency On 12/18/2022 patient is alert and oriented 3. MRI of the brain completed Reviewed Per neurology. Interventional radiology consulted this time patient denies chest pain or shortness of breath. Patient denies nausea vomiting or diarrhea. Patient denies any urinary burning or frequency. On 12/19/2022 patient was seen and examined on the medical floor he is alert and oriented 3 in no apparent distress he is complaining of generalized weakness with inability to stand and walk, he is also complaining of constipation, otherwise he denies any complaints, there is no fever or chills no headache or dizziness no chest pain no shortness of breath no cough no nausea or vomiting no abdominal pain no diarrhea no blood in the stools no burning with urination no frequency or urgency and no hematuria. On 12/20/2022 patient is alert and oriented 3 currently resting in bed. Patient was evaluated by interventional radiology will be reevaluated on Wednesday for possible palliative radiation to back. At this time patient denies chest pain or shortness breath. Patient denies nausea vomiting or diarrhea. Patient denies any urinary burning or frequency On 12/21/2022 patient was seen and examined on the medical floor he is alert and oriented 3 in no apparent distress, he is complaining of generalized pain otherwise he denies any complaints there is no fever or chills no headache or dizziness no chest pain no shortness of breath no cough no nausea or vomiting no abdominal pain no diarrhea and no urinary symptoms Objective - Vital Signs Vital signs: Vital Signs Temp 97.7 F 12/21/22 07:00 Pulse 64 12/21/22 07:00 Resp 19 12/21/22 07:00 BP 175/72 12/21/22 07:00 Pulse Ox 92 L 12/21/22 07:00 FiO2 Intake & Output 12/20/22 12/21/22 12/21/22 18:59 06:59 18:59 Output Total 800 500 725 Balance -800 -500 -725 Output: Urine 800 500 725 Other: Voiding Method External Catheter External Catheter # Voids 1 # Bowel Movements 1 - Exam Head normocephalic and atraumatic Neck supple no JVD no goiter Lungs clear to auscultation bilaterally no wheezing or crackles Heart regular rate and rhythm S1-S2, no rub or gallop Abdomen is soft nontender nondistended positive bowel sounds no hepatosplenomegaly Extremities no edema Neuro alert and orientated to 3 - Labs CBC & Chem 7: 12/21/22 06:40 12/21/22 06:40 Labs: Abnormal Lab Results - Last 24 Hours (Table) 12/21/22 12/21/22 Range/Units 06:40 06:40 RBC 3.84 L (4.30-5.90) m/uL MCV 102.4 H (80.0-100.0) fL MCH 35.9 H (25.0-35.0) pg Chloride 110 H (98-107) mmol/L Carbon Dioxide 21 L (22-30) mmol/L Total Protein 6.2 L (6.3-8.2) g/dL Assessment and Plan Plan: 1. Generalized weakness secondary to UTI pneumonia 2. Urinary tract infection. Urine culture ordered 3. Pneumonia. Repeat 2 view chest x-ray ordered. procalcitonin level ordered patient started on IV antibiotics 4. History of coronary artery disease with previous stent placement 5. History of hyperlipidemia 6. History of essential hypertension 7. History of prostate cancer 8. Ex-smoker DVT prophylaxis Lovenox. GI prophylaxis Protonix Infectious disease and pulmonary services consulted Neurology services following Interventional radiology ordered per neurology MRI completed
[2022-12-21] MEDS: SODIUM CHLORIDE 0.9% 1,000 ML IV SCH (14:09)
[2022-12-22] MEDS: MELATONIN 5 MG TABLET PO SCH ×2 (00:08→19:54)
[2022-12-22] MEDS: PRAMIPEXOLE 1 MG TAB PO SCH ×2 (00:08→19:55)
[2022-12-22] MEDS: LEVOTHYROXINE 100 MCG TAB PO SCH (08:08)
[2022-12-22] MEDS: LOSARTAN 50 MG TAB PO SCH (08:08)
[2022-12-22] MEDS: ATORVASTATIN 40 MG TAB PO SCH (08:09)
[2022-12-22] MEDS: amLODIPine 5 MG TAB PO SCH (08:09)
[2022-12-22] MEDS: ASPIRIN 81 MG PO SCH (08:09)
[2022-12-22] MEDS: VIT A,C & E-LUTEIN-MINERALS 1 EACH TAB PO SCH (08:09)
[2022-12-22] MEDS: CYANOCOBALAMIN 500 MCG TAB PO SCH (08:09)
[2022-12-22] MEDS: MULTIVITAMINS, THERA 1 EACH TAB PO SCH (08:09)
[2022-12-22] MEDS: GABAPENTIN 300 MG CAP PO SCH (08:09)
[2022-12-22] MEDS: LORazepam 0.5 MG TAB PO SCH (08:09)
[2022-12-22] MEDS: PANTOPRAZOLE 40 MG TABLET PO SCH (08:09)
[2022-12-22] MEDS: ISOSORBIDE MONONITRATE ER 30 MG TAB.ER.24H PO SCH (08:09)
[2022-12-22] MEDS: ENOXAPARIN 40 MG/0.4 ML SYRINGE SQ SCH (08:10)
[2022-12-22] MEDS: MEGESTROL 40 MG TAB PO SCH (08:10)
[2022-12-22] MEDS: CHOLECALCIFEROL 25 MCG (1000 IU) TABLET PO SCH (08:10)
[2022-12-22] MEDS: SODIUM CHLORIDE 0.9% 1,000 ML IV SCH ×2 (08:16→19:55)
[2022-12-22 11:31] LABS: Basophils # (A) 0.06 X 10*3/uL (0.00-0.10); Basophils % (A) 0.8 %; Eosinophils # (A) 0.59 X 10*3/uL (0.04-0.35); Eosinophils % (A) 7.9 %; HCT 39.7 % (39.6-50.0); HGB 13.9 d/dL (13.0-17.0); Lymphocytes # (A) 1.67 X 10*3/uL (0.90-5.00); Lymphocytes % (A) 22.4 %; MCH 35.8 pg (27.0-32.0); MCV 102.3 FL (80.0-97.0); Mean Platelet Volume 9.8 FL (9.5-12.2); Monocytes # (A) 0.57 X 10*3/uL (0.20-1.00); Monocytes % (A) 7.7 %; NRBC Per 100 WBC 0 X 10*3/uL (0.00-0.01); Neutrophils # (A) 4.55 X 10*3/uL (1.80-7.70); Neutrophils % (A) 61.1 %; Platelet Count 225 X 10*3/uL (140-440); RBC 3.88 X 10*6/uL (4.40-5.60); RDW 12.6 % (11.5-14.5); WBC 7.45 X 10*3/uL (4.50-10.00)
[2022-12-22 11:38] LABS: Blood Urea Nitrogen 12.4 mg/dL (9.0-27.0); Chloride 107 mmol/L (96-109); Glucose 101 mg/dL (70-110); Potassium 3.7 mmol/L (3.5-5.5); Sodium 142 mmol/L (135-145)
[2022-12-22 11:39] LABS: ALT 23 U/L (10-49); AST 23 U/L (14-35); Albumin 4.2 d/dL (3.8-4.9); Alkaline Phosphatase 72 U/L (41-126); Calcium 9.5 mg/dL (8.7-10.3); Carbon Dioxide 22.7 mmol/L (21.6-31.8); Total Bilirubin 0.4 mg/dL (0.3-1.2); Total Protein 6.2 d/dL (6.2-8.2)
--- NOTE | 2022-12-22 16:22 | P.PN ---
Subjective Progress Note Date: 12/22/22 Principal diagnosis: Metastatic castrate resistant prostate cancer. The patient is admitted due to inability to ambulate. He was found early this summer to have bone metastases despite androgen deprivation therapy. He began taking Xtandi in early September, and his PSA level on 12/02/2022 was 0.120, down from 15. and July 2022. When last seen in the office on December 07, he rep orted thigh pain and impaired balance. Review of his bone scan showed no femur metastases. During this hospitalization, an MRI of the lumbar spine has shown metastases to L3, L4, and L5 but no evidence of spinal cord compression. Therefore, it appears that he has had an excellent biochemical response to Xtandi, and the cause of his inability to ambulate remains indeterminate. He has been diagnosed with hydrocephalus, which may be a contributing factor. Incidentally, although urinalysis at the time of admission suggested the presence of a UTI, the urine culture was negative. Objective - Vital Signs Vital signs: Vital Signs Temp 98.1 F 12/22/22 07:13 Pulse 63 12/22/22 07:13 Resp 16 12/22/22 07:13 BP 138/64 12/22/22 07:13 Pulse Ox 92 L 12/22/22 07:13 FiO2 Intake & Output 12/21/22 12/22/22 12/22/22 18:59 06:59 18:59 Output Total 1025 350 500 Balance -1025 -350 -500 Output: Urine 1025 350 500 Other: Voiding Method External Catheter External Catheter External Catheter - Constitutional General appearance: Present: average body habitus, no acute distress - Psychiatric Psychiatric: Present: A&O x's 3 - Labs CBC & Chem 7: 12/22/22 06:40 12/22/22 06:40 Labs: Abnormal Lab Results - Last 24 Hours (Table) 12/22/22 12/22/22 Range/Units 06:40 06:40 RBC 3.88 L (4.40-5.60) X 10*6/uL MCV 102.3 H (80.0-97.0) FL MCH 35.8 H (27.0-32.0) pg Eosinophils # 0.59 H (0.04-0.35) X 10*3/uL Anion Gap 12.30 H (4.00-12.00) mmol/L Assessment and Plan (1) Prostate cancer metastatic to bone Current Visit: Yes Status: Chronic Priority: Medium Code(s): C61 - MALIGNANT NEOPLASM OF PROSTATE; C79.51 - SECONDARY MALIGNANT NEOPLASM OF BONE SNOMED Code(s): 158053760 (2) Malignant neoplasm of prostate Current Visit: Yes Status: Acute Code(s): C61 - MALIGNANT NEOPLASM OF PROSTATE SNOMED Code(s): 060859911 Plan: For now, Xtandi is being held until the cause of the patient's symptomatology becomes more clear. Androgen deprivation therapy will be continued.
--- NOTE | 2022-12-22 17:33 | P.PN ---
Subjective Progress Note Date: 12/22/22 This is an 82-year-old male patient of Dr. Godoy who presents with complaints of increased weakness and falls over the past month. Patient reports he's had just generalized weakness causing him to lose his balance increasing over the past few weeks. Patient has past medical history of coronary artery disease, GERD, GI bleed, hyperlipidemia, hypertension, prostate disorder, thyroid disorder, previous heart cath with stents and ex-smoker. Head CT completed showing no acute intracranial process. Nonspecific white matter changes likely secondary to chronic small vessel ischemic disease. Chest x-ray completed showing right lower lung airspace opacities correlate for pneumonia COPD changes. Hip x-ray completed showing no evidence for acute process mild bilateral hip osteoarthritis. UA positive for urinary tract infection. Vital signs temp 97.5, heart rate 65, respiratory rate 18, blood pressure 146/75 pulse ox 97% on room air. At this time patient will be admitted patient started on IV antibiotics Rocephin and azithromycin. Pulmonary and infectious disease service is consulted PT OT services consulted repeat chest x-ray ordered for a.m. On 12/14/2022 patient was seen and examined on the medical floor he is alert and oriented 3 in no apparent distress he is complaining of cough and complaining of generalized weakness otherwise he denies any complaints there is no fever or chills no headache or dizziness no chest pain no shortness of breath no nausea or vomiting no abdominal pain no diarrhea and no urinary symptoms. On 12/15/2022 patient was seen and examined on the medical floor he is alert and oriented in no apparent distress he is complaining of generalized weakness and cough otherwise he denies any complaints. TSH was elevated at 13. Patient insists that he has been taking his Synthroid 150 g on a daily basis. At this time will increase Synthroid dose to 175 g. Continue with current management otherwise. On 12/16/2022 patient is alert and oriented 3. MRI of the spine has been ordered per neurology services. Patient denies chest pain or shortness of breath. Patient denies nausea vomiting or diarrhea. Patient denies any urinary burning or frequency On 12/18/2022 patient is alert and oriented 3. MRI of the brain completed Reviewed Per neurology. Interventional radiology consulted this time patient denies chest pain or shortness of breath. Patient denies nausea vomiting or diarrhea. Patient denies any urinary burning or frequency. On 12/19/2022 patient was seen and examined on the medical floor he is alert and oriented 3 in no apparent distress he is complaining of generalized weakness with inability to stand and walk, he is also complaining of constipation, otherwise he denies any complaints, there is no fever or chills no headache or dizziness no chest pain no shortness of breath no cough no nausea or vomiting no abdominal pain no diarrhea no blood in the stools no burning with urination no frequency or urgency and no hematuria. On 12/20/2022 patient is alert and oriented 3 currently resting in bed. Patient was evaluated by interventional radiology will be reevaluated on Wednesday for possible palliative radiation to back. At this time patient denies chest pain or shortness breath. Patient denies nausea vomiting or diarrhea. Patient denies any urinary burning or frequency On 12/21/2022 patient was seen and examined on the medical floor he is alert and oriented 3 in no apparent distress, he is complaining of generalized pain otherwise he denies any complaints there is no fever or chills no headache or dizziness no chest pain no shortness of breath no cough no nausea or vomiting no abdominal pain no diarrhea and no urinary symptoms On 12/22/2022 patient was seen and examined on the medical floor he is alert and oriented 3 in no apparent distress he is complaining of generalized weakness with inability to stand and walk, otherwise he denies any complaints, there is no fever or chills no headache or dizziness no chest pain no shortness of breath no cough no nausea or vomiting no abdominal pain no diarrhea no blood in the stools no burning with urination no frequency or urgency and no hematuria. At this time we are awaiting for further input from radiation oncology, possible discharge to [facility] for [facility] in the next 1-2 days. Objective - Vital Signs Vital signs: Vital Signs Temp 98.1 F 12/22/22 07:13 Pulse 63 12/22/22 07:13 Resp 16 12/22/22 07:13 BP 138/64 12/22/22 07:13 Pulse Ox 92 L 12/22/22 07:13 FiO2 Intake & Output 12/21/22 12/22/22 12/22/22 18:59 06:59 18:59 Output Total 1025 350 500 Balance -1025 -350 -500 Output: Urine 1025 350 500 Other: Voiding Method External Catheter External Catheter External Catheter - Exam Head normocephalic and atraumatic Neck supple no JVD no goiter Lungs clear to auscultation bilaterally no wheezing or crackles Heart regular rate and rhythm S1-S2, no rub or gallop Abdomen is soft nontender nondistended positive bowel sounds no hepatosplenomegaly Extremities no edema Neuro alert and orientated to 3 - Labs CBC & Chem 7: 12/22/22 06:40 12/22/22 06:40 Labs: Abnormal Lab Results - Last 24 Hours (Table) 12/22/22 12/22/22 Range/Units 06:40 06:40 RBC 3.88 L (4.40-5.60) X 10*6/uL MCV 102.3 H (80.0-97.0) FL MCH 35.8 H (27.0-32.0) pg Eosinophils # 0.59 H (0.04-0.35) X 10*3/uL Anion Gap 12.30 H (4.00-12.00) mmol/L Assessment and Plan Plan: 1. Generalized weakness secondary to UTI pneumonia 2. Urinary tract infection. Urine culture ordered 3. Pneumonia. Repeat 2 view chest x-ray ordered. procalcitonin level ordered patient started on IV antibiotics 4. History of coronary artery disease with previous stent placement 5. History of hyperlipidemia 6. History of essential hypertension 7. History of prostate cancer 8. Ex-smoker DVT prophylaxis Lovenox. GI prophylaxis Protonix Infectious disease and pulmonary services consulted Neurology services following Interventional radiology ordered per neurology MRI completed
[2022-12-23] MEDS: SODIUM CHLORIDE 0.9% 1,000 ML IV SCH ×2 (05:29→19:39)
[2022-12-23] MEDS: LEVOTHYROXINE 100 MCG TAB PO SCH (05:30)
[2022-12-23] MEDS: ASPIRIN 81 MG PO SCH (09:12)
[2022-12-23] MEDS: PANTOPRAZOLE 40 MG TABLET PO SCH (09:13)
[2022-12-23] MEDS: ATORVASTATIN 40 MG TAB PO SCH (09:13)
[2022-12-23] MEDS: LORazepam 0.5 MG TAB PO SCH (09:13)
[2022-12-23] MEDS: CHOLECALCIFEROL 25 MCG (1000 IU) TABLET PO SCH (09:13)
[2022-12-23] MEDS: CYANOCOBALAMIN 500 MCG TAB PO SCH (09:13)
[2022-12-23] MEDS: MULTIVITAMINS, THERA 1 EACH TAB PO SCH (09:13)
[2022-12-23] MEDS: GABAPENTIN 300 MG CAP PO SCH (09:14)
[2022-12-23] MEDS: ISOSORBIDE MONONITRATE ER 30 MG TAB.ER.24H PO SCH (09:14)
[2022-12-23] MEDS: LOSARTAN 50 MG TAB PO SCH (09:14)
[2022-12-23] MEDS: VIT A,C & E-LUTEIN-MINERALS 1 EACH TAB PO SCH (09:14)
[2022-12-23] MEDS: ENOXAPARIN 40 MG/0.4 ML SYRINGE SQ SCH (09:14)
[2022-12-23] MEDS: amLODIPine 5 MG TAB PO SCH (09:14)
[2022-12-23] MEDS: MEGESTROL 40 MG TAB PO SCH (09:23)
--- NOTE | 2022-12-23 10:05 | P.PN ---
Subjective Progress Note Date: 12/23/22 Principal diagnosis: Metastatic castrate resistant prostate cancer. The patient is admitted due to inability to ambulate. He was found early this summer to have bone metastases despite androgen deprivation therapy. He began taking Xtandi in early September, and his PSA level on 12/02/2022 was 0.120, down from 15. and July 2022. When last seen in the office on December 07, he rep orted thigh pain and impaired balance. Review of his bone scan showed no femur metastases. During this hospitalization, an MRI of the lumbar spine has shown metastases to L3, L4, and L5 but no evidence of spinal cord compression. Therefore, it appears that he has had an excellent biochemical response to Xtandi, and the cause of his inability to ambulate remains indeterminate. He has been diagnosed with hydrocephalus, which may be a contributing factor. Upon close questioning, it appears that his difficulty ambulating is related more to impaired balance than leg weakness. Objective - Vital Signs Vital signs: Vital Signs Temp 98.5 F 12/23/22 09:10 Pulse 69 12/23/22 09:10 Resp 15 12/23/22 09:10 BP 175/83 12/23/22 09:10 Pulse Ox 94 L 12/23/22 09:10 FiO2 Intake & Output 12/22/22 12/23/22 12/23/22 18:59 06:59 18:59 Output Total 600 1000 Balance -600 -1000 Output: Urine 600 1000 Other: Voiding Method External Catheter - Constitutional General appearance: Present: average body habitus, cooperative - Psychiatric Psychiatric: Present: A&O x's 3 - Labs CBC & Chem 7: 12/22/22 06:40 12/22/22 06:40 Labs: Abnormal Lab Results - Last 24 Hours (Table) 12/22/22 12/22/22 Range/Units 06:40 06:40 RBC 3.88 L (4.40-5.60) X 10*6/uL MCV 102.3 H (80.0-97.0) FL MCH 35.8 H (27.0-32.0) pg Eosinophils # 0.59 H (0.04-0.35) X 10*3/uL Anion Gap 12.30 H (4.00-12.00) mmol/L Assessment and Plan (1) Prostate cancer metastatic to bone Current Visit: Yes Status: Chronic Priority: Medium Code(s): C61 - MALIGNANT NEOPLASM OF PROSTATE; C79.51 - SECONDARY MALIGNANT NEOPLASM OF BONE SNOMED Code(s): 012009184 (2) Malignant neoplasm of prostate Current Visit: Yes Status: Acute Code(s): C61 - MALIGNANT NEOPLASM OF PROSTATE SNOMED Code(s): 780477218 Plan: Androgen deprivation therapy will be continued. Depending on the patient's condition, it would be ideal to resume Xtandi whenever possible. It is anticipated that the patient will be discharged to [facility] for rehab.
--- NOTE | 2022-12-23 10:52 | P.PN ---
Subjective Progress Note Date: 12/23/22 This is an 82-year-old male patient of Dr. Godoy who presents with complaints of increased weakness and falls over the past month. Patient reports he's had just generalized weakness causing him to lose his balance increasing over the past few weeks. Patient has past medical history of coronary artery disease, GERD, GI bleed, hyperlipidemia, hypertension, prostate disorder, thyroid disorder, previous heart cath with stents and ex-smoker. Head CT completed showing no acute intracranial process. Nonspecific white matter changes likely secondary to chronic small vessel ischemic disease. Chest x-ray completed showing right lower lung airspace opacities correlate for pneumonia COPD changes. Hip x-ray completed showing no evidence for acute process mild bilateral hip osteoarthritis. UA positive for urinary tract infection. Vital signs temp 97.5, heart rate 65, respiratory rate 18, blood pressure 146/75 pulse ox 97% on room air. At this time patient will be admitted patient started on IV antibiotics Rocephin and azithromycin. Pulmonary and infectious disease service is consulted PT OT services consulted repeat chest x-ray ordered for a.m. On 12/14/2022 patient was seen and examined on the medical floor he is alert and oriented 3 in no apparent distress he is complaining of cough and complaining of generalized weakness otherwise he denies any complaints there is no fever or chills no headache or dizziness no chest pain no shortness of breath no nausea or vomiting no abdominal pain no diarrhea and no urinary symptoms. On 12/15/2022 patient was seen and examined on the medical floor he is alert and oriented in no apparent distress he is complaining of generalized weakness and cough otherwise he denies any complaints. TSH was elevated at 13. Patient insists that he has been taking his Synthroid 150 g on a daily basis. At this time will increase Synthroid dose to 175 g. Continue with current management otherwise. On 12/16/2022 patient is alert and oriented 3. MRI of the spine has been ordered per neurology services. Patient denies chest pain or shortness of breath. Patient denies nausea vomiting or diarrhea. Patient denies any urinary burning or frequency On 12/18/2022 patient is alert and oriented 3. MRI of the brain completed Reviewed Per neurology. Interventional radiology consulted this time patient denies chest pain or shortness of breath. Patient denies nausea vomiting or diarrhea. Patient denies any urinary burning or frequency. On 12/19/2022 patient was seen and examined on the medical floor he is alert and oriented 3 in no apparent distress he is complaining of generalized weakness with inability to stand and walk, he is also complaining of constipation, otherwise he denies any complaints, there is no fever or chills no headache or dizziness no chest pain no shortness of breath no cough no nausea or vomiting no abdominal pain no diarrhea no blood in the stools no burning with urination no frequency or urgency and no hematuria. On 12/20/2022 patient is alert and oriented 3 currently resting in bed. Patient was evaluated by interventional radiology will be reevaluated on Wednesday for possible palliative radiation to back. At this time patient denies chest pain or shortness breath. Patient denies nausea vomiting or diarrhea. Patient denies any urinary burning or frequency On 12/21/2022 patient was seen and examined on the medical floor he is alert and oriented 3 in no apparent distress, he is complaining of generalized pain otherwise he denies any complaints there is no fever or chills no headache or dizziness no chest pain no shortness of breath no cough no nausea or vomiting no abdominal pain no diarrhea and no urinary symptoms On 12/22/2022 patient was seen and examined on the medical floor he is alert and oriented 3 in no apparent distress he is complaining of generalized weakness with inability to stand and walk, otherwise he denies any complaints, there is no fever or chills no headache or dizziness no chest pain no shortness of breath no cough no nausea or vomiting no abdominal pain no diarrhea no blood in the stools no burning with urination no frequency or urgency and no hematuria. At this time we are awaiting for further input from radiation oncology, possible discharge to [facility] [place] for [place]hab in the next 1-2 days. On 12/23/2022 patient is alert and oriented 3. Per nursing staff will discuss with interventional radiology if there is any plans for positive radiation to back at this time discharge planning in progress to [facility]. Patient denies chest pain or shortness of breath. Patient denies nausea vomiting or diarrhea. Patient denies any urinary burning or frequency. Per infectious disease patient has received adequate antibiotic therapy is currently being monitored closely off antibiotic therapy. Objective - Vital Signs Vital signs: Vital Signs Temp 98.5 F 12/23/22 09:10 Pulse 69 12/23/22 09:10 Resp 15 12/23/22 09:10 BP 175/83 12/23/22 09:10 Pulse Ox 94 L 12/23/22 09:10 FiO2 Intake & Output 12/22/22 12/23/22 12/23/22 18:59 06:59 18:59 Output Total 600 1000 Balance -600 -1000 Output: Urine 600 1000 Other: Voiding Method External Catheter - Exam Head normocephalic and atraumatic Neck supple no JVD no goiter Lungs clear to auscultation bilaterally no wheezing or crackles Heart regular rate and rhythm S1-S2, no rub or gallop Abdomen is soft nontender nondistended positive bowel sounds no hepatosplenomegaly Extremities no edema Neuro alert and orientated to 3 - Labs CBC & Chem 7: 12/22/22 06:40 12/22/22 06:40 Labs: Abnormal Lab Results - Last 24 Hours (Table) 12/22/22 12/22/22 Range/Units 06:40 06:40 RBC 3.88 L (4.40-5.60) X 10*6/uL MCV 102.3 H (80.0-97.0) FL MCH 35.8 H (27.0-32.0) pg Eosinophils # 0.59 H (0.04-0.35) X 10*3/uL Anion Gap 12.30 H (4.00-12.00) mmol/L Assessment and Plan Plan: 1. Generalized weakness secondary to UTI pneumonia 2. Urinary tract infection. Urine culture ordered 3. Pneumonia. Repeat 2 view chest x-ray ordered. procalcitonin level ordered patient started on IV antibiotics 4. History of coronary artery disease with previous stent placement 5. History of hyperlipidemia 6. History of essential hypertension 7. History of prostate cancer 8. Ex-smoker DVT prophylaxis Lovenox. GI prophylaxis Protonix Infectious disease and pulmonary services consulted Neurology services following Interventional radiology ordered per neurology MRI completed
[2022-12-23 11:21] LABS: Basophils # (A) 0.04 X 10*3/uL (0.00-0.10); Basophils % (A) 0.7 %; Eosinophils # (A) 0.52 X 10*3/uL (0.04-0.35); Eosinophils % (A) 8.5 %; HCT 37.6 % (39.6-50.0); Lymphocytes # (A) 1.64 X 10*3/uL (0.90-5.00); Lymphocytes % (A) 26.8 %; MCH 35.1 pg (27.0-32.0); MCHC 34.6 d/dL (32.0-37.0); MCV 101.6 FL (80.0-97.0); Mean Platelet Volume 9.9 FL (9.5-12.2); Monocytes # (A) 0.45 X 10*3/uL (0.20-1.00); Monocytes % (A) 7.4 %; NRBC Per 100 WBC 0 X 10*3/uL (0.00-0.01); Neutrophils # (A) 3.44 X 10*3/uL (1.80-7.70); Neutrophils % (A) 56.3 %; Platelet Count 224 X 10*3/uL (140-440); RDW 12.6 % (11.5-14.5); WBC 6.11 X 10*3/uL (4.50-10.00)
[2022-12-23] MEDS: MELATONIN 5 MG TABLET PO SCH (21:38)
[2022-12-23] MEDS: PRAMIPEXOLE 1 MG TAB PO SCH (21:38)
[2022-12-24] MEDS: LEVOTHYROXINE 100 MCG TAB PO SCH (06:24)
[2022-12-24] MEDS: PANTOPRAZOLE 40 MG TABLET PO SCH (06:24)
[2022-12-24] MEDS: SODIUM CHLORIDE 0.9% 1,000 ML IV SCH ×2 (08:02→22:57)
[2022-12-24] MEDS: ENOXAPARIN 40 MG/0.4 ML SYRINGE SQ SCH (08:08)
[2022-12-24] MEDS: ATORVASTATIN 40 MG TAB PO SCH (08:09)
[2022-12-24] MEDS: CHOLECALCIFEROL 25 MCG (1000 IU) TABLET PO SCH (08:09)
[2022-12-24] MEDS: ASPIRIN 81 MG PO SCH (08:09)
[2022-12-24] MEDS: MULTIVITAMINS, THERA 1 EACH TAB PO SCH (08:09)
[2022-12-24] MEDS: amLODIPine 5 MG TAB PO SCH (08:09)
[2022-12-24] MEDS: CYANOCOBALAMIN 500 MCG TAB PO SCH (08:09)
[2022-12-24] MEDS: GABAPENTIN 300 MG CAP PO SCH (08:09)
[2022-12-24] MEDS: LOSARTAN 50 MG TAB PO SCH (08:09)
[2022-12-24] MEDS: ISOSORBIDE MONONITRATE ER 30 MG TAB.ER.24H PO SCH (08:09)
[2022-12-24] MEDS: MEGESTROL 40 MG TAB PO SCH (08:10)
[2022-12-24] MEDS: LORazepam 0.5 MG TAB PO SCH (08:10)
[2022-12-24] MEDS: VIT A,C & E-LUTEIN-MINERALS 1 EACH TAB PO SCH (08:10)
[2022-12-24 09:29] VITALS: RESP 17
--- NOTE | 2022-12-24 16:36 | P.PN ---
Subjective Progress Note Date: 12/24/22 This is an 82-year-old male patient of Dr. Godoy who presents with complaints of increased weakness and falls over the past month. Patient reports he's had just generalized weakness causing him to lose his balance increasing over the past few weeks. Patient has past medical history of coronary artery disease, GERD, GI bleed, hyperlipidemia, hypertension, prostate disorder, thyroid disorder, previous heart cath with stents and ex-smoker. Head CT completed showing no acute intracranial process. Nonspecific white matter changes likely secondary to chronic small vessel ischemic disease. Chest x-ray completed showing right lower lung airspace opacities correlate for pneumonia COPD changes. Hip x-ray completed showing no evidence for acute process mild bilateral hip osteoarthritis. UA positive for urinary tract infection. Vital signs temp 97.5, heart rate 65, respiratory rate 18, blood pressure 146/75 pulse ox 97% on room air. At this time patient will be admitted patient started on IV antibiotics Rocephin and azithromycin. Pulmonary and infectious disease service is consulted PT OT services consulted repeat chest x-ray ordered for a.m. On 12/14/2022 patient was seen and examined on the medical floor he is alert and oriented 3 in no apparent distress he is complaining of cough and complaining of generalized weakness otherwise he denies any complaints there is no fever or chills no headache or dizziness no chest pain no shortness of breath no nausea or vomiting no abdominal pain no diarrhea and no urinary symptoms. On 12/15/2022 patient was seen and examined on the medical floor he is alert and oriented in no apparent distress he is complaining of generalized weakness and cough otherwise he denies any complaints. TSH was elevated at 13. Patient insists that he has been taking his Synthroid 150 g on a daily basis. At this time will increase Synthroid dose to 175 g. Continue with current management otherwise. On 12/16/2022 patient is alert and oriented 3. MRI of the spine has been ordered per neurology services. Patient denies chest pain or shortness of breath. Patient denies nausea vomiting or diarrhea. Patient denies any urinary burning or frequency On 12/18/2022 patient is alert and oriented 3. MRI of the brain completed Reviewed Per neurology. Interventional radiology consulted this time patient denies chest pain or shortness of breath. Patient denies nausea vomiting or diarrhea. Patient denies any urinary burning or frequency. On 12/19/2022 patient was seen and examined on the medical floor he is alert and oriented 3 in no apparent distress he is complaining of generalized weakness with inability to stand and walk, he is also complaining of constipation, otherwise he denies any complaints, there is no fever or chills no headache or dizziness no chest pain no shortness of breath no cough no nausea or vomiting no abdominal pain no diarrhea no blood in the stools no burning with urination no frequency or urgency and no hematuria. On 12/20/2022 patient is alert and oriented 3 currently resting in bed. Patient was evaluated by interventional radiology will be reevaluated on Wednesday for possible palliative radiation to back. At this time patient denies chest pain or shortness breath. Patient denies nausea vomiting or diarrhea. Patient denies any urinary burning or frequency On 12/21/2022 patient was seen and examined on the medical floor he is alert and oriented 3 in no apparent distress, he is complaining of generalized pain otherwise he denies any complaints there is no fever or chills no headache or dizziness no chest pain no shortness of breath no cough no nausea or vomiting no abdominal pain no diarrhea and no urinary symptoms On 12/22/2022 patient was seen and examined on the medical floor he is alert and oriented 3 in no apparent distress he is complaining of generalized weakness with inability to stand and walk, otherwise he denies any complaints, there is no fever or chills no headache or dizziness no chest pain no shortness of breath no cough no nausea or vomiting no abdominal pain no diarrhea no blood in the stools no burning with urination no frequency or urgency and no hematuria. At this time we are awaiting for further input from radiation oncology, possible discharge to [facility] on the [place] for rehab in the next 1-2 days. On 12/23/2022 patient is alert and oriented 3. Per nursing staff will discuss with interventional radiology if there is any plans for positive radiation to back at this time discharge planning in progress to [facility]. Patient denies chest pain or shortness of breath. Patient denies nausea vomiting or diarrhea. Patient denies any urinary burning or frequency. Per infectious disease patient has received adequate antibiotic therapy is currently being monitored closely off antibiotic therapy. On 12/24/2022 patient was seen and examined on the medical floor he is alert and oriented 3 in no apparent distress there is no fever or chills no headache or dizziness no chest pain no shortness of breath no cough no nausea or vomiting no abdominal pain no diarrhea and no urinary symptoms. Patient is still complaining of severe weakness with inability to stand or walk. At this time we are awaiting completion of workup and treatment by oncology and radiation oncology. Plan is to transfer to rehab unit afterwards. Objective - Vital Signs Vital signs: Vital Signs Temp 97.4 F L 12/24/22 07:49 Pulse 64 12/24/22 07:49 Resp 17 12/24/22 07:49 BP 172/78 12/24/22 07:49 Pulse Ox 93 L 12/24/22 07:49 FiO2 Intake & Output 12/23/22 12/24/22 12/24/22 18:59 06:59 18:59 Other: Voiding Method External Catheter Diaper # Voids 3 1 - Exam Head normocephalic and atraumatic Neck supple no JVD no goiter Lungs clear to auscultation bilaterally no wheezing or crackles Heart regular rate and rhythm S1-S2, no rub or gallop Abdomen is soft nontender nondistended positive bowel sounds no hepatosplen omegaly Extremities no edema Neuro alert and orientated to 3 - Labs CBC & Chem 7: 12/23/22 06:42 12/22/22 06:40 Labs: Microbiology - Last 24 Hours (Table) 12/22/22 18:43 Blood Culture - Preliminary Blood Assessment and Plan Plan: 1. Generalized weakness secondary to UTI pneumonia 2. Urinary tract infection. Urine culture ordered 3. Pneumonia. Repeat 2 view chest x-ray ordered. procalcitonin level ordered patient started on IV antibiotics 4. History of coronary artery disease with previous stent placement 5. History of hyperlipidemia 6. History of essential hypertension 7. History of prostate cancer 8. Ex-smoker DVT prophylaxis Lovenox. GI prophylaxis Protonix Infectious disease and pulmonary services consulted Neurology services following Interventional radiology ordered per neurology MRI completed
[2022-12-24] MEDS: PRAMIPEXOLE 1 MG TAB PO SCH (20:56)
[2022-12-24] MEDS: MELATONIN 5 MG TABLET PO SCH (20:56)
[2022-12-25] MEDS: PANTOPRAZOLE 40 MG TABLET PO SCH (06:52)
[2022-12-25] MEDS: LEVOTHYROXINE 100 MCG TAB PO SCH (06:52)
[2022-12-25] MEDS: VIT A,C & E-LUTEIN-MINERALS 1 EACH TAB PO SCH (09:23)
[2022-12-25] MEDS: ATORVASTATIN 40 MG TAB PO SCH (09:24)
[2022-12-25] MEDS: MULTIVITAMINS, THERA 1 EACH TAB PO SCH (09:24)
[2022-12-25] MEDS: MEGESTROL 40 MG TAB PO SCH (09:24)
[2022-12-25] MEDS: LORazepam 0.5 MG TAB PO SCH (09:24)
[2022-12-25] MEDS: SODIUM CHLORIDE 0.9% 1,000 ML IV SCH (09:25)
[2022-12-25] MEDS: GABAPENTIN 300 MG CAP PO SCH (09:25)
[2022-12-25] MEDS: ISOSORBIDE MONONITRATE ER 30 MG TAB.ER.24H PO SCH (09:25)
[2022-12-25] MEDS: LOSARTAN 50 MG TAB PO SCH (09:25)
[2022-12-25] MEDS: CYANOCOBALAMIN 500 MCG TAB PO SCH (09:25)
[2022-12-25] MEDS: CHOLECALCIFEROL 25 MCG (1000 IU) TABLET PO SCH (09:25)
[2022-12-25] MEDS: ASPIRIN 81 MG PO SCH (09:25)
[2022-12-25] MEDS: ENOXAPARIN 40 MG/0.4 ML SYRINGE SQ SCH (09:25)
[2022-12-25] MEDS: amLODIPine 5 MG TAB PO SCH (09:25)
--- NOTE | 2022-12-25 10:01 | P.PN ---
Subjective Progress Note Date: 12/25/22 This is an 82-year-old male patient of Dr. Godoy who presents with complaints of increased weakness and falls over the past month. Patient reports he's had just generalized weakness causing him to lose his balance increasing over the past few weeks. Patient has past medical history of coronary artery disease, GERD, GI bleed, hyperlipidemia, hypertension, prostate disorder, thyroid disorder, previous heart cath with stents and ex-smoker. Head CT completed showing no acute intracranial process. Nonspecific white matter changes likely secondary to chronic small vessel ischemic disease. Chest x-ray completed showing right lower lung airspace opacities correlate for pneumonia COPD changes. Hip x-ray completed showing no evidence for acute process mild bilateral hip osteoarthritis. UA positive for urinary tract infection. Vital signs temp 97.5, heart rate 65, respiratory rate 18, blood pressure 146/75 pulse ox 97% on room air. At this time patient will be admitted patient started on IV antibiotics Rocephin and azithromycin. Pulmonary and infectious disease service is consulted PT OT services consulted repeat chest x-ray ordered for a.m. On 12/14/2022 patient was seen and examined on the medical floor he is alert and oriented 3 in no apparent distress he is complaining of cough and complaining of generalized weakness otherwise he denies any complaints there is no fever or chills no headache or dizziness no chest pain no shortness of breath no nausea or vomiting no abdominal pain no diarrhea and no urinary symptoms. On 12/15/2022 patient was seen and examined on the medical floor he is alert and oriented in no apparent distress he is complaining of generalized weakness and cough otherwise he denies any complaints. TSH was elevated at 13. Patient insists that he has been taking his Synthroid 150 g on a daily basis. At this time will increase Synthroid dose to 175 g. Continue with current management otherwise. On 12/16/2022 patient is alert and oriented 3. MRI of the spine has been ordered per neurology services. Patient denies chest pain or shortness of breath. Patient denies nausea vomiting or diarrhea. Patient denies any urinary burning or frequency On 12/18/2022 patient is alert and oriented 3. MRI of the brain completed Reviewed Per neurology. Interventional radiology consulted this time patient denies chest pain or shortness of breath. Patient denies nausea vomiting or diarrhea. Patient denies any urinary burning or frequency. On 12/19/2022 patient was seen and examined on the medical floor he is alert and oriented 3 in no apparent distress he is complaining of generalized weakness with inability to stand and walk, he is also complaining of constipation, otherwise he denies any complaints, there is no fever or chills no headache or dizziness no chest pain no shortness of breath no cough no nausea or vomiting no abdominal pain no diarrhea no blood in the stools no burning with urination no frequency or urgency and no hematuria. On 12/20/2022 patient is alert and oriented 3 currently resting in bed. Patient was evaluated by interventional radiology will be reevaluated on Wednesday for possible palliative radiation to back. At this time patient denies chest pain or shortness breath. Patient denies nausea vomiting or diarrhea. Patient denies any urinary burning or frequency On 12/21/2022 patient was seen and examined on the medical floor he is alert and oriented 3 in no apparent distress, he is complaining of generalized pain otherwise he denies any complaints there is no fever or chills no headache or dizziness no chest pain no shortness of breath no cough no nausea or vomiting no abdominal pain no diarrhea and no urinary symptoms On 12/22/2022 patient was seen and examined on the medical floor he is alert and oriented 3 in no apparent distress he is complaining of generalized weakness with inability to stand and walk, otherwise he denies any complaints, there is no fever or chills no headache or dizziness no chest pain no shortness of breath no cough no nausea or vomiting no abdominal pain no diarrhea no blood in the stools no burning with urination no frequency or urgency and no hematuria. At this time we are awaiting for further input from radiation oncology, possible discharge to [facility] [place] the [place] in the next 1-2 days. On 12/23/2022 patient is alert and oriented 3. Per nursing staff will discuss with interventional radiology if there is any plans for positive radiation to back at this time discharge planning in progress to [facility]. Patient denies chest pain or shortness of breath. Patient denies nausea vomiting or diarrhea. Patient denies any urinary burning or frequency. Per infectious disease patient has received adequate antibiotic therapy is currently being monitored closely off antibiotic therapy. On 12/24/2022 patient was seen and examined on the medical floor he is alert and oriented 3 in no apparent distress there is no fever or chills no headache or dizziness no chest pain no shortness of breath no cough no nausea or vomiting no abdominal pain no diarrhea and no urinary symptoms. Patient is still complaining of severe weakness with inability to stand or walk. At this time we are awaiting completion of workup and treatment by oncology and radiation oncology. Plan is to transfer to rehab unit afterwards. On 12/25/2022 patient is alert and oriented 3. Patient to receive radiation today. Patient denies chest pain or shortness of breath. Patient denies Any Diarrhea. Patient Denies Any Urinary Burning or Frequency. Current vital signs temp 98.165, blood pressure 157/80 pulse ox 94% Objective - Vital Signs Vital signs: Vital Signs Temp 98.1 F 12/25/22 07:54 Pulse 65 12/25/22 07:54 Resp 17 12/24/22 20:00 BP 178/83 12/25/22 07:54 Pulse Ox 93 L 12/25/22 07:54 FiO2 Intake & Output 12/24/22 12/25/22 12/25/22 18:59 06:59 18:59 Other: Voiding Method Diaper Diaper # Voids 1 2 - Exam Head normocephalic and atraumatic Neck supple no JVD no goiter Lungs clear to auscultation bilaterally no wheezing or crackles Heart regular rate and rhythm S1-S2, no rub or gallop Abdomen is soft nontender nondistended positive bowel sounds no hepatosplenomegaly Extremities no edema Neuro alert and orientated to 3 - Labs CBC & Chem 7: 12/23/22 06:42 12/22/22 06:40 Labs: Microbiology - Last 24 Hours (Table) 12/22/22 18:43 Blood Culture - Preliminary Blood Assessment and Plan Plan: 1. Generalized weakness secondary to UTI pneumonia 2. Urinary tract infection. Urine culture ordered 3. Pneumonia. Repeat 2 view chest x-ray ordered. procalcitonin level ordered patient started on IV antibiotics 4. History of coronary artery disease with previous stent placement 5. History of hyperlipidemia 6. History of essential hypertension 7. History of prostate cancer 8. Ex-smoker DVT prophylaxis Lovenox. GI prophylaxis Protonix Infectious disease and pulmonary services consulted Neurology services following Interventional radiology ordered per neurology MRI completed
--- NOTE | 2022-12-25 11:21 | P.DS ---
Providers Date of admission: 12/12/22 15:24 Expected date of discharge: 12/25/22 Attending physician: Heike Tavera Consults: 12/13/22 09:15 Consult Physician Routine Consulting Provider: Michael Still Consult Reason/Comments: UTI Do you want consulting provider notified?: Yes 12/13/22 09:16 Consult Physician Routine Consulting Provider: Annelise Lara Consult Reason/Comments: pneumonia Do you want consulting provider notified?: Yes 12/14/22 10:14 Consult Physician Routine Consulting Provider: Gio Ledesma Consult Reason/Comments: Weakness, frequent falls Do you want consulting provider notified?: Yes 12/17/22 11:43 Consult Physician Routine Consulting Provider: Kaz Locke Consult Reason/Comments: hx of prostate cancer met lumbar Do you want consulting provider notified?: Yes 12/17/22 12:05 Consult Physician Routine Consulting Provider: Wyatt Nixon Consult Reason/Comments: Spinal stenosis, prostate cancer mets Do you want consulting provider notified?: Yes 12/17/22 14:39 Consult Physician Routine Consulting Provider: Rod Johnson Consult Reason/Comments: on treatment for metastatic prostate cancer Do you want consulting provider notified?: Yes 12/18/22 06:26 Consult Physician Urgent Consulting Provider: Rajeev Dodge Consult Reason/Comments: met prostate cancer to ls spine Do you want consulting provider notified?: Yes Primary care physician: Rima Godoy Hospital Course: Discharge diagnosis 1. Generalized weakness secondary to UTI pneumonia 2. Urinary tract infection. Urine culture ordered 3. Pneumonia. Repeat 2 view chest x-ray ordered. procalcitonin level ordered patient started on IV antibiotics 4. History of coronary artery disease with previous stent placement 5. History of hyperlipidemia 6. History of essential hypertension 7. History of prostate cancer 8. Ex-smoker Hospital course This is an 82-year-old male patient of Dr. Godoy who presents with complaints of increased weakness and falls over the past month. Patient reports he's had just generalized weakness causing him to lose his balance increasing over the past few weeks. Patient has past medical history of coronary artery disease, GERD, GI bleed, hyperlipidemia, hypertension, prostate disorder, thyroid disorder, previous heart cath with stents and ex-smoker. Head CT completed showing no acute intracranial process. Nonspecific white matter changes likely secondary to chronic small vessel ischemic disease. Chest x-ray completed showing right lower lung airspace opacities correlate for pneumonia COPD changes. Hip x-ray completed showing no evidence for acute process mild bilateral hip osteoarthritis. UA positive for urinary tract infection. Vital signs temp 97.5, heart rate 65, respiratory rate 18, blood pressure 146/75 pulse ox 97% on room air. At this time patient will be admitted patient started on IV antibiotics Rocephin and azithromycin. Pulmonary and infectious disease service is consulted PT OT services consulted repeat chest x-ray ordered for a.m. On 12/14/2022 patient was seen and examined on the medical floor he is alert and oriented 3 in no apparent distress he is complaining of cough and complaining of generalized weakness otherwise he denies any complaints there is no fever or chills no headache or dizziness no chest pain no shortness of breath no nausea or vomiting no abdominal pain no diarrhea and no urinary symptoms. On 12/15/2022 patient was seen and examined on the medical floor he is alert and oriented in no apparent distress he is complaining of generalized weakness and cough otherwise he denies any complaints. TSH was elevated at 13. Patient insists that he has been taking his Synthroid 150 g on a daily basis. At this time will increase Synthroid dose to 175 g. Continue with current management otherwise. On 12/16/2022 patient is alert and oriented 3. MRI of the spine has been ordered per neurology services. Patient denies chest pain or shortness of breath. Patient denies nausea vomiting or diarrhea. Patient denies any urinary burning or frequency On 12/18/2022 patient is alert and oriented 3. MRI of the brain completed Reviewed Per neurology. Interventional radiology consulted this time patient denies chest pain or shortness of breath. Patient denies nausea vomiting or diarrhea. Patient denies any urinary burning or frequency. On 12/19/2022 patient was seen and examined on the medical floor he is alert and oriented 3 in no apparent distress he is complaining of generalized weakness with inability to stand and walk, he is also complaining of constipation, otherwise he denies any complaints, there is no fever or chills no headache or dizziness no chest pain no shortness of breath no cough no nausea or vomiting no abdominal pain no diarrhea no blood in the stools no burning with urination no frequency or urgency and no hematuria. On 12/20/2022 patient is alert and oriented 3 currently resting in bed. Patient was evaluated by interventional radiology will be reevaluated on Wednesday for possible palliative radiation to back. At this time patient denies chest pain or shortness breath. Patient denies nausea vomiting or diarrhea. Patient denies any urinary burning or frequency On 12/21/2022 patient was seen and examined on the medical floor he is alert and oriented 3 in no apparent distress, he is complaining of generalized pain otherwise he denies any complaints there is no fever or chills no headache or dizziness no chest pain no shortness of breath no cough no nausea or vomiting no abdominal pain no diarrhea and no urinary symptoms On 12/22/2022 patient was seen and examined on the medical floor he is alert and oriented 3 in no apparent distress he is complaining of generalized weakness with inability to stand and walk, otherwise he denies any complaints, there is no fever or chills no headache or dizziness no chest pain no shortness of breath no cough no nausea or vomiting no abdominal pain no diarrhea no blood in the stools no burning with urination no frequency or urgency and no hematuria. At this time we are awaiting for further input from radiation oncology, possible discharge to [facility] for rehab in the next 1-2 days. On 12/25/2022 patient is alert and oriented 3. Patient to receive 1 time radiation today and will be DC'd to [facility]. Patient completed course of treatment for antibiotics for UTI. At this time patient denies chest pain or shortness of breath. Patient denies as vomiting or diarrhea. Patient denies any urinary burning or frequency Patient Condition at Discharge: Stable Plan - Discharge Summary New Discharge Prescriptions: New HYDROcodone/APAP 7.5-325MG [Mena 7.5-325] 1 each PO Q6HR PRN tab PRN Reason: Pain Melatonin 10 mg PO HS tab Levothyroxine Sodium [Synthroid] 200 mcg PO DAILY@0630 tab Continue amLODIPine [Norvasc] 5 mg PO DAILY Multivit-Min/FA/Lycopen/Lutein [Centrum Silver Tablet] 1 tab PO DAILY Aspirin [Adult Low Dose Aspirin EC] 81 mg PO DAILY Omeprazole [PriLOSEC] 20 mg PO DAILY Losartan [Cozaar] 50 mg PO DAILY Nitroglycerin Sl Tabs [Nitrostat] 0.4 mg SUBLINGUAL Q5M PRN #25 tab PRN Reason: Chest Pain Albuterol Inhaler [Ventolin Hfa Inhaler] 2 puff INHALATION RT-Q6H PRN PRN Reason: Shortness Of Breath Fish Oil/Dha/Epa [Fish Oil 1,200 mg Fish Oil] 1 cap PO DAILY Atorvastatin [Lipitor] 40 mg PO DAILY Isosorbide Mononitrate ER [Imdur] 30 mg PO DAILY Acetaminophen [Tylenol Extra Strength] 500 - 1,000 mg PO Q6H PRN PRN Reason: Pain Pramipexole [Mirapex] 1 mg PO HS Cholecalciferol [Vitamin D3 (25 Mcg = 1000 Iu)] 50 mcg PO DAILY Vit C/E/Zn/Coppr/Lutein/Zeaxan [Preservision Areds 2 Softgel] 2 cap PO DAILY Gabapentin 300 mg PO DAILY LORazepam [Ativan] 0.5 mg PO DAILY Megestrol Acetate 20 mg PO DAILY Discontinued Levothyroxine Sodium [Levoxyl] 150 mcg PO DAILY Bicalutamide [Casodex] 50 mg PO DAILY No Action Enzalutamide [Xtandi] 160 mg PO DAILY Discharge Medication List Multivit-Min/FA/Lycopen/Lutein [Centrum Silver Tablet] 1 tab PO DAILY 11/05/15 [History] amLODIPine [Norvasc] 5 mg PO DAILY 11/05/15 [History] Aspirin [Adult Low Dose Aspirin EC] 81 mg PO DAILY 08/27/16 [History] Losartan [Cozaar] 50 mg PO DAILY 09/22/17 [History] Omeprazole [PriLOSEC] 20 mg PO DAILY 09/22/17 [History] Nitroglycerin Sl Tabs [Nitrostat] 0.4 mg SUBLINGUAL Q5M PRN #25 tab 09/30/17 [Rx] Albuterol Inhaler [Ventolin Hfa Inhaler] 2 puff INHALATION RT-Q6H PRN 09/04/19 [History] Atorvastatin [Lipitor] 40 mg PO DAILY 09/04/19 [History] Fish Oil/Dha/Epa [Fish Oil 1,200 mg Fish Oil] 1 cap PO DAILY 09/04/19 [History] Isosorbide Mononitrate ER [Imdur] 30 mg PO DAILY 06/28/20 [History] Acetaminophen [Tylenol Extra Strength] 500 - 1,000 mg PO Q6H PRN 07/03/20 [History] Pramipexole [Mirapex] 1 mg PO HS 03/24/22 [History] Vit C/E/Zn/Coppr/Lutein/Zeaxan [Preservision Areds 2 Softgel] 2 cap PO DAILY 03/24/22 [History] Cholecalciferol [Vitamin D3 (25 Mcg = 1000 Iu)] 50 mcg PO DAILY 12/12/22 [History] Enzalutamide [Xtandi] 160 mg PO DAILY 12/12/22 [History] Gabapentin 300 mg PO DAILY 12/12/22 [History] LORazepam [Ativan] 0.5 mg PO DAILY 12/12/22 [History] Megestrol Acetate 20 mg PO DAILY 12/12/22 [History] HYDROcodone/APAP 7.5-325MG [Mena 7.5-325] 1 each PO Q6HR PRN tab 12/25/22 [Rx] Levothyroxine Sodium [Synthroid] 200 mcg PO DAILY@0630 tab 12/25/22 [Rx] Melatonin 10 mg PO HS tab 12/25/22 [Rx] Follow up Appointment(s)/Referral(s): Rima Godoy MD [Primary Care Provider] - 1-2 days Rod Johnson MD [STAFF PHYSICIAN] - 2 Weeks (office will call) [facility], [NON[facility]STAFF] - As Needed Vincent Parkinson DO [STAFF PHYSICIAN] - 01/21/23 2:30 pm (For weakness has NPH) Activity/Diet/Wound Care/Special Instructions: Patients home meds sent with daughter Discharge Disposition: TRANSFER TO SNF/ECF
--- NOTE | 2022-12-25 13:04 | P.HPADDEND ---
H&P Addendum H&P Addendum Date: 12/25/22 Patient was maintained on Xtandi in the past, however this was held during this admission, due to severe weakness and falls. This will be continued to be held while patient is in the rehab at [facility]. It may be resumed later on if weakness has resolved. Patient received radiation therapy during this admission. Per radiation oncology. On the one session is needed at this time. Patient is not anticipated to need any further radiation therapy while he is admitted at [facility] for rehab.
[2022-12-25 13:43] VITALS: BP 130/77; PULSE 70; TEMP 98.5
== END 2022-12-25 14:25 | DRG 689 ==
LOC: EC 12:40 → 4SSUR 15:24
PROVIDERS: ADMIT Internal Medicine; ATTEND Internal Medicine
PROC: DP0C2ZZ Beam Radiation of Other Bone using Photons >10 MeV (ICD-10-PCS; principal; 2022-12-25)
DX: N39.0 Urinary tract infection, site not specified (principal); J18.9 Pneumonia, unspecified organism; J44.0 Chronic obstructive pulmonary disease with (acute) lower respiratory infection; C79.51 Secondary malignant neoplasm of bone; G91.2 (Idiopathic) normal pressure hydrocephalus; Z87.891 Personal history of nicotine dependence; C61 Malignant neoplasm of prostate; G89.3 Neoplasm related pain (acute) (chronic); E03.9 Hypothyroidism, unspecified; R73.03 Prediabetes; E78.5 Hyperlipidemia, unspecified; E86.0 Dehydration; G47.33 Obstructive sleep apnea (adult) (pediatric); I10 Essential (primary) hypertension; I25.10 Atherosclerotic heart disease of native coronary artery without angina pectoris; K44.9 Diaphragmatic hernia without obstruction or gangrene; M51.36 Other intervertebral disc degeneration, lumbar region; M47.816 Spondylosis without myelopathy or radiculopathy, lumbar region; H93.19 Tinnitus, unspecified ear; G93.0 Cerebral cysts; K21.9 Gastro-esophageal reflux disease without esophagitis; R53.1 Weakness; T50.995A Adverse effect of other drugs, medicaments and biological substances, initial encounter; R29.6 Repeated falls; M48.00 Spinal stenosis, site unspecified; R32 Unspecified urinary incontinence; S80.02XA Contusion of left knee, initial encounter; Z28.311 Partially vaccinated for COVID-19; Z92.3 Personal history of irradiation; Z91.81 History of falling; Z90.79 Acquired absence of other genital organ(s); Z79.82 Long term (current) use of aspirin; Z79.890 Hormone replacement therapy; Z79.899 Other long term (current) drug therapy; Z87.440 Personal history of urinary (tract) infections; Z95.5 Presence of coronary angioplasty implant and graft; Z96.652 Presence of left artificial knee joint; Z91.030 Bee allergy status; Z91.040 Latex allergy status; Z87.19 Personal history of other diseases of the digestive system
CPT/HCPCS: 36415; 70450; 70553; 71046; 72148; 73502; 77280; 77290; 77307; 77334; 77412; 80048; 80053; 81001; 82550; 82607; 82746; 83605; 83735; 84145; 84439; 84443; 84484; 85025; 85610; 85730; 87040; 87086; 93005; 94760; 96361; 96374; 99285

== ENCOUNTER 2023-01-03 14:02 | Emergency (ER) | payer MEDICARE, BC ==
[2023-01-03 14:09] VITALS: TEMP 97.6
--- NOTE | 2023-01-03 15:26 | ED ---
General Adult HPI - General Chief complaint: Syncope Stated complaint: syncope Time Seen by Provider: 01/03/23 14:18 Source: EMS Mode of arrival: EMS Limitations: altered mental status - History of Present Illness Initial comments: Dictation was produced using [employer] dictation software. please excuse any grammatical, word or spelling errors. Chief Complaint: 82[place]year-[place] [facility] [place] to the ER after syncopal episode History of Present Illness: 82-year-old male presents to the ER after single episode he was at lunch when he was noted to syncopize. Episode was witnessed. Patient was unresponsive for less than a minute. No postictal period. According to EMS staff at [facility] reports the patient is at baseline alert and oriented 1. Per EMS he is alert and oriented 3. Patient is alert and oriented 3 for me. He is able to identify his name, year and place. States that he's been having some left hip pain. He also has been having some bouts of crampy abdominal pain. Otherwise at the bedside is asymptomatic and feels at baseline. Patient has multiple comorbidities. The ROS documented in this emergency department record has been reviewed and confirmed by me. Those systems with pertinent positive or negative responses have been documented in the HPI. All other systems are other negative and/or noncontributory. - Related Data Home Medications Medication Instructions Recorded Confirmed Multivit-Min/FA/Lycopen/Lutein 1 tab PO DAILY 11/05/15 12/12/22 [Centrum Silver Tablet] amLODIPine [Norvasc] 5 mg PO DAILY 11/05/15 12/12/22 Aspirin [Adult Low Dose Aspirin EC] 81 mg PO DAILY 08/27/16 12/12/22 Losartan [Cozaar] 50 mg PO DAILY 09/22/17 12/12/22 Omeprazole [PriLOSEC] 20 mg PO DAILY 09/22/17 12/12/22 Albuterol Inhaler [Ventolin Hfa 2 puff INHALATION RT-Q6H PRN 09/04/19 12/12/22 Inhaler] Atorvastatin [Lipitor] 40 mg PO DAILY 09/04/19 12/12/22 Fish Oil/Dha/Epa [Fish Oil 1,200 1 cap PO DAILY 09/04/19 12/12/22 mg Fish Oil] Isosorbide Mononitrate ER [Imdur] 30 mg PO DAILY 06/28/20 12/12/22 Acetaminophen [Tylenol Extra 500 - 1,000 mg PO Q6H PRN 07/03/20 12/12/22 Strength] Pramipexole [Mirapex] 1 mg PO HS 03/24/22 12/14/22 Vit C/E/Zn/Coppr/Lutein/Zeaxan 2 cap PO DAILY 03/24/22 12/12/22 [Preservision Areds 2 Softgel] Cholecalciferol [Vitamin D3 (25 50 mcg PO DAILY 12/12/22 12/12/22 Mcg = 1000 Iu)] Enzalutamide [Xtandi] 160 mg PO DAILY 12/12/22 12/14/22 Gabapentin 300 mg PO DAILY 12/12/22 12/12/22 LORazepam [Ativan] 0.5 mg PO DAILY 12/12/22 12/12/22 Megestrol Acetate 20 mg PO DAILY 12/12/22 12/12/22 Previous Rx's Medication Instructions Recorded Nitroglycerin Sl Tabs [Nitrostat] 0.4 mg SUBLINGUAL Q5M PRN #25 tab 09/30/17 HYDROcodone/APAP 7.5-325MG [[place] 1 each PO Q6HR PRN tab 12/25/22 7.5-325] Levothyroxine Sodium [Synthroid] 200 mcg PO DAILY@0630 tab 12/25/22 Melatonin 10 mg PO HS tab 12/25/22 Allergies Allergy/AdvReac Type Severity Reaction Status Date / Time venom-honey bee Allergy Severe Swelling Verified 01/03/23 14:09 [bee venom (honey bee)] latex Allergy Rash/Hives Verified 01/03/23 14:09 Review of Systems ROS Statement: Those systems with pertinent positive or pertinent negative responses have been documented in the HPI. ROS Other: All systems not noted in ROS Statement are negative. Past Medical History Past Medical History: Coronary Artery Disease (CAD), Cancer, GERD/Reflux, GI Bleed, Hyperlipidemia, Hypertension, Prostate Disorder, Sleep Apnea/CPAP/BIPAP, Thyroid Disorder Additional Past Medical History / Comment(s): PROSTATE CANCER (SURGERY & RADIATION [place] (2011) , hiatal hernia, constipation, hx ulcer yrs ago, INCONTINENT URINE-USES EXTERNAL MALE CATHETER, occasional dizziness."spinal tap done feb 12 2022 & MRI "water on the brain"-following with Dr Parkinson and specialist-ringing carolyn ear History of Any Multi-Drug Resistant Organisms: None Reported Past Surgical History: Heart Catheterization With Stent, Hernia Repair, Prostate Surgery, Tonsillectomy Additional Past Surgical History / Comment(s): colonoscopy, surgery for artifi cial urethral sphincter inserted and removed., carpal tunnel-left, nasal surgery. Past Anesthesia/Blood Transfusion Reactions: No Reported Reaction Date of Last Stent Placement:: 2001 Past Psychological History: No Psychological Hx Reported Smoking Status: Former smoker Past Alcohol Use History: None Reported Past Drug Use History: None Reported - Past Family History Sister(s) Family Medical History: Cancer Brother(s) Family Medical History: Cancer, CVA/TIA General Exam - General Exam Comments Initial Comments: PHYSICAL EXAM: General Impression: Alert and oriented x3, not in acute distress HEENT: Normocephalic atraumatic, extra-ocular movements intact, pupils equal and reactive to light bilaterally, mucous membranes moist. Cardiovascular: Heart regular rate and rhythm Chest: Able to complete full sentences, no retractions, no tachypnea Abdomen: abdomen soft, non-tender, non-distended, no organomegaly Musculoskeletal: Pulses present and equal in all extremities, no peripheral edema Motor: no focal deficits noted Neurological: CN II-XII grossly intact, no focal motor or sensory deficits noted Skin: Intact with no visualized rashes Psych: Normal affect and mood Limitations: altered mental status Course Vital Signs 01/03/23 01/03/23 01/03/23 14:05 14:30 15:00 Temperature 97.6 F Pulse Rate 73 72 71 Respiratory 18 22 22 Rate Blood Pressure 117/57 106/60 110/61 O2 Sat by Pulse 95 95 96 Oximetry 01/03/23 01/03/23 15:30 16:00 Temperature Pulse Rate 72 73 Respiratory 22 22 Rate Blood Pressure 106/59 111/60 O2 Sat by Pulse 96 94 L Oximetry Medical Decision Making - Medical Decision Making Was pt. sent in by a medical professional or institution (, PA, CHEMICALS FERMENTATION OPERATOR, urgent c are, hospital, or [facility]way...) When possible be specific @ -No Did you speak to anyone other than the patient for history (EMS, parent, family, police, friend...)? What history was obtained from this source @ -No Did you review nursing and triage notes (agree or disagree)? Why? @ -I reviewed and agree with nursing and triage notes Were old charts reviewed (outside hosp., previous admission, EMS record, old EKG, old radiological studies, urgent care reports/EKG's, half-way records)? Report findings @ -No old charts were reviewed Differential Diagnosis (chest pain, altered mental status, abdominal pain women, abdominal pain men, vaginal bleeding, musculoskeletal, weakness, fever, dyspnea, syncope, headache, dizziness, GI bleed, back pain, seizure, CVA, palpatations, mental health)? @ -FDifferential Syncope: Valvular disease, hypertrophic cardiomyopathy, pulmonary embolism, tamponade, tachycardia, bradycardia, PR, hypovolemia, hemorrhage, dissection, anemia, intracranial hemorrhage, seizure, hypoglycemia, carbon monoxide poisoning, this is not meant to be an all-inclusive list. EKG interpreted by me (3pts min.). @ -My EKG interpretation: Ventricular rate 74, sinus rhythm,. Interval 136, QRS 84, QTC 459. No UT prolongation, no QTC prolongation, no ST or T-wave changes noted. Overall, this EKG is unremarkable X-rays interpreted by me (1pt min.). @ -None done CT interpreted by me (1pt min.). @ -None done U/S interpreted by me (1pt. min.). @ -None done What testing was considered but not performed or refused? (CT, X-rays, U/S, labs)? Why? @ -None What meds were considered but not given or refused? Why? @ -None Did you discuss the management of the patient with other professionals (professionals i.e. , PA, CHEMICALS FERMENTATION OPERATOR, lab, RT, psych nurse, dialysis social worker, wind field manager, teacher, bomb squad officer, watch caser)? Give summary @ -No Was smoking cessation discussed for >3mins.? @ -No Was critical care preformed (if so, how long)? @ -No Were there social determinants of health that impacted care today? How? (Homelessness, low income, unemployed, alcoholism, drug addiction, transportation, low edu. Level, literacy, decrease access to med. care, [place] [facility], rehab)? @ -No Was there de-escalation of care discussed even if they declined (Discuss DNR or withdrawal of care, Hospice)? DNR status @ -No What co-morbidities impacted this encounter? (DM, HTN, Smoking, COPD, CAD, Cancer, CVA, ARF, Chemo, Hep., AIDS, mental health diagnosis, sleep apnea, morbid obesity)? @ -None Was patient admitted / discharged? Hospital course, mention meds given and route, prescriptions, significant lab abnormalities, going to OR and other pertinent info. @ -82 Year-old male presents emergency Department with syncopal episode. Vital signs upon arrival are within acceptable limits. Patient has no localizing symptoms or signs. Laboratory evaluation obtained. CBC about panel is unremarkable. Troponin is negative. Reevaluated bedside at 4:30 PM and found to be in stable medical condition. Discussed disposition options were discussed. Patient's severe for discharge. Undiagnosed new problem with uncertain prognosis? @ -No Drug Therapy requiring intensive monitoring for toxicity (Heparin, Nitro, Insulin, Cardizem)? @ -No Were any procedures done? @ -No Diagnosis/symptom? Acute, or Chronic, or Acute on Chronic? Uncomplicated (without systemic symptoms) or Complicated (systemic symptoms)? @ -Syncope Side effects of treatment? @ -No Exacerbation, Progression, or Severe Exacerbation? @ -No Poses a threat to life or bodily function? How? (Chest pain, USA, PR, pneumonia, PE, COPD, DKA, ARF, appy, cholecystitis, CVA, Diverticulitis, Homicidal, Suicidal, threat to staff... and all critical care pts) @ -No - Lab Data Result diagrams: 01/03/23 15:17 01/03/23 15:17 Lab Results 01/03/23 01/03/23 01/03/23 Range/Units 15:17 15:17 15:17 WBC 6.1 (3.8-10.6) k/uL RBC 3.80 L (4.30-5.90) m/uL Hgb 13.3 (13.0-17.5) gm/dL Hct 40.2 (39.0-53.0) % MCV 105.8 H (80.0-100.0) fL MCH 35.0 (25.0-35.0) pg MCHC 33.1 (31.0-37.0) g/dL RDW 12.3 (11.5-15.5) % Plt Count 234 (150-450) k/uL MPV 8.7 Neutrophils % 51 % Lymphocytes % 32 % Monocytes % 8 % Eosinophils % 7 % Basophils % 0 % Neutrophils # 3.1 (1.3-7.7) k/uL Lymphocytes # 2.0 (1.0-4.8) k/uL Monocytes # 0.5 (0-1.0) k/uL Eosinophils # 0.5 (0-0.7) k/uL Basophils # 0.0 (0-0.2) k/uL Macrocytosis Slight Sodium 138 (137-145) mmol/L Potassium 4.3 (3.5-5.1) mmol/L Chloride 107 (98-107) mmol/L Carbon Dioxide 22 (22-30) mmol/L Anion Gap 9 mmol/L BUN 17 (9-20) mg/dL Creatinine 0.97 (0.66-1.25) mg/dL Est GFR (CKD-EPI)AfAm 83 (>60 ml/min/1.73 sqM) Est GFR (CKD-EPI)NonAf 72 (>60 ml/min/1.73 sqM) Glucose 122 H (74-99) mg/dL Plasma Lactic Acid Terell 1.6 (0.7-2.0) mmol/L Calcium 9.2 (8.4-10.2) mg/dL Magnesium 1.8 (1.6-2.3) mg/dL Total Bilirubin 0.6 (0.2-1.3) mg/dL AST 24 (17-59) U/L ALT 18 (4-49) U/L Alkaline Phosphatase 59 (38-126) U/L Troponin I (0.000-0.034) ng/mL Total Protein 6.3 (6.3-8.2) g/dL Albumin 3.8 (3.5-5.0) g/dL 01/03/23 Range/Units 15:17 WBC (3.8-10.6) k/uL RBC (4.30-5.90) m/uL Hgb (13.0-17.5) gm/dL Hct (39.0-53.0) % MCV (80.0-100.0) fL MCH (25.0-35.0) pg MCHC (31.0-37.0) g/dL RDW (11.5-15.5) % Plt Count (150-450) k/uL MPV Neutrophils % % Lymphocytes % % Monocytes % % Eosinophils % % Basophils % % Neutrophils # (1.3-7.7) k/uL Lymphocytes # (1.0-4.8) k/uL Monocytes # (0-1.0) k/uL Eosinophils # (0-0.7) k/uL Basophils # (0-0.2) k/uL Macrocytosis Sodium (137-145) mmol/L Potassium (3.5-5.1) mmol/L Chloride (98-107) mmol/L Carbon Dioxide (22-30) mmol/L Anion Gap mmol/L BUN (9-20) mg/dL Creatinine (0.66-1.25) mg/dL Est GFR (CKD-EPI)AfAm (>60 ml/min/1.73 sqM) Est GFR (CKD-EPI)NonAf (>60 ml/min/1.73 sqM) Glucose (74-99) mg/dL Plasma Lactic Acid Terell (0.7-2.0) mmol/L Calcium (8.4-10.2) mg/dL Magnesium (1.6-2.3) mg/dL Total Bilirubin (0.2-1.3) mg/dL AST (17-59) U/L ALT (4-49) U/L Alkaline Phosphatase (38-126) U/L Troponin I <0.012 (0.000-0.034) ng/mL Total Protein (6.3-8.2) g/dL Albumin (3.5-5.0) g/dL Disposition Clinical Impression: Syncope Disposition: HOME SELF-CARE Condition: Fair Instructions (If sedation given, give patient instructions): Syncope (ED) Is patient prescribed a controlled substance at d/c from ED?: No Referrals: Heike Tavera MD [Primary Care Provider] - 1-2 days Time of Disposition: 16:34
[2023-01-03 15:36] LABS: Basophils % (A) 0 %; Eosinophils # (A) 0.5 k/uL (0-0.7); Eosinophils % (A) 7 %; HCT 40.2 % (39.0-53.0); HGB 13.3 gm/dL (13.0-17.5); Lymphocytes % (A) 32 %; MCHC 33.1 g/dL (31.0-37.0); MCV 105.8 fL (80.0-100.0); Macrocytosis Slight; Mean Platelet Volume 8.7; Monocytes # (A) 0.5 k/uL (0-1.0); Monocytes % (A) 8 %; Neutrophils # (A) 3.1 k/uL (1.3-7.7); Neutrophils % (A) 51 %; Platelet Count 234 k/uL (150-450); RDW 12.3 % (11.5-15.5); WBC 6.1 k/uL (3.8-10.6)
[2023-01-03 15:50] LABS: ALT 18 U/L (4-49); AST 24 U/L (17-59); African American GFR (CKD) 83 (>60 ml/min/1.73 sqM); Albumin 3.8 g/dL (3.5-5.0); Alkaline Phosphatase 59 U/L (38-126); Anion Gap 9 mmol/L; Blood Urea Nitrogen 17 mg/dL (9-20); Calcium 9.2 mg/dL (8.4-10.2); Carbon Dioxide 22 mmol/L (22-30); Chloride 107 mmol/L (98-107); Glucose 122 mg/dL (74-99); Magnesium 1.8 mg/dL (1.6-2.3); Non-African American GFR(CKD) 72 (>60 ml/min/1.73 sqM); Potassium 4.3 mmol/L (3.5-5.1); Sodium 138 mmol/L (137-145); Total Bilirubin 0.6 mg/dL (0.2-1.3); Total Protein 6.3 g/dL (6.3-8.2)
[2023-01-03 16:43] VITALS: BP 108/65; PULSE 69; RESP 20
== END 2023-01-03 17:45 | disposition home or self-care (01) ==
LOC: EC 14:02
DX: R55 Syncope and collapse (principal); I10 Essential (primary) hypertension; I25.10 Atherosclerotic heart disease of native coronary artery without angina pectoris; E78.5 Hyperlipidemia, unspecified; K21.9 Gastro-esophageal reflux disease without esophagitis; Z79.82 Long term (current) use of aspirin; Z79.899 Other long term (current) drug therapy; Z91.030 Bee allergy status; Z91.040 Latex allergy status; Z87.891 Personal history of nicotine dependence; Z95.5 Presence of coronary angioplasty implant and graft
CPT/HCPCS: 36415; 80053; 83605; 83735; 84484; 85025; 93005; 99284